=== PATIENT | female | born 1950 | race Caucasian/White ===

== ENCOUNTER 2016-09-23 18:32 | Emergency (ER) | payer MEDICARE ==
[2014-04-19 13:28] VITALS: BMI 23.8
[~2016-09-23 18:32] MED LIST: ADVAIR 250/501 DISK INH; BAYER CHEWABLE81 MG PO; BRILINTA90 MG PO; EFFEXOR XR75 MG PO; KLONOPIN1 MG PO; KOMBIGLYZE XR1 EAC1 PO; NEURONTIN600 MG PO; PRINIVIL20 MG PO; PROTONIX40 MG PO
== END 2016-09-23 20:30 | disposition home or self-care (01) ==
LOC: D.ER 18:32
DX: S00.03XA Contusion of scalp, initial encounter (principal); X58.XXXA Exposure to other specified factors, initial encounter; Y93.89 Activity, other specified; Y92.89 Other specified places as the place of occurrence of the external cause; S30.0XXA Contusion of lower back and pelvis, initial encounter; S16.1XXA Strain of muscle, fascia and tendon at neck level, initial encounter; I71.4 Abdominal aortic aneurysm, without rupture; J44.9 Chronic obstructive pulmonary disease, unspecified; I10 Essential (primary) hypertension

== ENCOUNTER 2016-10-02 19:45 | Observation (INO) | payer MEDICARE ==
[~2016-10-02] VITALS: Ht 170.2 cm; Wt 63.5 kg
[2016-10-03 00:51] VITALS: BMI 21.9
[2016-10-03] MEDS ORDERED: HYDROCHLOROTHIA25 MG PO (01:06)
[2016-10-03] MEDS ORDERED: ABILIFY20 MG PO (01:09)
[2016-10-03 08:02] VITALS: BP 124/76
[2016-10-03 11:38] LABS: BASOPHILS 0.1 % (0-2); EOSINOPHILS 3.3 % (0-7); HEMATOCRIT 39.8 % (36.0-48.0); HEMOGLOBIN 12.5 g/dL (12-16); IMMATURE GRANULOCYTES 0.4 % (0-5); LYMPHOCYTES 13.8 % (15-50); MCH 28.7 pg (26.0-34.0); MCHC 31.4 g/dL (31.0-37.0); MCV 91.5 fL (80.0-100.0); MEAN PLATELET VOLUME 9.7 fL (7.4-10.4); MONOCYTES 6.5 % (2-11); NEUTROPHILS 75.9 % (40-80); PLATELET COUNT 235 10x3/uL (130-400); RBC 4.35 10x6/uL (4.00-5.40); RDW 14.7 % (11.5-14.5)
[2016-10-03 12:01] LABS: ALBUMIN 3.3 g/dL (3.4-5.0); ANION GAP 16.4 mmol/L (8-16); BILIRUBIN - TOTAL 0.5 mg/dL (0.2-1.3); CALCIUM 9.4 mg/dL (8.5-10.1); CARBON DIOXIDE 23.8 mmol/L (21.0-32.0); CREATININE - SERUM 2.2 mg/dL (0.6-1.3); POTASSIUM - SERUM 4.2 mmol/L (3.5-5.1); PROTEIN - SERUM 7.5 g/dL (6.4-8.2)
[2016-10-03 12:28] VITALS: BP 133/80
[2016-10-03 14:01] VITALS: Ht 170.2 cm; Wt 63.5 kg
[2016-10-03 15:59] VITALS: BP 150/90
[2016-10-03 20:00] VITALS: BP 185/90
[2016-10-04] VITALS: BP 157/82
[2016-10-04 04:00] VITALS: BP 141/85
[2016-10-04 05:47] LABS: BASOPHILS 0.2 % (0-2); EOSINOPHILS 3.5 % (0-7); HEMATOCRIT 35.5 % (36.0-48.0); HEMOGLOBIN 10.8 g/dL (12-16); IMMATURE GRANULOCYTES 0.4 % (0-5); MCH 28.1 pg (26.0-34.0); MCHC 30.4 g/dL (31.0-37.0); MCV 92.2 fL (80.0-100.0); MEAN PLATELET VOLUME 9.7 fL (7.4-10.4); MONOCYTES 10.4 % (2-11); NEUTROPHILS 67.5 % (40-80); PLATELET COUNT 219 10x3/uL (130-400); RBC 3.85 10x6/uL (4.00-5.40); RDW 14.8 % (11.5-14.5)
[2016-10-04 05:51] LABS: WBC 5.1 10x3/uL (4.8-10.8)
[2016-10-04 06:04] LABS: ALBUMIN 2.9 g/dL (3.4-5.0); ANION GAP 16.6 mmol/L (8-16); BILIRUBIN - TOTAL 0.32 mg/dL (0.2-1.3); CARBON DIOXIDE 21.8 mmol/L (21.0-32.0); POTASSIUM - SERUM 4.4 mmol/L (3.5-5.1); PROTEIN - SERUM 6.6 g/dL (6.4-8.2)
[2016-10-04 08:17] VITALS: BP 153/97
[2016-10-04 12:03] VITALS: BP 179/100
[2016-10-04 16:06] VITALS: BP 146/95
[2016-10-04 20:00] VITALS: BP 171/92
[2016-10-05] VITALS: BP 124/76
[2016-10-05 04:00] VITALS: BP 139/56; BP 155/83
[2016-10-05 05:28] LABS: BASOPHILS 0.2 % (0-2); EOSINOPHILS 6.2 % (0-7); HEMOGLOBIN 10.4 g/dL (12-16); IMMATURE GRANULOCYTES 0.2 % (0-5); LYMPHOCYTES 19.1 % (15-50); MCH 28.3 pg (26.0-34.0); MCHC 31.5 g/dL (31.0-37.0); MEAN PLATELET VOLUME 9.7 fL (7.4-10.4); MONOCYTES 9.4 % (2-11); NEUTROPHILS 64.9 % (40-80); PLATELET COUNT 206 10x3/uL (130-400); RBC 3.68 10x6/uL (4.00-5.40); RDW 14.5 % (11.5-14.5); WBC 5.2 10x3/uL (4.8-10.8)
[2016-10-05 05:30] LABS: MCV 89.7 fL (80.0-100.0)
[2016-10-05 06:09] LABS: ALBUMIN 2.6 g/dL (3.4-5.0); ANION GAP 13.6 mmol/L (8-16); BILIRUBIN - TOTAL 0.36 mg/dL (0.2-1.3); CALCIUM 8.7 mg/dL (8.5-10.1); CARBON DIOXIDE 21.7 mmol/L (21.0-32.0); CREATININE - SERUM 1.6 mg/dL (0.6-1.3)
[2016-10-05 06:11] LABS: POTASSIUM - SERUM 3.3 mmol/L (3.5-5.1)
[2016-10-05 09:04] VITALS: BP 158/87
--- NOTE | 2016-10-07 14:23 | PRO ---
PATIENT:TIM GARCIA MEDICAL RECORD: [id number] : 54 LOCATION:D.[id number] ADMISSION DATE: 10/02/16 PROCEDURE PERFORMED BY: MARLENI PAULINO MD DATE OF PROCEDURE: 10/05/2016 DATE OF PROCEDURE: 10/05/2016. ASSISTANT PROFESSOR OF NURSING: Marleni Paulino MD. PROCEDURE: EGD with food bolus removal and Savary dilation to a 54-[place] Citizen size. INDICATION: The patient is a 66-year-old white female who was admitted with a questionable food bolus and chronic dysphagia. She has had multiple dilations over the years, the last being about little less than a year ago. She is eating roast beef and apparently became stuck in her esophagus. She was able to handle her secretions without difficulty. She is now for EGD. PREMEDICATION: Taper anesthesia. INSTRUMENT: Olympus video gastroscope. FINDINGS: The endoscope was passed through the oropharynx to the second portion of the duodenum without difficulty. The esophagus did reveal some roast beef at the GE junction. It seems like it was only a partial bolus, so I could easily pass scope into the stomach. I easily passed the rest this roast beef into the rest of the stomach without difficulty. What remained was a [id number] size hiatal hernia and a mild stricture at the GE junction, which I dilated with a 54-[place] Citizen Savary dilator without difficulty over a wire. The rest of the stomach and duodenum were normal. The patient tolerated procedure well without any complication. IMPRESSION: 1. Mild esophageal food bolus now status post removal as noted above. 2. Small to moderate sized hiatal hernia. 3. Mild chronic peptic stricture, now status post repeat Savary dilatation to a 54-[place] Citizen size. 4. Otherwise, normal esophagogastroduodenoscopy. RECOMMENDATIONS: 1. Okay to discharge home on a soft mechanical diet. 2. Protonix 40 mg daily to take indefinitely. 3. Repeat EGD with dilatation in about 6 months. 4. Okay for discharge planning by me. TRANSINT:[id number] Voice Confirmation ID: [id number] DOCUMENT ID: [id number] PROCEDURE NOTE [id number] TIM GARCIA JOHN MD at 1423 CC: CASANDRA GOODMAN MD [id number] DICTATION DATE: 10/05/16 1730 CLINICAL UNIT COORDINATOR: 10/06/16 0452 DIS IN 10/05/16 [facility] [address] [address] [place], [facility]
== END 2016-10-05 14:52 | disposition home or self-care (01) ==
LOC: D.ER 19:45 → D.MS 23:47 → OBSVTIME 23:48 → D.MS 10-05 14:52
PROVIDERS: ADMIT Emergency Medicine
DX: T18.128A Food in esophagus causing other injury, initial encounter (principal); X58.XXXA Exposure to other specified factors, initial encounter; R13.10 Dysphagia, unspecified; K44.9 Diaphragmatic hernia without obstruction or gangrene; K22.2 Esophageal obstruction

== ENCOUNTER → 2016-10-23 07:55 | Outpatient (CLI) | payer MEDICARE ==
[2016-10-03 14:01] VITALS: BMI 21.9
[~2016-10-23 07:55] MED LIST changes: +ABILIFY20 MG PO; +HYDROCHLOROTHIA25 MG PO
[2016-10-23 09:04] LABS: CREATININE - SERUM 1.8 mg/dL (0.6-1.3)
== END | disposition home or self-care (01) ==
LOC: D.CT 07:55
PROVIDERS: Family Medicine
DX: R91.1 Solitary pulmonary nodule (principal); R06.02 Shortness of breath

== ENCOUNTER → 2016-10-31 06:04 | Outpatient (CLI) | payer MEDICARE ==
[~2016-10-31] VITALS: Ht 170.2 cm; Wt 62.3 kg
[~2016-10-31 06:04] MED LIST changes: +LIBRIUM25 MG PO; +PROAIR HFA8.5 GM INH
[2016-10-31 06:45] VITALS: Ht 170.2 cm; Wt 62.3 kg
[2016-10-31 06:47] LABS: BASOPHILS 0.4 % (0-2); EOSINOPHILS 7.5 % (0-7); HEMATOCRIT 38.5 % (36.0-48.0); HEMOGLOBIN 11.9 g/dL (12-16); IMMATURE GRANULOCYTES 0.9 % (0-5); LYMPHOCYTES 25.6 % (15-50); MCH 28.2 pg (26.0-34.0); MCHC 30.9 g/dL (31.0-37.0); MCV 91.2 fL (80.0-100.0); MEAN PLATELET VOLUME 10.7 fL (7.4-10.4); MONOCYTES 8.9 % (2-11); NEUTROPHILS 56.7 % (40-80); PLATELET COUNT 246 10x3/uL (130-400); RBC 4.22 10x6/uL (4.00-5.40); RDW 14.5 % (11.5-14.5); WBC 5.6 10x3/uL (4.8-10.8)
[2016-10-31 06:59] LABS: CALCIUM 9.1 mg/dL (8.5-10.1); CREATININE - SERUM 2.4 mg/dL (0.6-1.3)
[2016-10-31 07:04] LABS: APTT 29.4 SECONDS (22.8-39.4); INR 0.88 (0.85-1.17); PROTIME 11.7 SECONDS (11.6-15.0)
--- NOTE | 2016-10-31 11:13 | NUR ---
0905 SEE POST PROCEDURE CHECKLIST FOR VITAL SIGNS
== END | disposition home or self-care (01) ==
LOC: D.OPS 06:04 → D.CT 08:00
PROVIDERS: Specialist
DX: R91.8 Other nonspecific abnormal finding of lung field (principal)

== ENCOUNTER 2019-07-28 14:39 | Inpatient (IN) | payer MEDICARE ==
[~2019-07-28] VITALS: Ht 170.2 cm; Wt 66.6 kg
[2019-07-28] MEDS ORDERED: ONGLYZA5 MG PO (14:47)
[2019-07-28] MEDS ORDERED: PRISTIQ100 MG PO (14:48)
[2019-07-28] MEDS ORDERED: LYRICA100 MG PO (14:49)
[2019-07-28] MEDS ORDERED: GLUCOTROL XL 1010 MG PO (14:49)
[2019-07-28] MEDS ORDERED: INDERAL LA160 MG PO (14:50)
[2019-07-28] MEDS ORDERED: ELIQUIS2.5 MG PO (14:50)
[2019-07-28 15:20] LABS: BASOPHILS 0.1 % (0-2); EOSINOPHILS 0.3 % (0-7); HEMOGLOBIN 9.8 g/dL (12-16); IMMATURE GRANULOCYTES 0.7 % (0-5); LYMPHOCYTES 8.5 % (15-50); MCHC 30.6 g/dL (31.0-37.0); MCV 88.2 fL (80.0-100.0); MEAN PLATELET VOLUME 10.7 fL (7.4-10.4); MONOCYTES 6.1 % (2-11); NEUTROPHILS 84.3 % (40-80); RBC 3.63 10x6/uL (4.00-5.40); RDW 15.9 % (11.5-14.5); WBC 8.7 10x3/uL (4.8-10.8)
[2019-07-28 15:32] LABS: PLATELET COUNT 193 10x3/uL (130-400)
[2019-07-28 15:38] LABS: CALC OSMOLALITY 275 mosm/kg (275-300); CALCIUM 8.9 mg/dL (8.5-10.1); CARBON DIOXIDE 33.8 mmol/L (21.0-32.0); CHLORIDE - SERUM 98 mmol/L (98-107); CREATININE - SERUM 1.3 mg/dL (0.6-1.3); GLUCOSE 176 mg/dL (74-106); SODIUM 134 mmol/L (136-145); UREA NITROGEN 25 mg/dL (7-18); eGFR NON AFRICAN AMERICAN 43 mL/min (90-120)
[2019-07-28 15:45] VITALS: BP 132/77
[2019-07-28 15:53] LABS: ALBUMIN 2.3 g/dL (3.4-5.0); ALKALINE PHOSPHATASE 119 U/L (30-120); ALT (SGPT) 20 U/L (10-68); BILIRUBIN - TOTAL 0.38 mg/dL (0.2-1.3); CKMB 1.3 U/L (0.0-3.6); CREATINE KINASE 12 UL (21-215); MAGNESIUM - SERUM 1.7 mg/dL (1.8-2.4); PRO BNP 7698 pg/mL (0-125); PROTEIN - SERUM 6.1 g/dL (6.4-8.2)
[2019-07-28 15:59] LABS: INR 1.23 (0.85-1.17); PROTIME 15.4 SECONDS (11.6-15.0)
[2019-07-28 16:01] LABS: D-DIMER-QUANTITATIVE 2.84 ug/mLFEU (0.20-0.54)
[2019-07-28 16:10] LABS: TROPONIN-I < 0.017 ng/mL (0.000-0.060)
[2019-07-28 16:50] VITALS: BP 127/73
[2019-07-28 17:46] VITALS: BP 139/84
--- NOTE | 2019-07-28 18:08 | NUR ---
PT REQUESTING FOOD. "I HAVEN'T EATEN SINCE YEST" SPOKE WITH DR MADRIGAL AND MEAL SERVED
[2019-07-28 19:00] LABS: % SATURATION 15 % (15-55); IRON 39 ug/dl (35-150); TOTAL IRON BIND CAPACITY 251 ug/dl (260-445); UNSAT IRON BIND CAPACITY 212 ug/dl (150-375)
--- NOTE | 2019-07-28 19:14 | NUR ---
BS REPORT TO NANCI BROUSSARD
--- NOTE | 2019-07-28 19:34 | NUR ---
FSBS 203.
[2019-07-28] MEDS ORDERED: XANAX0.5 MG PO (22:31)
[2019-07-28] MEDS ORDERED: CATAPRES0.1 MG PO (22:33)
[2019-07-28 22:54] VITALS: BP 168/97; BMI 17.2
[2019-07-29 04:00] VITALS: BP 135/72
[2019-07-29 06:34] LABS: BASOPHILS 0 % (0-2); EOSINOPHILS 0 % (0-7); HEMATOCRIT 32.3 % (36.0-48.0); HEMOGLOBIN 9.9 g/dL (12-16); IMMATURE GRANULOCYTES 1.3 % (0-5); LYMPHOCYTES 6.9 % (15-50); MCH 26.9 pg (26.0-34.0); MCHC 30.7 g/dL (31.0-37.0); MCV 87.8 fL (80.0-100.0); MEAN PLATELET VOLUME 10.5 fL (7.4-10.4); MONOCYTES 1.5 % (2-11); NEUTROPHILS 90.3 % (40-80); PLATELET COUNT 200 10x3/uL (130-400); RBC 3.68 10x6/uL (4.00-5.40)
[2019-07-29 06:44] LABS: WBC 5.4 10x3/uL (4.8-10.8)
[2019-07-29 07:02] LABS: ALBUMIN 2.5 g/dL (3.4-5.0); ALKALINE PHOSPHATASE 122 U/L (30-120); ALT (SGPT) 20 U/L (10-68); BILIRUBIN - TOTAL 0.41 mg/dL (0.2-1.3); CALCIUM 8.5 mg/dL (8.5-10.1); CHLORIDE - SERUM 97 mmol/L (98-107); CKMB 1.2 U/L (0.0-3.6); CREATINE KINASE 10 UL (21-215); MAGNESIUM - SERUM 1.8 mg/dL (1.8-2.4); POTASSIUM - SERUM 4.6 mmol/L (3.5-5.1); PRO BNP 6981 pg/mL (0-125); PROTEIN - SERUM 5.7 g/dL (6.4-8.2); SODIUM 135 mmol/L (136-145); TROPONIN-I < 0.017 ng/mL (0.000-0.060)
[2019-07-29 07:06] LABS: CALC OSMOLALITY 287 mosm/kg (275-300); CREATININE - SERUM 1.7 mg/dL (0.6-1.3); GLUCOSE 275 mg/dL (74-106); UREA NITROGEN 35 mg/dL (7-18); eGFR NON AFRICAN AMERICAN 32 mL/min (90-120)
--- NOTE | 2019-07-29 07:49 | NUR ---
PATIENT RESTING IN BED THIS AM WAS GIVEN 6AM MEDS. C/O CHEST PAIN WHEN ASK WHAT KIND OF PAIN SHE STATED IT WAS A BRUNNING PAIN. V/S TAKEN TEMP 97.6, B/P 128/82, HR 135, RESP18,97% ON 4 LEATERS O2. FSBS WAS 348 S/S GIVEN MORPHINE GIVEN FOR PAIN CALL TO HEREDITARY CANCER PROGRAM COORDINATOR ORDER FOR EKG AND A ONE TIME ORDER FOR XANAX 0.5MG PO. PATIENT STATED FELLING BETTER AFTE A FEW MIN EKG DONE AND PLACED IN CHART.PATINT RESTING IN BED WITH NO NEEDS .
[2019-07-29 09:18] VITALS: BP 132/86
--- NOTE | 2019-07-29 10:01 | NUR ---
Rehab Prescreening Consult recieved and the chart has been reviewed. She is managed Medicare and will require a preauth for rehab. She is a new admit and has evals PT/ST/OT pending. Daria Pelletier RN Clinical Liaison, Rehab
--- NOTE | 2019-07-29 10:29 | NUR ---
PT RESTING IN BED. NO SIGNS OF DISTRESS. IV TO LEFT CHEST PORT PATENT NO REDNESS OR TENDERNESS. ON 4L NC. ON TELEMETRY 76 SR. DENIES ANY FURTHER NEED AT THIS TIME. CALL LIGHT IN REACH. BED LOW POSITION. NO FAMILY AT BEDSIDE AT THIS TIME.
[2019-07-29 12:00] VITALS: BP 139/76
--- NOTE | 2019-07-29 13:13 | NUR ---
TRANSFERED FROM [facility] BY BED FOR [facility]. TELEMETRY SR IN 60S AT THIS TIME. WILL CONT. PLAN OF CARE.
[2019-07-29 13:18] VITALS: BMI 17.2
[2019-07-29 13:57] LABS: CKMB 1.7 U/L (0.0-3.6); CREATINE KINASE 17 UL (21-215); TROPONIN-I < 0.017 ng/mL (0.000-0.060)
--- NOTE | 2019-07-29 14:54 | MORECARE ---
CASE MANAGEMENT DISCHARGE SUMMARY PATIENT: TIM GARCIA UNIT: [id number] ADM DATE: 07/28/19 AGE: 69 : 52 SEX: F ROOM/BED: D.[facility] [place] AUTHOR: JG MONACO PHYSICIAN: REFERRING PHYSICIAN: MARLENI GOODMAN MD DATE OF SERVICE: 07/29/19 Discharge Plan Patient Name: TIM GARCIA [facility] [facility] 1950 Planned Disposition: Inpatient Rehab Anticipated Discharge Date: Discharge Date: Expected LOS: Initial Reviewer: [email or web address] Initial Review Date: 07/29/2019 Generated: 07/29/19 3:54 pm DCPIA - Discharge Planning Initial Assessment Updated by [email or web address]: Mis Desouza on 07/29/19 2:50 pm * Is the patient Alert and Oriented? Yes * How many steps to enter\exit or inside your home? 5/0 * PCP Dr. Deal * Preadmission Environment Home Alone * ADLs Partial Dependent * Partial ADLs (Assistance needed) Ambulation * Equipment Bedside Commode Nebulizer Other Oxygen Shower Chair Walker * Other Equipment Portable oxygen * List name and contact numbers for known caregivers / representatives who currently or will assist patient after discharge: Hosea Arshad [facility] - [phone] (message phone) * Verbal permission to speak to the caregivers and representatives has been obtained from the patient. Yes * Community resources currently utilized Home Health * Please name any agencies selected above. [facility] * Additional services required to return to the preadmission environment? No * Can the patient safely return to the preadmission environment? Yes * Has this patient been hospitalized within the prior 30 days at any hospital? No Patient Name: TIM GARCIA Page [id number] at 1454 All edits/amendments must be made on the electronic document DICTATION DATE: 07/29/191453 ENGINEERING AND DEVELOPMENT DIRECTOR: YOVANA 07/29/191453 RPT#: [id number] DC DATE: STATUS: ADM IN [facility] [address] [place] [address] END OF REPORT
--- NOTE | 2019-07-29 15:03 | MORECARE ---
CASE MANAGEMENT DISCHARGE SUMMARY PATIENT: TIM GARCIA UNIT: [id number] ADM DATE: 07/28/19 AGE: 69 : 52 SEX: F ROOM/BED: D.9754 AUTHOR: CARLOS ENRIQUE,DOC PHYSICIAN: REFERRING PHYSICIAN: MARLENI GOODMAN MD DATE OF SERVICE: 07/29/19 Discharge Plan Patient Name: TIM GARCIA Facility: [facility]:[place] : 1950 Planned Disposition: Inpatient Rehab Anticipated Discharge Date: Discharge Date: Expected LOS: Initial Reviewer: [email or web address] Initial Review Date: 07/29/2019 Generated: 07/29/19 4:02 pm Comments DCP- Discharge Planning Updated by [email or web address]: Mis Desouza on 07/29/19 1:[address] Patient Name: TIM GARCIA Admission Status: ER Accout number: [id number] Admission Date: 07-28-2019 : 1950 Admission Diagnosis: Attending: CASANDRA GOODMAN Current LOS: 1 Anticipated DC Date: Planned Disposition: Inpatient Rehab Primary Insurance: [facility] MEDIC[facility] SOLUTIONS Discharge Planning Comments: CM met with patient to complete initial dc planning assessment. CM educated patient on the CM role and verbal consent given by patient to complete assessment. Patient lives at home alone, States her son lives on the same property. CM discussed availability of home health, rehab services, and medical equipment. Patient states she needs to get stronger and would like a referral to inpatient rehab at [facility]. I informed her that her insurance would need to authorize her to go first. She states her second choice is [facility]. I asked her if she would consider SNF if they did not authorize inpatient rehab and she states "Let's cross that bridge later." CM will continue to follow and will assist as needed with dc plans/needs. Wood Fence Erector: Mis Desouza DCPIA - Discharge Planning Initial Assessment Updated by [id number]: Mis Desouza on 07/29/19 2:50 pm * Is the patient Alert and Oriented? Yes * How many steps to enter\\exit or inside your home? 5/0 * PCP Dr. Deal * Preadmission Environment Home Alone * ADLs Partial Dependent * Partial ADLs (Assistance needed) Ambulation * Equipment Bedside Commode Nebulizer Other Oxygen Shower Chair Walker * Other Equipment Portable oxygen * List name and contact numbers for known caregivers / representatives who currently or will assist patient after discharge: Hosea sheirff - [phone] (message phone) * Verbal permission to speak to the caregivers and representatives has been obtained from the patient. Yes * Community resources currently utilized Home Health * Please name any agencies selected above. [facility] * Additional services required to return to the preadmission environment? No * Can the patient safely return to the preadmission environment? Yes * Has this patient been hospitalized within the prior 30 days at any hospital? No Coverage Notice Reviewer: [id number] Naty Desouza Notice Issued Date-Time: 07/29/2019 14:56 Notice Type: Patient Choice Letter Notice Delivered To: Patient Relationship to Patient: Self Hand Cutter Name: Delivery Method: HAND - Hand Delivered Kinza Days: Prior Verbal Notification: Recipient Understood Notice: Yes Recipient Signature: Yes Med Rec Note Co-signed by Attending: Coverage Notice Comment: EMILIA for 1)[facility] inpatient rehab 2) [facility] DP export: 07/29/19 1:54 pm Patient Name: TIM GARCIA Page [id number] at 1503 All edits/amendments must be made on the electronic document DICTATION DATE: 07/29/191501 NEWSPAPER PHOTO EDITOR: YOVANA 07/29/19 150 RPT#: [id number] DC DATE: STATUS: [facility] [address] [place] [address] END OF REPORT
[2019-07-29 16:51] VITALS: Ht 170.2 cm; Wt 66.6 kg
--- NOTE | 2019-07-29 19:11 | NUR ---
RECEIVED BEDSIDE REPORT. PATIENT IS ALERT AND ORIENTED, RESTING COMFORTABLY IN BED. RESPIRATIONS ARE EVEN AND UNLABORED. NO S/S OF DISTRESS. NO C/O PAIN. CALL LIGHT WITHIN REACH. WILL CPOC.
[2019-07-29 19:28] LABS: CKMB 1.3 U/L (0.0-3.6); CREATINE KINASE 12 UL (21-215); TROPONIN-I 0.022 ng/mL (0.000-0.060)
[2019-07-29 21:17] VITALS: BP 151/71
[2019-07-29 21:56] LABS: BACTERIA FEW /hpf (NEGATIVE); BILIRUBIN NEGATIVE (NEGATIVE); EPITHELIAL CELLS >50 /hpf (0-5); GLUCOSE 50 mg/dL (NEGATIVE); KETONE NEGATIVE (NEGATIVE); NITRITE NEGATIVE (NEGATIVE); RED CELLS - URINE OCC /hpf (0-5); SPECIFIC GRAVITY 1.015 (1.005-1.020); UROBILINOGEN NORMAL (NORMAL); WHITE CELLS - URINE 0-5 /hpf (NEGATIVE); YEAST >1+ /hpf (NONE SEEN)
[2019-07-30 00:31] VITALS: BP 173/82
[2019-07-30 01:45] LABS: CKMB 1.3 U/L (0.0-3.6); CREATINE KINASE 11 UL (21-215)
[2019-07-30 04:20] LABS: BASOPHILS 0 % (0-2); EOSINOPHILS 0 % (0-7); HEMOGLOBIN 9.9 g/dL (12-16); IMMATURE GRANULOCYTES 0.5 % (0-5); LYMPHOCYTES 4.2 % (15-50); MCH 26.9 pg (26.0-34.0); MCHC 30.9 g/dL (31.0-37.0); MONOCYTES 5.7 % (2-11); NEUTROPHILS 89.6 % (40-80); RBC 3.68 10x6/uL (4.00-5.40); RDW 16.2 % (11.5-14.5)
[2019-07-30 04:23] LABS: PLATELET COUNT 242 10x3/uL (130-400); WBC 14.3 10x3/uL (4.8-10.8)
[2019-07-30 04:30] LABS: ANION GAP 9.6 mmol/L (8-16); CALCIUM 8.9 mg/dL (8.5-10.1); CREATININE - SERUM 2.1 mg/dL (0.6-1.3)
[2019-07-30 04:34] VITALS: BP 123/89
[2019-07-30 04:53] LABS: POTASSIUM - SERUM 3.6 mmol/L (3.5-5.1)
--- NOTE | 2019-07-30 07:10 | NUR ---
REPORT RECEIVED FROM FLORAL SPECIALIST AND PATIENT CARE ASSUMED. PATIENT LAYING IN BED AWAKE ALERT. PATIENT IS STABLE AND VSS. PATIENT DENIES ANY NEEDS OR PAIN. WILL CONTINUE TO MONITOR. SR UP X 2 BED IN LOW POSITION AND CALL LIGHT IN REACH.
[2019-07-30 08:04] VITALS: BP 155/80
--- NOTE | 2019-07-30 10:36 | NUR ---
PATIENT IS UNCHANGED. WILL CONTINUE TO MONITOR. SR UP X 2 BED IN LOW POSITION AND CALL LIGHT IN REACH.
[2019-07-30 12:34] VITALS: BP 164/84
--- NOTE | 2019-07-30 13:46 | NUR ---
PATIENT STILL IN BS CHAIR. TOLERATING WELL. PATIENT DENIES ANY NEEDS OR PAIN. FRIEND AT BS. WILL CONTINUE TO MONITOR. CALL LIGHT IN REACH.
--- NOTE | 2019-07-30 14:30 | NUR ---
PATIENT UP TO SHOWER, COMPLETE LINEN CHANGE AND BACK TO BED. PATIENT IS STABLE AND VSS. PATIENT DENIES ANY NEEDS OR PAIN. WILL CONTINUE TO MONITOR. SR UP X 2 BED IN LOW POSITION AND CALL LIGHT IN REACH.
--- NOTE | 2019-07-30 14:30 | NUR ---
NEW PATIENT ADMIT FROM ER VIA WC ACCOMPANIED HOPSITAL STAFF AND SON. PATIENT TRANSFERED TO BED EASILY. PATIENT IS AWAKE, ALERT AND ORIENTED X 4. PATIENT IS STABLE AND VSS. PATIENT DENIES ANY NEEDS OR PAIN. IV TO LT HAND PATENT AND SL. WILL CONTINUE WITH PLAN OF CARE. SR UP X 2 BED IN LOW POSITION AND CALL LIGHT IN REACH.
--- NOTE | 2019-07-30 14:30 | NUR ---
PATIENT BS 526. PER PROTOCOL SLIDING SCALE GAVE PATIENT 28 UNITS OF HUMALOG AND CONTACTED MEDICAL PROFESSIONAL. PAGED ERIC, RN, ADJUNCT ART HISTORY INSTRUCTOR TWICE. RETURN PHONE CALL RECEIVED IN 20 MONUTES. INFORMED ERIC OF BS RESULTS. SHE STATED" THATS WHY YOU ARE CALLING ME? JUST FOLLOW THE PROTOCOL AND HUNG UP THE PHONE."
[2019-07-30 16:11] VITALS: BP 165/87
--- NOTE | 2019-07-30 17:45 | NUR ---
DR MCCLELLAND IN ROOM. NEW ORDERS RECEIVED. PATIENT RESTING QUIETLY . PATIENT DENIES ANY NEEDS OR PAIN. SON AT BS. WILL CONTINUE TO MONITOR. SR UPX 2 BED IN LOW POSITION AND CALL LIGHT IN REACH.
--- NOTE | 2019-07-30 18:00 | NUR ---
RECHECKED BS 496. MEDICATED PER SLINGING SCALE WITH 28 UNITS. WILL CONTINUE TO MONITOR. SR UP X 2 BED IN LOW POSITION AND CALL LIGHT IN REACH.
--- NOTE | 2019-07-30 18:14 | NUR ---
OT NOTE: PT COMPLETED SUPINE TO SIT WITH SBA.PT COMPLETED EOB STATIC SITTING WITH SBA. PT COMPLETED SIT TO STAND WITH CGA. PT COMPLETED UE AROM EXS AT EOB WITH REST BREAKS. PT COMPLETED FACE HYGIENE TASK WITH SETUP. [phone] THANK YOU,CHUCKY LAFLEUR
--- NOTE | 2019-07-30 19:15 | NUR ---
RECEIVED BEDSIDE REPORT. PATIENT IS ALERT AND ORIENTED, RESTING COMFORTABLY IN BED. RESPIRATIONS ARE EVEN AND UNLABORED. NO S/S OF DISTRESS. NO C/O PAIN. CALLL IGHT WITHIN REACH. WILL CPOC.
[2019-07-30 20:00] VITALS: BP 148/77
[2019-07-31] VITALS: BP 144/92
[2019-07-31 04:00] VITALS: BP 138/84
[2019-07-31 04:28] LABS: BASOPHILS 0.1 % (0-2); EOSINOPHILS 0 % (0-7); HEMATOCRIT 30.4 % (36.0-48.0); HEMOGLOBIN 9.4 g/dL (12-16); IMMATURE GRANULOCYTES 0.9 % (0-5); LYMPHOCYTES 3.3 % (15-50); MCH 27.2 pg (26.0-34.0); MCHC 30.9 g/dL (31.0-37.0); MCV 87.9 fL (80.0-100.0); MEAN PLATELET VOLUME 10.5 fL (7.4-10.4); MONOCYTES 3.5 % (2-11); NEUTROPHILS 92.2 % (40-80); PLATELET COUNT 229 10x3/uL (130-400); RBC 3.46 10x6/uL (4.00-5.40); RDW 16.6 % (11.5-14.5); WBC 14.3 10x3/uL (4.8-10.8)
[2019-07-31 04:41] LABS: ANION GAP 7.9 mmol/L (8-16); CALCIUM 8.1 mg/dL (8.5-10.1); CARBON DIOXIDE 35.4 mmol/L (21.0-32.0); CREATININE - SERUM 2.5 mg/dL (0.6-1.3); MAGNESIUM - SERUM 1.8 mg/dL (1.8-2.4); VANCOMYCIN - RANDOM 10.4 ug/mL (10.0-20.0)
[2019-07-31 04:46] LABS: POTASSIUM - SERUM 4.3 mmol/L (3.5-5.1)
--- NOTE | 2019-07-31 07:10 | NUR ---
REPORT RECEVIED FROM BIN PACKER AND PATIENT CARE ASSUMED. PATIENT LAYING IN BED ON BACK AWAKE, ALERT AND ORIENTED X 4. PATIENT IS STABLE AND VSS. PATIENT DENIES ANY NEEDS OR PAIN. WILL CONTINUE WITH PLAN OF CARE. SR UPX 2 BED IN LOW POSITION AND CALL LIGHT IN REACH.
[2019-07-31 09:55] VITALS: BP 127/64
--- NOTE | 2019-07-31 11:31 | NUR ---
PATIENT IS STABLE AND VSS. NEW ORDERS RECEIVED. PATIENT HAS NOT HAD BM TO COLLECT A SPECIMEN. WILL CONTINUE TO MONITOR. SR UP X 2 BED IN LOW POSITION AND CALL LIGHT IN REACH.
--- NOTE | 2019-07-31 11:57 | NUR ---
Rehab Note- Received voicemail from Kay Marshall with [facility] with an approval auth #[id number] for an inpatient acute rehab stay for 7 days. F/U review nurse is Robby Carranza phone #[phone], fax #[phone]. Kay's call back number is [phone] if an questions. Will notify of auth approval. Thanks for this referral! Ericka Inman RN Clinical Liaison, [facility] Rehab
--- NOTE | 2019-07-31 12:02 | NUR ---
OT NOTE: PT DOING BETTER TODAY. REPORTS THAT SHE FEELS BETTER. BED MOB WITH SPV; ABLE TO WASH HANDS, FACE, AND CHEST WITH WARM CLOTH. ABLE TO BREANN SOCKS WITH SET UP. AMB WITH WALKER AND 02 AT 6L WITH MIN ASSIST (GAIT MORE STEADY TODAY) X 120 FT.. ONE REST BREAK REQUIRED AND 02 DROPPED TO LOW 80S...AFTER RETURNING TO ROOM WITH REST BREAK, 02 BACK UP TO 90%. PT SITTING UP IN CHAIR WITH CALL LIGHT IN REACH. GURWINDER FALL, OTR/L [phone]
--- NOTE | 2019-07-31 13:10 | NUR ---
Nutrition Follow-up: Eating well. Reports eating ~75% of breakfast this AM. Drank 3 Glucerna yesterday. Reports last BM ~4 days ago; takes Benefiber at home. Diet: Diabetic, Glucerna TID No new wt; last wt: 110# (07/28) Labs noted: Glu 221, Ca 8.1 Meds noted: Humalog, Protonix, Prednisone -Encourage PO intake and honor food preferences within diet restrictions. -Need new wt; noted daily wts ordered. -MD may consider GI motility agent. -RD following.
--- NOTE | 2019-07-31 14:42 | MORECARE ---
CASE MANAGEMENT DISCHARGE SUMMARY PATIENT: TIM GARCIA UNIT: [id number] ADM DATE: 07/28/19 AGE: 69 : 52 SEX: F ROOM/BED: D.9829 AUTHOR: CARLOS ENRIQUE,JG PHYSICIAN: REFERRING PHYSICIAN: MARLENI GOODMAN MD DATE OF SERVICE: 07/31/19 Discharge Plan Patient Name: TIM GARCIA Facility: [facility]:[place] : 1950 Planned Disposition: Inpatient Rehab Anticipated Discharge Date: 07/31/19 Discharge Date: Expected LOS: 3 Initial Reviewer: [email or web address] Initial Review Date: 07/29/2019 Generated: 07/31/19 3:42 pm Comments DCP- Discharge Planning Updated by [id number]: Mis Desouza on 07/29/19 1:[address] Patient Name: TIM GARCIA Admission Status: ER Accout number: [id number] Admission Date: 07-28-2019 : 1950 Admission Diagnosis: Attending: CASANDRA GOODMAN Current LOS: 1 Anticipated DC Date: Planned Disposition: Inpatient Rehab Primary Insurance: [facility] MEDICARE SOLUTIONS Discharge Planning Comments: CM met with patient to complete initial dc planning assessment. CM educated patient on the CM role and verbal consent given by patient to complete assessment. Patient lives at home alone, States her son lives on the same property. CM discussed availability of home health, rehab services, and medical equipment. Patient states she needs to get stronger and would like a referral to inpatient rehab at [facility]. I informed her that her insurance would need to authorize her to go first. She states her second choice is [facility]. I asked her if she would consider SNF if they did not authorize inpatient rehab and she states "Let's cross that bridge later." CM will continue to follow and will assist as needed with dc plans/needs. Maintenance Associate: Mis Desouza DCPIA - Discharge Planning Initial Assessment Updated by [id number]: Mis Desouza on 07/29/19 2:50 pm * Is the patient Alert and Oriented? Yes * How many steps to enter\\exit or inside your home? 5/0 * PCP Dr. Deal * Preadmission Environment Home Alone * ADLs Partial Dependent * Partial ADLs (Assistance needed) Ambulation * Equipment Bedside Commode Nebulizer Other Oxygen Shower Chair Walker * Other Equipment Portable oxygen * List name and contact numbers for known caregivers / representatives who currently or will assist patient after discharge: Hosea sheriff - [phone] (message phone) * Verbal permission to speak to the caregivers and representatives has been obtained from the patient. Yes * Community resources currently utilized Home Health * Please name any agencies selected above. [facility] * Additional services required to return to the preadmission environment? No * Can the patient safely return to the preadmission environment? Yes * Has this patient been hospitalized within the prior 30 days at any hospital? No Coverage Notice Reviewer: [id number] Naty Desouza Notice Issued Date-Time: 07/29/2019 14:56 Notice Type: Patient Choice Letter Notice Delivered To: Patient Relationship to Patient: Self Cloth Measurer Machine Name: Delivery Method: HAND - Hand Delivered Kinza Days: Prior Verbal Notification: Recipient Understood Notice: Yes Recipient Signature: Yes Med Rec Note Co-signed by Attending: Coverage Notice Comment: EMILIA for 1)[facility] inpatient rehab 2) [facility] Reviewer: [id number] - Prashant Walker Notice Issued Date-Time: 07/31/2019 14:15 Notice Type: IM Discharge Notice Notice Delivered To: Patient Relationship to Patient: Cloth Measurer Machine Name: Delivery Method: HAND - Hand Delivered Kinza Days: Prior Verbal Notification: Recipient Understood Notice: Yes Recipient Signature: Yes Med Rec Note Co-signed by Attending: Coverage Notice Comment: Last DP export: 07/29/19 2:03 pm Patient Name: TIM GARCIA Page 17981 at 1442 All edits/amendments must be made on the electronic document DICTATION DATE: 07/31/19 1442 EVALUATOR TRANSFER STUDENTS: YOVANA 07/31/19 1442 RPT#: [id number] DC DATE: STATUS: ADM IN [facility] [address] [place] [address] END OF REPORT
--- NOTE | 2019-07-31 14:59 | MORECARE ---
CASE MANAGEMENT DISCHARGE SUMMARY PATIENT: TIM GARCIA UNIT: [id number] ADM DATE: 07/28/19 AGE: 69 : [birth year] SEX: F ROOM/BED: D.9599 AUTHOR: CARLOS ENRIQUE,DOC PHYSICIAN: REFERRING PHYSICIAN: MARLENI GOODMAN MD DATE OF SERVICE: 07/31/19 Discharge Plan Patient Name: TIM GARCIA [facility] [facility] 1950 Planned Disposition: Inpatient Rehab Anticipated Discharge Date: 07/31/19 Discharge Date: Expected LOS: 3 Initial Reviewer: [id number] Initial Review Date: 07/29/2019 Generated: 07/31/19 3:59 pm Comments DCP- Discharge Planning Updated by [id number]: Prashant Walker on 07/31/19 1:[address] Patient Name: TIM GARCIA Encounter No: [id number] : 1950 Primary Insurance: [facility] MEDICARE SOLUTIONS Anticipated DC Date: 07-31-2019 Planned Disposition: Inpatient Rehab External Planned Provider: [facility] INPATIENT REHAB DCP follow-up note: CM SPOKE TO [facility]ARK OF INPATIENT REHAB, THEY PLAN TO ACCEPT PT TODAY FOR REHAB AFTER PT'S RENAL ULTRASOUND; THEY HAVE RECEIVED INSURANCE AUTHORIZATION. PT NOTIFIED, IN AGREEMENT WITH DISCHARGE TO INPATIENT REHAB. PT STATES SHE IS NOT READY TO DISCHARGE HOME DUE TO HAVING BREATHING TROUBLE BUT IS NOT HAPPY WITH HER CARE. CM EXPLAINED INPATIENT REHAB AND SERVICES IN REHAB. PT STATES SHE WILL GO AND TRY IT OUT. PT'S SON CALLED PT IN ROOM, PT ASKED CM TO SPEAK TO HER SON. SON INFORMED CM THAT HE WAS THINKING OF COMING TO TAKE PT HOME, CM EXPLAINED REHAB APPROVAL BY INSURANCE AND THAT REHAB WILL TAKE PT TODAY. PT'S SON SEEMED TO ALSO BE IN AGREEMENT AND STATES IT HIS MOTHERS CHOICE. CM SPOKE TO PT WHO IS IN AGREEMENT WITH REHAB. PT ASKED THAT THE TRAVEL ADMINISTRATOR NOT GIVE HER ANOTHER MED NEB TREATMENT NOW BECAUSE IT IS WEARING HER OUT. CM PROVIDED PT WITH DIRECT SUPPORT STAFF MEMBER NUMBER TO CALL IF HER CARE WAS BAD, PT STATES THAT HER NURSE MANDI IS CARRYING THE WHOLE UNIT. CM ALSO ADVISED THAT CM WILL HAVE UNIT WATERPROOF MATERIAL FOLDER SEE HER REGARDING HER CARE COMPLAINTS. CM NOTIFIED UNIT NURSE CRYSTAL CUTTER REAL. SEBASTIEN ROSS NOTIFIED. PT CAN DISCHARGE TO INPATIENT REHAB ONCE RENAL ULTRASOUND IS COMPLETED. [facility] INPATIENT REHAB TO CONTACT [facility] 2 NURSE WITH ROOM NUMBER WHEN READY TO ACCEPT PT AND NURSE REPORT. Prashant Walker, CASE MANAGEMENT DCP- Discharge Planning Updated by [id number]: Mis Desouza on 07/29/19 1:[address] Patient Name: TIM GARCIA Admission Status: ER Accout number: [id number] Admission Date: 07-28-2019 : 1950 Admission Diagnosis: Attending: CASANDRA GOODMAN Current LOS: 1 Anticipated DC Date: Planned Disposition: Inpatient Rehab Primary Insurance: [facility] MEDICARE SOLUTIONS Discharge Planning Comments: CM met with patient to complete initial dc planning assessment. CM educated patient on the CM role and verbal consent given by patient to complete assessment. Patient lives at home alone, States her son lives on the same property. CM discussed availability of home health, rehab services, and medical equipment. Patient states she needs to get stronger and would like a referral to inpatient rehab at [facility]. I informed her that her insurance would need to authorize her to go first. She states her second choice is [facility]. I asked her if she would consider SNF if they did not authorize inpatient rehab and she states "Let's cross that bridge later." CM will continue to follow and will assist as needed with dc plans/needs. Packaging Technician: Mis Desouza DCPIA - Discharge Planning Initial Assessment Updated by [email or web address]: Mis Desouza on 07/29/19 2:50 pm * Is the patient Alert and Oriented? Yes * How many steps to enter\\exit or inside your home? 5/0 * PCP Dr. Deal * Preadmission Environment Home Alone * ADLs Partial Dependent * Partial ADLs (Assistance needed) Ambulation * Equipment Bedside Commode Nebulizer Other Oxygen Shower Chair Walker * Other Equipment Portable oxygen * List name and contact numbers for known caregivers / representatives who currently or will assist patient after discharge: Hosea Arshad - son - [phone] (message phone) * Verbal permission to speak to the caregivers and representatives has been obtained from the patient. Yes * Community resources currently utilized Home Health * Please name any agencies selected above. [facility] * Additional services required to return to the preadmission environment? No * Can the patient safely return to the preadmission environment? Yes * Has this patient been hospitalized within the prior 30 days at any hospital? No Coverage Notice Reviewer: [id number] - Mis Desouza Notice Issued Date-Time: 07/29/2019 14:56 Notice Type: Patient Choice Letter Notice Delivered To: Patient Relationship to Patient: Self Systems Trainer Name: Delivery Method: HAND - Hand Delivered Kinza Days: Prior Verbal Notification: Recipient Understood Notice: Yes Recipient Signature: Yes Med Rec Note Co-signed by Attending: Coverage Notice Comment: EMILIA for 1)[facility] inpatient rehab 2) [facility] Reviewer: [id number] - Prashant Walker Notice Issued Date-Time: 07/31/2019 14:15 Notice Type: IM Discharge Notice Notice Delivered To: Patient Relationship to Patient: Systems Trainer Name: Delivery Method: HAND - Hand Delivered Kinza Days: Prior Verbal Notification: Recipient Understood Notice: Yes Recipient Signature: Yes Med Rec Note Co-signed by Attending: Coverage Notice Comment: Last DP export: 07/31/19 1:42 pm Patient Name: TIM GARCIA Page [id number] at 1459 All edits/amendments must be made on the electronic document DICTATION DATE: 07/31/19 1458 OPTICAL LABORATORY MANAGER: YOVANA 07/31/19 1453 RPT#: [id number] DC DATE: STATUS: ADM IN [facility] [address] [place] [address] END OF REPORT
--- NOTE | 2019-07-31 15:08 | MORECARE ---
CASE MANAGEMENT DISCHARGE SUMMARY PATIENT: TIM GARCIA UNIT: [id number] ADM DATE: 07/28/19 AGE: 69 : 52 SEX: F ROOM/BED: D.8733 AUTHOR: CARLOS ENRIQUE,DOC PHYSICIAN: REFERRING PHYSICIAN: MARLENI GOODMAN MD DATE OF SERVICE: 07/31/19 Discharge Plan Patient Name: TIM GARCIA [facility] [facility] 1950 Planned Disposition: Inpatient Rehab Anticipated Discharge Date: 07/31/19 Discharge Date: Expected LOS: 3 Initial Reviewer: [id number] Initial Review Date: 07/29/2019 Generated: 07/31/19 4:08 pm Comments DCP- Discharge Planning Updated by [id number]: Prashant Walker on 07/31/19 1:[address] Patient Name: TIM GARCIA Encounter No: [id number] : 1950 Primary Insurance: [facility] MEDICARE SOLUTIONS Anticipated DC Date: 07-31-2019 Planned Disposition: Inpatient Rehab External Planned Provider: [facility] INPATIENT REHAB DCP follow-up note: CM SPOKE TO [facility] OF INPATIENT REHAB, THEY PLAN TO ACCEPT PT TODAY FOR REHAB AFTER PT'S RENAL ULTRASOUND; THEY HAVE RECEIVED INSURANCE AUTHORIZATION. PT NOTIFIED, IN AGREEMENT WITH DISCHARGE TO INPATIENT REHAB. PT STATES SHE IS NOT READY TO DISCHARGE HOME DUE TO HAVING BREATHING TROUBLE BUT IS NOT HAPPY WITH HER CARE. CM EXPLAINED INPATIENT REHAB AND SERVICES IN REHAB. PT STATES SHE WILL GO AND TRY IT OUT. PT'S SON CALLED PT IN ROOM, PT ASKED CM TO SPEAK TO HER SON. SON INFORMED CM THAT HE WAS THINKING OF COMING TO TAKE PT HOME, CM EXPLAINED REHAB APPROVAL BY INSURANCE AND THAT REHAB WILL TAKE PT TODAY. PT'S SON SEEMED TO ALSO BE IN AGREEMENT AND STATES IT HIS MOTHERS CHOICE. CM SPOKE TO PT WHO IS IN AGREEMENT WITH REHAB. PT ASKED THAT THE BATTER DEPOSITOR NOT GIVE HER ANOTHER MED NEB TREATMENT NOW BECAUSE IT IS WEARING HER OUT. CM PROVIDED PT WITH GENERAL SUPERINTENDENT NUMBER TO CALL IF HER CARE WAS BAD, PT STATES THAT HER NURSE MANDI IS CARRYING THE WHOLE UNIT. CM ALSO ADVISED THAT CM WILL HAVE UNIT MARBLEIZER SEE HER REGARDING HER CARE COMPLAINTS. CM NOTIFIED UNIT NURSE CLINICAL INFORMATICS PHYSICIAN REAL. SEBASTIEN ROSS NOTIFIED. PT CAN DISCHARGE TO INPATIENT REHAB ONCE RENAL ULTRASOUND IS COMPLETED. [facility] INPATIENT REHAB TO CONTACT [facility] 2 NURSE WITH ROOM NUMBER WHEN READY TO ACCEPT PT AND NURSE REPORT. Prashant Walker, CASE MANAGEMENT DCP- Discharge Planning Updated by [id number]: Mis Desouza on 07/29/19 1:[address] Patient Name: TIM GARCIA Admission Status: ER Accout number: [id number] Admission Date: 07-28-2019 : 1950 Admission Diagnosis: Attending: CASANDRA GOODMAN Current LOS: 1 Anticipated DC Date: Planned Disposition: Inpatient Rehab Primary Insurance: [facility] MEDICARE SOLUTIONS Discharge Planning Comments: CM met with patient to complete initial dc planning assessment. CM educated patient on the CM role and verbal consent given by patient to complete assessment. Patient lives at home alone, States her son lives on the same property. CM discussed availability of home health, rehab services, and medical equipment. Patient states she needs to get stronger and would like a referral to inpatient rehab at [facility]. I informed her that her insurance would need to authorize her to go first. She states her second choice is [facility]. I asked her if she would consider SNF if they did not authorize inpatient rehab and she states "Let's cross that bridge later." CM will continue to follow and will assist as needed with dc plans/needs. Senior Ecologist: Mis Desouza DCPIA - Discharge Planning Initial Assessment Updated by [id number]: iMs Desouza on 07/29/19 2:50 pm * Is the patient Alert and Oriented? Yes * How many steps to enter\\exit or inside your home? 5/0 * PCP Dr. Deal * Preadmission Environment Home Alone * ADLs Partial Dependent * Partial ADLs (Assistance needed) Ambulation * Equipment Bedside Commode Nebulizer Other Oxygen Shower Chair Walker * Other Equipment Portable oxygen * List name and contact numbers for known caregivers / representatives who currently or will assist patient after discharge: Hosea Arshad - son - [phone] (message phone) * Verbal permission to speak to the caregivers and representatives has been obtained from the patient. Yes * Community resources currently utilized Home Health * Please name any agencies selected above. [facility] * Additional services required to return to the preadmission environment? No * Can the patient safely return to the preadmission environment? Yes * Has this patient been hospitalized within the prior 30 days at any hospital? No Coverage Notice Reviewer: [id number] - Mis Desouza Notice Issued Date-Time: 07/29/2019 14:56 Notice Type: Patient Choice Letter Notice Delivered To: Patient Relationship to Patient: Self Service Delivery Management Consultant Name: Delivery Method: HAND - Hand Delivered Kinza Days: Prior Verbal Notification: Recipient Understood Notice: Yes Recipient Signature: Yes Med Rec Note Co-signed by Attending: Coverage Notice Comment: EMILIA for 1)[facility] inpatient rehab 2) [facility] Reviewer: [id number] - Prashant Walker Notice Issued Date-Time: 07/31/2019 14:15 Notice Type: IM Discharge Notice Notice Delivered To: Patient Relationship to Patient: Service Delivery Management Consultant Name: Delivery Method: HAND - Hand Delivered Kinza Days: Prior Verbal Notification: Recipient Understood Notice: Yes Recipient Signature: Yes Med Rec Note Co-signed by Attending: Coverage Notice Comment: Last DP export: 07/31/19 1:59 pm Patient Name: TIM GARCIA Page [phone] at 1508 All edits/amendments must be made on the electronic document DICTATION DATE: 07/31/19 1508 GUIDE FOREIGN TOUR: YOVANA 07/31/19 1508 RPT#: [id number] DC DATE: STATUS: ADM IN [facility] [address] [place] [address] END OF REPORT
--- NOTE | 2019-07-31 15:31 | MORECARE ---
CASE MANAGEMENT DISCHARGE SUMMARY PATIENT: TIM GARCIA UNIT: [id number] ADM DATE: 07/28/19 AGE: 69 : 52 SEX: F ROOM/BED: D.6821 AUTHOR: CARLOS ENRIQUE,DOC PHYSICIAN: REFERRING PHYSICIAN: MARLENI GOODMAN MD DATE OF SERVICE: 07/31/19 Discharge Plan Patient Name: TIM GARCIA [facility] [facility] 1950 Planned Disposition: Inpatient Rehab Anticipated Discharge Date: 07/31/19 Discharge Date: Expected LOS: 3 Initial Reviewer: [id number] Initial Review Date: 07/29/2019 Generated: 07/31/19 4:30 pm Comments DCP- Discharge Planning Updated by [id number]: Prashant Sampson on 07/31/19 2:[address] Patient Name: TIM GARCIA Encounter No: [id number] : 1950 Primary Insurance: [facility] MEDICARE SOLUTIONS Anticipated DC Date: 07-31-2019 Planned Disposition: Inpatient Rehab External Planned Provider: [facility] INPATIENT REHAB DCP follow-up note: CM SPOKE TO [facility] OF INPATIENT REHAB, THEY PLAN TO ACCEPT PT TODAY FOR REHAB AFTER PT'S RENAL ULTRASOUND; THEY HAVE RECEIVED INSURANCE AUTHORIZATION. PT NOTIFIED, IN AGREEMENT WITH DISCHARGE TO INPATIENT REHAB. PT STATES SHE IS NOT READY TO DISCHARGE HOME DUE TO HAVING BREATHING TROUBLE BUT IS NOT HAPPY WITH HER CARE. CM EXPLAINED INPATIENT REHAB AND SERVICES IN REHAB. PT STATES SHE WILL GO AND TRY IT OUT. PT'S SON CALLED PT IN ROOM, PT ASKED CM TO SPEAK TO HER SON. SON INFORMED CM THAT HE WAS THINKING OF COMING TO TAKE PT HOME, CM EXPLAINED REHAB APPROVAL BY INSURANCE AND THAT REHAB WILL TAKE PT TODAY. PT'S SON SEEMED TO ALSO BE IN AGREEMENT AND STATES IT HIS MOTHERS CHOICE. CM SPOKE TO PT WHO IS IN AGREEMENT WITH REHAB. PT ASKED THAT THE SPEECH AND LANGUAGE CLINICIAN NOT GIVE HER ANOTHER MED NEB TREATMENT NOW BECAUSE IT IS WEARING HER OUT. CM PROVIDED PT WITH FIRE SAFETY INSPECTOR NUMBER TO CALL IF HER CARE WAS BAD, PT STATES THAT HER NURSE MANDI IS CARRYING THE WHOLE UNIT. CM ALSO ADVISED THAT CM WILL HAVE UNIT CERTIFIED REGISTERED LOCKSMITH SEE HER REGARDING HER CARE COMPLAINTS. CM NOTIFIED UNIT NURSE CASE MANAGER SPECIALIST REAL. SEBASTIEN ROSS NOTIFIED. PT CAN DISCHARGE TO INPATIENT REHAB ONCE RENAL ULTRASOUND IS COMPLETED. [facility] INPATIENT REHAB TO CONTACT MED 2 NURSE WITH ROOM NUMBER WHEN READY TO ACCEPT PT AND NURSE REPORT. Prashant Sampson, CASE MANAGEMENT Appended by Prashant Sampson on 07/31/2019 15:20 CLEARING HOUSE CLERK: CM RECEIVED MESSAGE FROM SEBASTIEN ROSS, PT IS NOT STABLE FOR DISCHARGE TO INPATIENT REHAB AT THIS TIME. CM NOTIFIED CLARK OF [facility] INPATIENT REHAB. PRASHANT SAMPSON, CASE MANAGEMENT DCP- Discharge Planning Updated by [id number]: Mis Desouza on 07/29/19 1:[address] Patient Name: TIM GARCIA Admission Status: ER Accout number: [id number] Admission Date: 07-28-2019 : 1950 Admission Diagnosis: Attending: CASANDRA GOODMAN Current LOS: 1 Anticipated DC Date: Planned Disposition: Inpatient Rehab Primary Insurance: [facility] MEDICARE SOLUTIONS Discharge Planning Comments: CM met with patient to complete initial dc planning assessment. CM educated patient on the CM role and verbal consent given by patient to complete assessment. Patient lives at home alone, States her son lives on the same property. CM discussed availability of home health, rehab services, and medical equipment. Patient states she needs to get stronger and would like a referral to inpatient rehab at [facility]. I informed her that her insurance would need to authorize her to go first. She states her second choice is [facility]. I asked her if she would consider SNF if they did not authorize inpatient rehab and she states "Let's cross that bridge later." CM will continue to follow and will assist as needed with dc plans/needs. Park Ranger: Mis Desouza DCPIA - Discharge Planning Initial Assessment Updated by [id number]: Mis Desouza on 07/29/19 2:50 pm * Is the patient Alert and Oriented? Yes * How many steps to enter\\exit or inside your home? 5/0 * PCP Dr. Deal * Preadmission Environment Home Alone * ADLs Partial Dependent * Partial ADLs (Assistance needed) Ambulation * Equipment Bedside Commode Nebulizer Other Oxygen Shower Chair Walker * Other Equipment Portable oxygen * List name and contact numbers for known caregivers / representatives who currently or will assist patient after discharge: Cherossy Arshad - son - [phone] (message phone) * Verbal permission to speak to the caregivers and representatives has been obtained from the patient. Yes * Community resources currently utilized Home Health * Please name any agencies selected above. [facility] * Additional services required to return to the preadmission environment? No * Can the patient safely return to the preadmission environment? Yes * Has this patient been hospitalized within the prior 30 days at any hospital? No Coverage Notice Reviewer: [id number] Naty Desouza Notice Issued Date-Time: 07/29/2019 14:56 Notice Type: Patient Choice Letter Notice Delivered To: Patient Relationship to Patient: Self Cash Specialist Name: Delivery Method: HAND - Hand Delivered Kinza Days: Prior Verbal Notification: Recipient Understood Notice: Yes Recipient Signature: Yes Med Rec Note Co-signed by Attending: Coverage Notice Comment: EMILIA for 1)[facility] inpatient rehab 2) [facility] Reviewer: [id number] - Prashant Sampson Notice Issued Date-Time: 07/31/2019 14:15 Notice Type: IM Discharge Notice Notice Delivered To: Patient Relationship to Patient: Cash Specialist Name: Delivery Method: HAND - Hand Delivered Kinza Days: Prior Verbal Notification: Recipient Understood Notice: Yes Recipient Signature: Yes Med Rec Note Co-signed by Attending: Coverage Notice Comment: Last DP export: 07/31/19 2:08 pm Patient Name: TIM GARCIA Page [phone] at 1531 All edits/amendments must be made on the electronic document DICTATION DATE: 07/31/19 1530 WET END HELPER: YOVANA 07/31/19 1530 RPT#: [id number] DC DATE: STATUS: ADM IN [facility] [address] [place] [address] END OF REPORT
--- NOTE | 2019-07-31 16:30 | NUR ---
DR LOWE IN ROOM. NEW ORDERS RECEIVED. PATIENT SITTING UP IN BS CHAIR. PATIENT IS STABLE AND VSS. PATIENT DENIES ANY NEEDS OR PAIN. WILL CONTINUE TO MONITOR. SR UP X 2 BED IN LOW POSITION AND CALL LIGHT IN REACH.
--- NOTE | 2019-07-31 16:53 | NUR ---
OT NOTE: PT COMPLETED SITTING BALANCE WITH SBA. PT STATED IT IS HARD TO BREATHE . NURSING NOTIFIED. O2 STATS WERE CHECKED. PT SAID IT IS DIFFICULT TO BREATHE IN BED. PT COMPLETED FACE AND HAND HYGIENE WITH SET UP. NURSING AWARE. [phone] THANK YOU,CHUCKY LAFLEUR
[2019-07-31 20:00] VITALS: BP 149/72
--- NOTE | 2019-07-31 21:44 | NUR ---
INITIAL ROUNDS COMPLETED AT 1915 HRS. PT DENIED ANY DISCOMFORT. ASSESSMENT COMPLETED AT 2010 HRS, VS. SR PER CM HR 90. ALERT AND ORIENTED TO PERSON, PLACE AND TIME. TUBBS. L CHEST INFUSAPORT SL. O2 4LNC. LUNGS DIMINISHED IN BASES BILAT. 1999 FSBS 157. 8 UNITS HUMALOG GIVEN SUB-Q TO UPPER R ARM. ORNAGE SHERBERT GIVEN PER REQUEST. PM MEDS GIVEN. TYLENOL 650MG PO GIVEN FOR C/O PARKER. 24HR URINE IN PROGRESS. SR UP X2, CALL LIGHT WITHIN REACH.
[2019-08-01] VITALS: BP 148/78
--- NOTE | 2019-08-01 00:16 | NUR ---
FSBS 247. 12 UNITS HUMALOG GIVEN SUB-Q TO UPPER R ARM PER S/S. PT DENIES ANY DISCOMFORT OR NEEDS AT THIS TIME. SR UP X2, CALL LIGHT WITHN REACH.
--- NOTE | 2019-08-01 02:10 | NUR ---
PT AWAKE; DEIES ANY DISCOMFORT. SR UP X2, CALL LIGHT WITHIN REACH.
[2019-08-01 04:00] VITALS: BP 148/79
--- NOTE | 2019-08-01 04:02 | NUR ---
PT RESTING WITH EYES CLOSED. RESP EVEN AND REGULAR. SR UP X2, CALL LIGHT WITHIN REACH.
--- NOTE | 2019-08-01 04:29 | NUR ---
GFSBS 71. NO COVERAGE NEEDED. PT DECLINED OFFER FOR JUICE OR A SNACK.
[2019-08-01 05:53] LABS: BASOPHILS 0 % (0-2); EOSINOPHILS 0.1 % (0-7); HEMATOCRIT 31.6 % (36.0-48.0); HEMOGLOBIN 9.7 g/dL (12-16); IMMATURE GRANULOCYTES 0.8 % (0-5); MCHC 30.7 g/dL (31.0-37.0); MONOCYTES 9.5 % (2-11); NEUTROPHILS 81.6 % (40-80); PLATELET COUNT 234 10x3/uL (130-400); RBC 3.59 10x6/uL (4.00-5.40); RDW 16.9 % (11.5-14.5); WBC 13.8 10x3/uL (4.8-10.8)
--- NOTE | 2019-08-01 05:57 | NUR ---
VSS THROUGHOUT NIGHT. SR WITH PVC'S PER CM. PT STATED TYLENOL ALLEVIATED HER PARKER. NEEDS MET; WILL CONTINUE TO MONITOR.
[2019-08-01 06:12] LABS: ANION GAP 6.5 mmol/L (8-16); CALCIUM 8.2 mg/dL (8.5-10.1); CREATININE - SERUM 1.9 mg/dL (0.6-1.3); VANCOMYCIN - RANDOM 15.6 ug/mL (10.0-20.0)
[2019-08-01 06:13] LABS: POTASSIUM - SERUM 3.5 mmol/L (3.5-5.1)
--- NOTE | 2019-08-01 06:23 | NUR ---
AM FSBS 55. 1 TUBE INSTA GLUCOSE GIVEN TO PT. PT SWALLOWED WITHOUT DIFFICULTY. AM POTASSIUM 3.5. KCL 40MEQ PO GIVEN PER PROTOCOL.
[2019-08-01 06:44] LABS: COMPLEMENT C4 17.8 mg/dL (17.4-52.2)
[2019-08-01 06:56] LABS: ERYTHROCYTE SEDIMENTATION RATE 18 mm/hr (0-30)
[2019-08-01 09:10] VITALS: BP 149/69
--- NOTE | 2019-08-01 11:00 | NUR ---
INSERTED 16 FR CALDERON CATHETER USING STERILE TECHNIQUE INSTILLED 10 CC STERILE FLUID IN BULB PT TOLERATED WELL 450 CC CLEAR BHAVNA URINE UPON RETURN PT TOLERATED WELL
[2019-08-01 11:53] LABS: CREATININE - URINE 47.9 mg/dL (30-125); PRO/CRE RATIO URINE 4.3 mg/g; PROTEIN - URINE 203.9 mg/dL (0.0-11.9)
[2019-08-01 16:00] VITALS: BP 188/102
--- NOTE | 2019-08-01 17:00 | NUR ---
16 FR CALDERON CATHETER DCD PER ORDER PT TOLERATED WELL
[2019-08-01 20:00] VITALS: BP 184/99
--- NOTE | 2019-08-01 21:46 | NUR ---
INITIAL ROUNDS COMPLETED AT 1915 HRS. PT DENIED ANY DISCOMFORT. ASSESSMENT COMPLETED AT 2015 HRS. VSS. SR WITH PVC'S PER CM HR 77. ALERT AND ORIENTED TO PERSON, PLACE AND TIME. TUBBS. SCATTERED RHONCHI AND RALES NOTED IN UPPER LOBES, DIMINISHED IN LOWER LOBES. L CHEST INFUSAPORT SL. SCHEDULED FSBS 166. 8 UNITS HUMALOG GIVEN SUB-Q TO UPPER R ARM. PM MEDS GIVEN. PT CURRENTLY WATCHING TV. SR UP X2, CALL LIGHT WITHIN REACH.
--- NOTE | 2019-08-01 23:13 | NUR ---
ASSISTED PT TO BR. VOIDED 500CC OF YELLOW URINE. ASSISTED BACK TO BED. SR UP X2,CALL LIGHT WITHIN REACH.
[2019-08-02] VITALS (15 sets, daily range): BP systolic 106–199; BP diastolic 67–125
--- NOTE | 2019-08-02 00:11 | NUR ---
FSBS 61. APPLE JUICE WITH 2 PKTS SUGAR, CHOCOLATE PUDDING AND PEANUTBUTTER AND CRACKERS GIVEN. WILL CONTINUE TO MONITOR.
--- NOTE | 2019-08-02 00:29 | NUR ---
BP 189/115. RECHECKED WITH MANUAL CUFF WITH 200/104 THE RESULTS. PT STATES SHE TAKES CLONIDINE AT HOME FOR THIS . [facility] P[facility]ED.
--- NOTE | 2019-08-02 00:48 | NUR ---
[facility] REPAGED.
--- NOTE | 2019-08-02 01:16 | NUR ---
BLOOD SUGAR RECHECKED AT 0050 HRS WITH 113 RESULT.
--- NOTE | 2019-08-02 01:27 | NUR ---
[facility] REPAGED.
--- NOTE | 2019-08-02 03:00 | NUR ---
RENAL SEVICES PAGED AT 0300 DAYLIGHT SAVINGS TIME.
--- NOTE | 2019-08-02 04:55 | NUR ---
BP RECHECKED AT 0330. BP 164/94. PO XANAX GIVEN PER REQUEST. PT CURRENTLY RESTING WITH EYES CLOSED. RESP EVEN AND REGULAR. SR UP X2, CALL LIGHT WITHIN REACH.
--- NOTE | 2019-08-02 05:12 | NUR ---
[facility] CALLED BACK. INFORMED ABOUT PT'S ELEVATED BP DURING SHIFT. INFORMED OF PT'S HOME MEDS. NEW ORDER RECEIVED AND NOTED.
[2019-08-02 05:46] LABS: BASOPHILS 0.1 % (0-2); EOSINOPHILS 0.2 % (0-7); HEMATOCRIT 31.5 % (36.0-48.0); HEMOGLOBIN 9.9 g/dL (12-16); IMMATURE GRANULOCYTES 1.4 % (0-5); LYMPHOCYTES 5.6 % (15-50); MCHC 31.4 g/dL (31.0-37.0); MCV 89.2 fL (80.0-100.0); MEAN PLATELET VOLUME 10.3 fL (7.4-10.4); MONOCYTES 10.3 % (2-11); NEUTROPHILS 82.4 % (40-80); PLATELET COUNT 228 10x3/uL (130-400); RBC 3.53 10x6/uL (4.00-5.40); RDW 17.2 % (11.5-14.5); WBC 11.3 10x3/uL (4.8-10.8)
--- NOTE | 2019-08-02 05:53 | NUR ---
TYLENOL 650MG PO GIVEN FOR C/O PARKER. PT STATES SHE FEELS BETTER THIS AM. NEEDS MET; WILL CONTINUE TO MONITOR.
[2019-08-02 05:54] LABS: ANION GAP 9.9 mmol/L (8-16); CALCIUM 8.1 mg/dL (8.5-10.1); CARBON DIOXIDE 31.6 mmol/L (21.0-32.0); CREATININE - SERUM 1.7 mg/dL (0.6-1.3); POTASSIUM - SERUM 4.5 mmol/L (3.5-5.1)
--- NOTE | 2019-08-02 13:32 | NUR ---
1300 PT RECIEVED IN THE ICU POST RR FROM FLOOR.. ARRIVED ON BIPAP O2 FIO2 40%..PT IS LETHARGIC IN HER RESPONSESNODDING YES AND NO .. RESPIRATIONS ARE 33AND O2 SAT IS 95%.. EART RATE IS 73 SR WITH AN ELEVATED ST SEGMENT ON HEART MONITOR.. THERE IS AN INFUSAPORT ON THE LEFT CHEST WALL SALINE LOCKED.. NO SKIN ABNORMALITIES OR BREAKDOWN NOTED AND NO OBVIOUS INJURY FROM RR FALL.. THERE IS AN OLD LUMBAR SCAR FROM A PREVIOUS SURGERY OLD... 1325 LAB IN AND BLOOD DRAWN FROMINFUSAPORT BY NURSE..
--- NOTE | 2019-08-02 14:30 | NUR ---
CALDERON CATH INSERTED IN ORDER CALLER 16 FR. PATIENT TOLERATED WELL. IMMEDIATEL RETURN OF CLEAR PALE YELLOW URINE. PATIENT TRYING TO GET BIPAP OFF. REMINDED WHY SHE NEEDS IT.
--- NOTE | 2019-08-02 16:00 | NUR ---
BI PAP REMOVED PER RESP. THERAPY. ON 6 LITERS NC. TAKING PO FLUIDS WELL. PO MEDS TAKEN. PHONE AT BEDSIDE. HEAD OF BED ELEVATED 30 DEGREES. MONITOR SR.
--- NOTE | 2019-08-02 16:34 | NUR ---
apresoline given for bp of 162/102 given left infusaport flushed with 20 ml saline. dinner tray served and set up for patient.
--- NOTE | 2019-08-02 17:00 | NUR ---
DINNER TRAY SERVED ATE FEW BITES AND BECAME SHORT OF BREATH. HAD TO BE PLACED BACK ON BI PAP. DR. LOWE HERE. DOES NOT WANT HER OFF BI PAP FOR MORE THAN AN HOUR. STATES HE MAY HAVE TO BRONCH IN AM.
--- NOTE | 2019-08-02 18:47 | NUR ---
PATIENT RESTING ON BIPAP. CALDERON CATH PATENT. INFUSA PORT INTACT. LEFT SUBCLAVIAN. MONITOR SR. HEAD OF BED ELEVATED AT 30 DEGREES.
--- NOTE | 2019-08-02 19:15 | NUR ---
BEDSIDE SHIFT REPORT COMPLETED. INTRODUCED MYSELF TO PT PRIMARY RN FOR [facility] SHIFT. PT IS A&O SITTING UP IN BED RESTING QUIETLY WITH BIPAP @40% IN PLACE. PT DENIES ANY IMMEDIATE NEEDS AT THIS TIME. CL IN REACH, BED IN LOWEST, SIDE RAILS X2. WILL REVIEW CHART AND ORDERS AND CPOC.
--- NOTE | 2019-08-02 20:08 | NUR ---
PT C/O NOT BEING ABLE TO SLEEP AND ANXIETY REQUESTED AND PROVIDED WITH PRN XANAX. REMOVED BIPAP SO PT CAN TAKE NIGHTLY MEDICATIONS AND DRINK SOME WATER AND EAT BEDTIME SNACK. FSBS 263 PROVIDED PT WITH 16UNITS OF INSULIN PER SS. REPOSITIONED PT UP IN BED SO SHE CAN EAT SAFELY. PT SOUNDS GARGLY AND CONGESTED AND HAS WEAK EFFORT TO COUGH UP SPUTUM BUT SHE IS TRYING. NS @5L IN PLACE AND RR NONLABORED. WILL ALLOW HER TO FINISH HER NIGHTLY SNACK AND THEN PUT BACK ON BIPAP TO SLEEP. EXPLAINED TO PT AND SHE VERBALIZED UNDERSTANDING. NO IMMEDIATE NEEDS AT THIS TIME. WILL CTM.
--- NOTE | 2019-08-02 20:42 | NUR ---
PT BACK ON BIPAP @40% ORDERED. LOWERED HOB AND GOT PT COMFORTABLE READY TO TRY AND SLEEP. PT VOICED THANKS AND DENIES ANY CURRENT PAIN OR NEEDS. CL IN REACH, BED IN LOWEST, SIDE RAILS X2 AND CALDERON DRAINING TO GRAVITY OFF L.SIDE OF BED. WILL CTM.
--- NOTE | 2019-08-02 21:54 | NUR ---
PT TOOK OFF HER BIPAP. I ASKED HER WHY AND SHE SAID IT WAS TIGHT. THEN HER TELEPHONE RANG AND SHE IS TALKING TO FAMILY. WILL GIVE HER WATER AND PUT HER BACK ON BIPAP WHEN SHE FINISHES. NO IMMEDIATE NEEDS. WILL CTM.
[2019-08-03] VITALS (24 sets, daily range): BP systolic 122–190; BP diastolic 79–99
--- NOTE | 2019-08-03 00:35 | NUR ---
PT TAKING HER BIPAP OFF AND HAS 3 TIMES IN THE PAST [address] IT BACK AND REORIENT HER. SHE STATES IT IS BOTHERING HER BUT THEN ALLOWS ME TO APPLY IT BACK. WILL LEAVE IT ON AND CTM CLOSELY.
--- NOTE | 2019-08-03 01:11 | NUR ---
PT BECOMING ANXIOUS AND PULLING AT HER BIPAP REFUSING TO WEAR IT. PT REQUESTED A SLEEPING PILL AND STATES "JUST KNOCK ME OUT PLEASE" PROVIDED PT WITH PRN XANAX FOR ANXIETY AND SHE AGREED TO WEAR HER BIPAP AGAIN. WILL CTM.
[2019-08-03 03:06] LABS: IMMUNOGLOBULIN E 8 IU/mL (6-495)
--- NOTE | 2019-08-03 03:13 | NUR ---
PT CONSTANTLY PULLING HER BIPAP OFF AND IS VERY RESTLESS. TEACHING PROVIDED AND PT REORIENTS AND ALLOWS ME TO PUT IT BACK ON WITHOUT ANY REFUSAL HOWEVER SHE STILL TRIES TO TAKE IT OFF EVERY 10-15MINS. PT APPEARS VERY WEAK AND TIRED WILL CONTINUE WORKING WITH HER AND TRY TO GET HER TO JUST SLEEP AND LEAVE IT ALONE.
--- NOTE | 2019-08-03 04:11 | NUR ---
LAB DRAW COMPLETED VIA L.CHEST INFUSAPORT. WASTED AND FLUSHED PER PROTOCOL. INFUSAPORT BACK SL. EMPTIED CALDERON CATHETER OF 500CC CLEAR YELLOW URINE. BIPAP REINFORCED PT IS STILL PULLING AT IT. NO CURRENT NEEDS AT THIS TIME. WILL CTM.
[2019-08-03 04:23] LABS: BASOPHILS 0 % (0-2); EOSINOPHILS 0 % (0-7); HEMATOCRIT 32.6 % (36.0-48.0); HEMOGLOBIN 10.1 g/dL (12-16); IMMATURE GRANULOCYTES 1.5 % (0-5); LYMPHOCYTES 4.9 % (15-50); MCH 27.2 pg (26.0-34.0); MCV 87.9 fL (80.0-100.0); MEAN PLATELET VOLUME 10.2 fL (7.4-10.4); MONOCYTES 3.8 % (2-11); NEUTROPHILS 89.8 % (40-80); PLATELET COUNT 211 10x3/uL (130-400); RBC 3.71 10x6/uL (4.00-5.40); RDW 17.3 % (11.5-14.5); WBC 8.6 10x3/uL (4.8-10.8)
--- NOTE | 2019-08-03 04:42 | NUR ---
ABGS ARE COMPLETED. PT REFUSING TO WEAR HER BIPAP ANY LONGER. REMOVED IT AND NC @6L IN PLACE. REPOSITIONED PT UP IN BED FOR COMFORT. PTS COUGH SOUNDS VERY WET AND CONGESTED HOWEVER SHE IS STILL UNABLE TO COUGH UP ANY SPUTUM. PT RESTING IN BED AND DENIES ANY CURRENT PAIN OR NEEDS. PT REMAINS NPO UNTIL CLEARED BY PULMONOLOGY SHE MAY HAVE A BRONCHOSCOPY TODAY. PT VERBALIZED UNDERSTANDING. CL IN REACH, BED IN LOWEST, SIDE RAILS X2. WILL CPOC.
[2019-08-03 07:12] LABS: ANION GAP 12.7 mmol/L (8-16); CALCIUM 8.2 mg/dL (8.5-10.1); CARBON DIOXIDE 27.7 mmol/L (21.0-32.0); CREATININE - SERUM 1.7 mg/dL (0.6-1.3); POTASSIUM - SERUM 4.4 mmol/L (3.5-5.1)
--- NOTE | 2019-08-03 07:20 | NUR ---
REPORT RECEIVED. PT ALERT. PT HAS A PORT THAT IS ACCESSED. SHE HAS A CALDERON. LUNGS ARE COARSE. ON O2 AT 6L VIA HIGH FLOW NC. PT IS NPO FOR POSSIBLE BRONCH TODAY. WILL CONTINUE TO MONITOR.
--- NOTE | 2019-08-03 09:19 | NUR ---
Nutrition follow-up: Pt now in ICU s/p rapid response pt refusing to wear BIPAP Diet: Consistent CHO PO intake ~75% average of meals Pt is drinking Glucerna daily Wt: 120# RDN following.
--- NOTE | 2019-08-03 10:38 | NUR ---
PAGED DR MARCANO ABOUT BRONCH. WILL DO MODERATE SEDATION. CALLED IR NURSES. WILL SEDATE PT FOR BRONCH AT 1300.
[2019-08-03 12:08] LABS: ANA REFLEX - DIRECT Negative (Negative)
--- NOTE | 2019-08-03 12:51 | NUR ---
CALLED PHARMACY 2ND TIME FOR DIFLUCAN.
--- NOTE | 2019-08-03 15:00 | NUR ---
BRONCH DONE BY DR MARCANO.
--- NOTE | 2019-08-03 16:46 | NUR ---
BIPAP PUT ON PT.
--- NOTE | 2019-08-03 19:00 | NUR ---
SHIFT ASSESSMENT COMPLETED. PT CARE ASSUMED. MONITORS ON AND WORKING, VITALS STABLE, PT LYING IN BED, BIPAP ON, PT NEEDS REDIRECTING AND REMINDED TO NOT TAKE BIPAP OFF. CALL LIGHT WITHIN REACH, WILL CONTINUE TO OBSERVE.
[2019-08-03 20:07] LABS: SPE - A/G RATIO 1.1 (0.7-1.7); SPE - ALBUMIN 2.6 g/dL (2.9-4.4); SPE - ALPHA-1 GLOBULIN 0.3 g/dL (0.0-0.4); SPE - ALPHA-2 GLOBULIN 0.7 g/dL (0.4-1.0); SPE - BETA GLOBULIN 0.8 g/dL (0.7-1.3); SPE - GAMMA GLOBULIN 0.5 g/dL (0.4-1.8); SPE - M-SPIKE Not Observed g/dL (Not Observed); SPE - TOTAL PROTEIN 4.9 g/dL (6.0-8.5)
--- NOTE | 2019-08-03 23:00 | NUR ---
PT TURNED AND REPOSITIONED FOR COMFORT, ELEVATED BP, PRN MEDS GIVEN PER ORDERS, PT CONTINUES TO TAKE BIPAP OFF, SEE FLOW SHEET FOR FURTHER DETAILS. WILL CONTINUE TO OBSERVE.
[2019-08-04] VITALS (24 sets, daily range): BP systolic 121–175; BP diastolic 71–146
--- NOTE | 2019-08-04 01:00 | NUR ---
NO CHANGES, CALL LIGHT WITHIN REACH, WILL CONTINUE TO OBSERVE.
--- NOTE | 2019-08-04 03:00 | NUR ---
PT BP REMAINS ELEVATED MOST OF THIS SHIFT DESPITE PRN MEDS GIVEN, PT CURRENTLY RESTING CALMLY, NOT ATTEMPTING TO PULL BIPAP OFF, MONITORS ON AND WORKING, VITALS STABLE, CALL LIGHT WITHIN REACH, SEE FLOW SHEET FOR FURTHER DETAILS. WILL CONTINUE TO OBSERVE.
--- NOTE | 2019-08-04 05:00 | NUR ---
PT RESTING, MONITORS ON AND WORKING, VITALS STABLE, CALL LIGHT WITHIN REACH, WILL CONTINUE TO OBSERVE.
--- NOTE | 2019-08-04 07:00 | NUR ---
RECEIVED BEDSIDE REPORT ON PATIENT AND ASSUMED CARE. PATIENT RESTING QUIETLY IN BED, EYES CLOSED, EASILY AROUSED BY VOICE, ALERT BUT WITH SOME CONFUSION, ANNOT RECALL WHERE SHE IS AT OR THE SITUATION, REORIENTED TO BEING IN ICU AT [facility] AND REASON FOR HOSPITALIZAION. CAN STATE IT IS 2019, JERROD IS PRESIDENT AND THAT SHE IS IN [place]. ON BIPAP AT 60%, 14/, WITH SPO2 - 96%. CM - NSR RATE OF 78, BBS - COARSE CRACKLES AND DIMINISHED IN THE BASES. CALDERON CATH IN PLACE WITH CLEAR YELLOW UOP NOTED. LEFT IMPLANTED PORT ACCESSED, DRESSING C/D/I, NSL, FLUSHES EASILY. HEAD TO TOE ASSESSMENT COMPLETED.
[2019-08-04 07:36] LABS: ALBUMIN 2.6 g/dL (3.4-5.0); ANION GAP 16.2 mmol/L (8-16); BILIRUBIN - TOTAL 0.46 mg/dL (0.2-1.3); CALCIUM 8.5 mg/dL (8.5-10.1); CREATININE - SERUM 1.5 mg/dL (0.6-1.3); POTASSIUM - SERUM 4.2 mmol/L (3.5-5.1); PROTEIN - SERUM 5.5 g/dL (6.4-8.2)
--- NOTE | 2019-08-04 08:00 | NUR ---
FSBS 220 MG/DL, INSULIN GIVEN PER MAR AND MORNING MEDS GIVEN. PATIENT ON 5 LPM VIA NC. VSS.
[2019-08-04 08:14] LABS: BASOPHILS 0.1 % (0-2); EOSINOPHILS 0 % (0-7); HEMATOCRIT 33.9 % (36.0-48.0); HEMOGLOBIN 10.4 g/dL (12-16); IMMATURE GRANULOCYTES 1.6 % (0-5); LYMPHOCYTES 4.5 % (15-50); MCH 26.9 pg (26.0-34.0); MCHC 30.7 g/dL (31.0-37.0); MCV 87.8 fL (80.0-100.0); MEAN PLATELET VOLUME 10.1 fL (7.4-10.4); MONOCYTES 4.5 % (2-11); NEUTROPHILS 89.3 % (40-80); PLATELET COUNT 224 10x3/uL (130-400); RBC 3.86 10x6/uL (4.00-5.40); RDW 17.7 % (11.5-14.5)
[2019-08-04 08:19] LABS: WBC 12.1 10x3/uL (4.8-10.8)
--- NOTE | 2019-08-04 09:27 | NUR ---
DR. MARCANO AT ROOM UPDATED AND EXAMINES PATIENT. OK TO GET PATIENT UP TO BEDSIDE CHAIR.
--- NOTE | 2019-08-04 10:37 | NUR ---
PATEINT BECAME SOB WHILE SITTING UP IN CHAIR, RR - 46, SPO2 - 85%, PLACED BACK ON BIPAP, TRIPOD POSITION IN CHAIR, SPO2 - 97% RR - 25. PATIENT TAKING MASK OFF REPEATEDLY.
--- NOTE | 2019-08-04 11:00 | NUR ---
REASSESSMENT COMPLETED. PATIENT ON BIPAP, EASE OF BREATHING IMPROVED, RR - 28, SPO2 97%. COARSE BBS NOTED.
--- NOTE | 2019-08-04 11:38 | NUR ---
PATIENT TAKEN OFF BIPAP FOR LUNCH, ON 5 LPM VIA NC WITH SPO2 98%, RR - 28.
--- NOTE | 2019-08-04 12:12 | NUR ---
PATIENT BACK TO BED PER REQUEST. VSS.
--- NOTE | 2019-08-04 12:33 | NUR ---
PATIENT PLACED BACK ON BIPAP BY RT, DESAT TO 79% ON NC AT [address] IVEY TALKED AT LENGTH TO PATIENTS SON REGARDING PATIENTS CONDITION. SON REQUESTS TRANSFER TO [facility]. DR. BAEZ TALKS TO CASE MANAGEMENT TO REQUEST TRANSFER PER FAMILY REQUEST.
--- NOTE | 2019-08-04 13:12 | NUR ---
PATIENT TAKING BIPAP OFF, REORIENTED, SPO2 - 84% QUICKLY ONCE SHE REMOVED BIPAP, PLACED BACK ON RECOVERED TO 94%.
--- NOTE | 2019-08-04 13:13 | MORECARE ---
CASE MANAGEMENT DISCHARGE SUMMARY PATIENT: TIM GARCIA UNIT: [id number] ADM DATE: 07/28/19 AGE: 69 : 54 SEX: F ROOM/BED: D.2307 AUTHOR: CARLOS ENRIQUE,DOC PHYSICIAN: REFERRING PHYSICIAN: MARLENI GOODMAN MD DATE OF SERVICE: 08/04/19 Discharge Plan Patient Name: TIM GARCIA [facility] [facility] 1950 Planned Disposition: Inpatient Rehab Anticipated Discharge Date: 07/31/19 Discharge Date: Expected LOS: 3 Initial Reviewer: [id number] Initial Review Date: 07/29/2019 Generated: 08/04/19 2:13 pm DCP- Discharge Planning Updated by [id number]: Prashant Sampson on 07/31/19 1:[address] Patient Name: TIM GARCIA Encounter No: [id number] : 1950 Primary Insurance: [facility] MEDIC[facility] SOLUTIONS Anticipated DC Date: 07-31-2019 Planned Disposition: Inpatient Rehab External Planned Provider: [facility] DCP follow-up note: CM SPOKE TO CLARK OF INPATIENT REHAB, THEY PLAN TO ACCEPT PT TODAY FOR REHAB AFTER PT'S RENAL ULTRASOUND; THEY HAVE RECEIVED INSURANCE AUTHORIZATION. PT NOTIFIED, IN AGREEMENT WITH DISCHARGE TO INPATIENT REHAB. PT STATES SHE IS NOT READY TO DISCHARGE HOME DUE TO HAVING BREATHING TROUBLE BUT IS NOT HAPPY WITH HER CARE. CM EXPLAINED INPATIENT REHAB AND SERVICES IN REHAB. PT STATES SHE WILL GO AND TRY IT OUT. PT'S SON CALLED PT IN ROOM, PT ASKED CM TO SPEAK TO HER SON. SON INFORMED CM THAT HE WAS THINKING OF COMING TO TAKE PT HOME, CM EXPLAINED REHAB APPROVAL BY INSURANCE AND THAT REHAB WILL TAKE PT TODAY. PT'S SON SEEMED TO ALSO BE IN AGREEMENT AND STATES IT HIS MOTHERS CHOICE. CM SPOKE TO PT WHO IS IN AGREEMENT WITH REHAB. PT ASKED THAT THE MAKE UP OPERATOR NOT GIVE HER ANOTHER MED NEB TREATMENT NOW BECAUSE IT IS WEARING HER OUT. CM PROVIDED PT WITH BLENDER CONVEYOR OPERATOR NUMBER TO CALL IF HER CARE WAS BAD, PT STATES THAT HER NURSE MANDI IS CARRYING THE WHOLE UNIT. CM ALSO ADVISED THAT CM WILL HAVE UNIT IC DESIGNER CUSTOM SEE HER REGARDING HER CARE COMPLAINTS. CM NOTIFIED UNIT NURSE HAIR WEAVER REAL. SEBASTIEN ROSS NOTIFIED. PT CAN DISCHARGE TO INPATIENT REHAB ONCE RENAL ULTRASOUND IS COMPLETED. [facility] TO CONTACT MED 2 NURSE WITH ROOM NUMBER WHEN READY TO ACCEPT PT AND NURSE REPORT. Prashant Sampson, CASE MANAGEMENT Appended by Prashant Sampson on 07/31/2019 15:20 SPEECH WRITER: CM RECEIVED MESSAGE FROM SEBASTIEN ROSS, PT IS NOT STABLE FOR DISCHARGE TO INPATIENT REHAB AT THIS TIME. CM NOTIFIED CLARK OF [facility]. PRASHANT SAMPSON, CASE MANAGEMENT DCP- Discharge Planning Updated by [id number]: Mis Desouza on 07/29/19 12:[address] Patient Name: TIM GARCIA Admission Status: ER Accout number: [id number] Admission Date: 07-28-2019 : 1950 Admission Diagnosis: Attending: CASANDRA GOODMAN Current LOS: 1 Anticipated DC Date: Planned Disposition: Inpatient Rehab Primary Insurance: [facility] MEDICARE SOLUTIONS Discharge Planning Comments: CM met with patient to complete initial dc planning assessment. CM educated patient on the CM role and verbal consent given by patient to complete assessment. Patient lives at home alone, States her son lives on the same property. CM discussed availability of home health, rehab services, and medical equipment. Patient states she needs to get stronger and would like a referral to inpatient rehab at [facility]. I informed her that her insurance would need to authorize her to go first. She states her second choice is [facility]. I asked her if she would consider SNF if they did not authorize inpatient rehab and she states "Let's cross that bridge later." CM will continue to follow and will assist as needed with dc plans/needs. Travel Consultant: Mis Desouza DCPIA - Discharge Planning Initial Assessment Updated by [id number]: Mis Desouza on 07/29/19 2:50 pm * Is the patient Alert and Oriented? Yes * How many steps to enter\\exit or inside your home? 5/0 * PCP Dr. Deal * Preadmission Environment Home Alone * ADLs Partial Dependent * Partial ADLs (Assistance needed) Ambulation * Equipment Bedside Commode Nebulizer Other Oxygen Shower Chair Walker * Other Equipment Portable oxygen * List name and contact numbers for known caregivers / representatives who currently or will assist patient after discharge: Hosea Arshad - son - [phone] (message phone) * Verbal permission to speak to the caregivers and representatives has been obtained from the patient. Yes * Community resources currently utilized Home Health * Please name any agencies selected above. [facility] * Additional services required to return to the preadmission environment? No * Can the patient safely return to the preadmission environment? Yes * Has this patient been hospitalized within the prior 30 days at any hospital? No External Providers External Provider: [facility] Next Contact Date: Service Request Date: Service Type: Resolution: Reviewer: Comments: Coverage Notice Reviewer: [id number] Naty Desouza Notice Issued Date-Time: 07/29/2019 14:56 Notice Type: Patient Choice Letter Notice Delivered To: Patient Relationship to Patient: Self Perforator Operator Oil Well Name: Delivery Method: HAND - Hand Delivered Kinza Days: Prior Verbal Notification: Recipient Understood Notice: Yes Recipient Signature: Yes Med Rec Note Co-signed by Attending: Coverage Notice Comment: EMILIA for 1)[facility] inpatient rehab 2) [facility] Reviewer: [id number] Naty Sampson Notice Issued Date-Time: 07/31/2019 14:15 Notice Type: IM Discharge Notice Notice Delivered To: Patient Relationship to Patient: Perforator Operator Oil Well Name: Delivery Method: HAND - Hand Delivered Kinza Days: Prior Verbal Notification: Recipient Understood Notice: Yes Recipient Signature: Yes Med Rec Note Co-signed by Attending: Coverage Notice Comment: Last DP export: 07/31/19 1:31 pm Patient Name: TIM GARCIA Page [id number] at 1313 All edits/amendments must be made on the electronic document DICTATION DATE: 08/04/19 1313 STORE PROMOTER: YOVANA 08/04/19 1313 RPT#: [id number] DC DATE: STATUS: ADM IN [facility] [address] [facility] [place] [address] END OF REPORT
--- NOTE | 2019-08-04 13:30 | MORECARE ---
CASE MANAGEMENT DISCHARGE SUMMARY PATIENT: TIM GARCIA UNIT: [id number] ADM DATE: 07/28/19 AGE: 69 : 54 SEX: F ROOM/BED: D.2307 AUTHOR: CARLOS ENRIQUE,DOC PHYSICIAN: REFERRING PHYSICIAN: MARLENI GOODMAN MD DATE OF SERVICE: 08/04/19 Discharge Plan Patient Name: TIM GARCIA [facility] [facility] 1950 Planned Disposition: Inpatient Rehab Anticipated Discharge Date: 07/31/19 Discharge Date: Expected LOS: 3 Initial Reviewer: [id number] Initial Review Date: 07/29/2019 Generated: 08/04/19 2:30 pm Comments DCP- Discharge Planning Updated by [id number]: Trista Francois on 08/04/19 12:[address] CM received a request from Dr. Salmon to contact transfer center because patient's son is demanding patient to be transferred. Patient is confused and unable tell CM if she would like to transfer. CM contacted transfer center and faxed records. Transfer center stated they would call back to Dr. Salmon once they have an accepting physician. CM will continue to follow and assist as needed with discharge planning/ needs. DCP- Discharge Planning Updated by [id number]: Prashant Sampson on 07/31/19 1:[address] Patient Name: ITM GARCIA Encounter No: [id number] : 1950 Primary Insurance: [facility] MEDICARE SOLUTIONS Anticipated DC Date: 07-31-2019 Planned Disposition: Inpatient Rehab External Planned Provider: [facility] DCP follow-up note: CM SPOKE TO [facility] OF INPATIENT REHAB, THEY PLAN TO ACCEPT PT TODAY FOR REHAB AFTER PT'S RENAL ULTRASOUND; THEY HAVE RECEIVED INSURANCE AUTHORIZATION. PT NOTIFIED, IN AGREEMENT WITH DISCHARGE TO INPATIENT REHAB. PT STATES SHE IS NOT READY TO DISCHARGE HOME DUE TO HAVING BREATHING TROUBLE BUT IS NOT HAPPY WITH HER CARE. CM EXPLAINED INPATIENT REHAB AND SERVICES IN REHAB. PT STATES SHE WILL GO AND TRY IT OUT. PT'S SON CALLED PT IN ROOM, PT ASKED CM TO SPEAK TO HER SON. SON INFORMED CM THAT HE WAS THINKING OF COMING TO TAKE PT HOME, CM EXPLAINED REHAB APPROVAL BY INSURANCE AND THAT REHAB WILL TAKE PT TODAY. PT'S SON SEEMED TO ALSO BE IN AGREEMENT AND STATES IT HIS MOTHERS CHOICE. CM SPOKE TO PT WHO IS IN AGREEMENT WITH REHAB. PT ASKED THAT THE PROCUREMENT CLERK NOT GIVE HER ANOTHER MED NEB TREATMENT NOW BECAUSE IT IS WEARING HER OUT. CM PROVIDED PT WITH DOCK ATTENDANT NUMBER TO CALL IF HER CARE WAS BAD, PT STATES THAT HER NURSE MANDI IS CARRYING THE WHOLE UNIT. CM ALSO ADVISED THAT CM WILL HAVE UNIT HAM SMOKER SEE HER REGARDING HER CARE COMPLAINTS. CM NOTIFIED UNIT NURSE MACHINE HEEL SEAT FITTER REAL. SEBASTIEN ROSS NOTIFIED. PT CAN DISCHARGE TO INPATIENT REHAB ONCE RENAL ULTRASOUND IS COMPLETED. [facility] IN[facility] TO CONTACT MED 2 NURSE WITH ROOM NUMBER WHEN READY TO ACCEPT PT AND NURSE REPORT. Prashant Sampson, CASE MANAGEMENT Appended by Prashant Sampson on 07/31/2019 15:20 BLUNGER: CM RECEIVED MESSAGE FROM SEBASTIEN ROSS, PT IS NOT STABLE FOR DISCHARGE TO INPATIENT REHAB AT THIS TIME. CM NOTIFIED CLARK OF [facility]. PRASHANT SAMPSON, CASE MANAGEMENT DCP- Discharge Planning Updated by [id number]: Mis Desouza on 07/29/19 12:[address] Patient Name: TIM GARCIA Admission Status: ER Accout number: [id number] Admission Date: 07-28-2019 : 1950 Admission Diagnosis: Attending: CASANDRA GOODMAN Current LOS: 1 Anticipated DC Date: Planned Disposition: Inpatient Rehab Primary Insurance: [facility] MEDICARE SOLUTIONS Discharge Planning Comments: CM met with patient to complete initial dc planning assessment. CM educated patient on the CM role and verbal consent given by patient to complete assessment. Patient lives at home alone, States her son lives on the same property. CM discussed availability of home health, rehab services, and medical equipment. Patient states she needs to get stronger and would like a referral to inpatient rehab at [facility]. I informed her that her insurance would need to authorize her to go first. She states her second choice is [facility]. I asked her if she would consider SNF if they did not authorize inpatient rehab and she states "Let's cross that bridge later." CM will continue to follow and will assist as needed with dc plans/needs. Vacuum Applicator Operator: Mis Desouza DCPIA - Discharge Planning Initial Assessment Updated by [id number]: Mis Desouza on 07/29/19 2:50 pm * Is the patient Alert and Oriented? Yes * How many steps to enter\\exit or inside your home? 5/0 * PCP Dr. Deal * Preadmission Environment Home Alone * ADLs Partial Dependent * Partial ADLs (Assistance needed) Ambulation * Equipment Bedside Commode Nebulizer Other Oxygen Shower Chair Walker * Other Equipment Portable oxygen * List name and contact numbers for known caregivers / representatives who currently or will assist patient after discharge: Hosea Arshad [facility] - [phone] (message phone) * Verbal permission to speak to the caregivers and representatives has been obtained from the patient. Yes * Community resources currently utilized Home Health * Please name any agencies selected above. [facility] * Additional services required to return to the preadmission environment? No * Can the patient safely return to the preadmission environment? Yes * Has this patient been hospitalized within the prior 30 days at any hospital? No Coverage Notice Reviewer: [id number] - Mis Desouza Notice Issued Date-Time: 07/29/2019 14:56 Notice Type: Patient Choice Letter Notice Delivered To: Patient Relationship to Patient: Self Supervisor Shipping Name: Delivery Method: HAND - Hand Delivered Kinza Days: Prior Verbal Notification: Recipient Understood Notice: Yes Recipient Signature: Yes Med Rec Note Co-signed by Attending: Coverage Notice Comment: EMILIA for 1)[facility] inpatient rehab 2) [facility] Reviewer: [id number] - Prashant Sampson Notice Issued Date-Time: 07/31/2019 14:15 Notice Type: IM Discharge Notice Notice Delivered To: Patient Relationship to Patient: Supervisor Shipping Name: Delivery Method: HAND - Hand Delivered Kinza Days: Prior Verbal Notification: Recipient Understood Notice: Yes Recipient Signature: Yes Med Rec Note Co-signed by Attending: Coverage Notice Comment: Last DP export: 08/04/19 12:13 p Patient Name: TIM GARCIA Page [id number] at 1330 All edits/amendments must be made on the electronic document DICTATION DATE: 08/04/19 1330 COMPLIANCE SPECIALIST: YOVANA 08/04/19 1330 RPT#: [id number] DC DATE: STATUS: ADM IN [facility] [address] [place] [address] END OF REPORT
--- NOTE | 2019-08-04 14:06 | NUR ---
PATIENT SLEEPING AND SPO2 - 81% ON 40% BIPAP 07/12, INCREASED TO 70% AND SPO2 INCREASED TO 86%, INCREASED TO 100% AND INCREASED SLOWLY TO 96%. PATIENT LETHARGIC BUT AROUSES, RT AT ROOM FOR ABG.
--- NOTE | 2019-08-04 14:19 | NUR ---
PATIENT SPO2 AT 100% ON 70% FIO2 DECREASED TO FIO2 OF 60%.
--- NOTE | 2019-08-04 14:23 | NUR ---
SPOKE TO THE NIECE (REAL) AND UPDATED ON PATIENT CONDITION AND SONS REQUEST TO TRANSFER TO [facility].
--- NOTE | 2019-08-04 14:46 | NUR ---
FIO2 DECREASED TO 50%, SPO2 - 100%.
--- NOTE | 2019-08-04 15:07 | NUR ---
REASSESSMENT COMPLETED. VSS. FIO2 DECREASED TO 40% SPO2 MAINTAINING AT 95%. PATIENT EASILY AROUSES, REMAINS CONFUSED BUT DRIFT BACKS TO SLEEP. PATIENTS NIECE (REAL) CALLED, STATES SHE HAS POWER OF NET DEVELOPER ARCHITECT FOR MEDICAL DECISIONS IF PATIENT IS NOT ABLE TO MAKE DECISIONS AND DOES NOT WANT PATIENT TRANSFERRED TO [facility]. STATES WILL BRING POA TO HOSPITAL AT 1600 VISITING TIME.
--- NOTE | 2019-08-04 15:25 | MORECARE ---
CASE MANAGEMENT DISCHARGE SUMMARY PATIENT: TIM GARCIA UNIT: [id number] ADM DATE: 07/28/19 AGE: 69 : 54 SEX: F ROOM/BED: D.2307 AUTHOR: CARLOS ENRIQUE,DOC PHYSICIAN: REFERRING PHYSICIAN: MARLENI GOODMAN MD DATE OF SERVICE: 08/04/19 Discharge Plan Patient Name: TIM [facility] [facility] 1950 Planned Disposition: Inpatient Rehab Anticipated Discharge Date: 07/31/19 Discharge Date: Expected LOS: 3 Initial Reviewer: [id number] Initial Review Date: 07/29/2019 Generated: 08/04/19 4:24 pm Comments DCP- Discharge Planning Updated by [email or web address]: Trista Francois on 08/04/19 2:[address] CM received a call back from transfer center she stated that [facility] - ICU and MED/SURG is at MAX capacity at this time. CM let charge nurse know status. CM will continue to follow and assist as needed with discharge planning / needs. DCP- Discharge Planning Updated by [id number]: Trista Francois on 08/04/19 12:[address] CM received a request from Dr. Salmon to contact transfer center because patient's son is demanding patient to be transferred. Patient is confused and unable tell CM if she would like to transfer. CM contacted transfer center and faxed records. Transfer center stated they would call back to Dr. Salmon once they have an accepting physician. CM will continue to follow and assist as needed with discharge planning/ needs. DCP- Discharge Planning Updated by [id number]: Haleigh Sampson on 07/31/19 1:[address] Patient Name: TIM GARCIA Encounter No: [id number] : 1950 Primary Insurance: [facility] MEDICARE SOLUTIONS Anticipated DC Date: 07-31-2019 Planned Disposition: Inpatient Rehab External Planned Provider: [facility] DCP follow-up note: CM SPOKE TO CLARK OF INPATIENT REHAB, THEY PLAN TO ACCEPT PT TODAY FOR REHAB AFTER PT'S RENAL ULTRASOUND; THEY HAVE RECEIVED INSURANCE AUTHORIZATION. PT NOTIFIED, IN AGREEMENT WITH DISCHARGE TO INPATIENT REHAB. PT STATES SHE IS NOT READY TO DISCHARGE HOME DUE TO HAVING BREATHING TROUBLE BUT IS NOT HAPPY WITH HER CARE. CM EXPLAINED INPATIENT REHAB AND SERVICES IN REHAB. PT STATES SHE WILL GO AND TRY IT OUT. PT'S SON CALLED PT IN ROOM, PT ASKED CM TO SPEAK TO HER SON. SON INFORMED CM THAT HE WAS THINKING OF COMING TO TAKE PT HOME, CM EXPLAINED REHAB APPROVAL BY INSURANCE AND THAT REHAB WILL TAKE PT TODAY. PT'S SON SEEMED TO ALSO BE IN AGREEMENT AND STATES IT HIS MOTHERS CHOICE. CM SPOKE TO PT WHO IS IN AGREEMENT WITH REHAB. PT ASKED THAT THE JUKEBOX ROUTEMAN NOT GIVE HER ANOTHER MED NEB TREATMENT NOW BECAUSE IT IS WEARING HER OUT. CM PROVIDED PT WITH NEWS DEPARTMENT INTERN NUMBER TO CALL IF HER CARE WAS BAD, PT STATES THAT HER NURSE MANDI IS CARRYING THE WHOLE UNIT. CM ALSO ADVISED THAT CM WILL HAVE UNIT PULL OVER MACHINE OPERATOR SEE HER REGARDING HER CARE COMPLAINTS. CM NOTIFIED UNIT NURSE ROTARY KILN OPERATOR REAL. SEBASTIEN ROSS NOTIFIED. PT CAN DISCHARGE TO INPATIENT REHAB ONCE RENAL ULTRASOUND IS COMPLETED. [facility] IN[facility] TO CONTACT MED 2 NURSE WITH ROOM NUMBER WHEN READY TO ACCEPT PT AND NURSE REPORT. Haleigh Sampson, CASE MANAGEMENT Appended by Haleigh Sampson on 07/31/2019 15:20 RENTAL SALES ASSOCIATE: CM RECEIVED MESSAGE FROM SEBASTIEN ROSS, PT IS NOT STABLE FOR DISCHARGE TO INPATIENT REHAB AT THIS TIME. CM NOTIFIED CLARK OF [facility] IN[facility]. HALEIGH SAMPSON, CASE MANAGEMENT DCP- Discharge Planning Updated by [id number]: Mis Rodriguezrayna on 07/29/19 12:[address] Patient Name: TIM GARCIA Admission Status: ER Accout number: [id number] Admission Date: 07-28-2019 : 1950 Admission Diagnosis: Attending: CASANDRA GOODMAN Current LOS: 1 Anticipated DC Date: Planned Disposition: Inpatient Rehab Primary Insurance: [facility] MEDICARE SOLUTIONS Discharge Planning Comments: CM met with patient to complete initial dc planning assessment. CM educated patient on the CM role and verbal consent given by patient to complete assessment. Patient lives at home alone, States her son lives on the same property. CM discussed availability of home health, rehab services, and medical equipment. Patient states she needs to get stronger and would like a referral to inpatient rehab at [facility]. I informed her that her insurance would need to authorize her to go first. She states her second choice is [facility]. I asked her if she would consider SNF if they did not authorize inpatient rehab and she states "Let's cross that bridge later." CM will continue to follow and will assist as needed with dc plans/needs. Executive Chairman: Mis Deo DCPIA - Discharge Planning Initial Assessment Updated by [id number]: Mis Desouza on 07/29/19 2:50 pm * Is the patient Alert and Oriented? Yes * How many steps to enter\\exit or inside your home? 5/0 * PCP Dr. Deal * Preadmission Environment Home Alone * ADLs Partial Dependent * Partial ADLs (Assistance needed) Ambulation * Equipment Bedside Commode Nebulizer Other Oxygen Shower Chair Walker * Other Equipment Portable oxygen * List name and contact numbers for known caregivers / representatives who currently or will assist patient after discharge: Hosea sheriff - [phone] (message phone) * Verbal permission to speak to the caregivers and representatives has been obtained from the patient. Yes * Community resources currently utilized Home Health * Please name any agencies selected above. [facility] * Additional services required to return to the preadmission environment? No * Can the patient safely return to the preadmission environment? Yes * Has this patient been hospitalized within the prior 30 days at any hospital? No Coverage Notice Reviewer: [id number] - Mis Deo Notice Issued Date-Time: 07/29/2019 14:56 Notice Type: Patient Choice Letter Notice Delivered To: Patient Relationship to Patient: Self Rehabilitation Teacher Name: Delivery Method: HAND - Hand Delivered Kinza Days: Prior Verbal Notification: Recipient Understood Notice: Yes Recipient Signature: Yes Med Rec Note Co-signed by Attending: Coverage Notice Comment: EMILIA for 1)[facility] inpatient rehab 2) [facility] Reviewer: [id number] - Haleigh Sampson Notice Issued Date-Time: 07/31/2019 14:15 Notice Type: IM Discharge Notice Notice Delivered To: Patient Relationship to Patient: Rehabilitation Teacher Name: Delivery Method: HAND - Hand Delivered Kinza Days: Prior Verbal Notification: Recipient Understood Notice: Yes Recipient Signature: Yes Med Rec Note Co-signed by Attending: Coverage Notice Comment: Last DP export: 08/04/19 12:30 p Patient Name: TIM GARCIA Page 21022 at 1525 All edits/amendments must be made on the electronic document DICTATION DATE: 08/04/191523 MAMMOGRAPHY TECH: YOVANA 08/04/191523 RPT#: [id number] DC DATE: STATUS: ADM IN [facility] [address] [place] [address] END OF REPORT
--- NOTE | 2019-08-04 16:21 | MORECARE ---
CASE MANAGEMENT DISCHARGE SUMMARY PATIENT: TIM GARCIA UNIT: [id number] ADM DATE: 07/28/19 AGE: 69 : 52 SEX: F ROOM/BED: D.2307 AUTHOR: CARLOS ENRIQUE,DOC PHYSICIAN: REFERRING PHYSICIAN: MARLENI GOOMDAN MD DATE OF SERVICE: 08/04/19 Discharge Plan Patient Name: TIM GARCIA Facility: [facility]:[place] : 1950 Planned Disposition: Inpatient Rehab Anticipated Discharge Date: 07/31/19 Discharge Date: Expected LOS: 3 Initial Reviewer: [email or web address] Initial Review Date: 07/29/2019 Generated: 08/04/19 5:20 pm Comments DCP- Discharge Planning Updated by [id number]: Trista Francois on 08/04/19 3:[address] Nursing notified CM that patient's niece listed on contact list Gin Rodriguez informed nursing that she was patient's POA and she did not want patient transferred. Gin is suppose to be bringing up POA paperwork to be placed on chart. CM will continue to follow and assist as needed with discharge planning / needs. DCP- Discharge Planning Updated by [id number]: Trista Francois on 08/04/19 2:[address] CM received a call back from transfer center she stated that [facility] - ICU and MED/SURG is at MAX capacity at this time. CM let charge nurse know status. CM will continue to follow and assist as needed with discharge planning / needs. DCP- Discharge Planning Updated by [email or web address]: Trista Francois on 08/04/19 12:[address] CM received a request from Dr. Salmon to contact transfer center because patient's son is demanding patient to be transferred. Patient is confused and unable tell CM if she would like to transfer. CM contacted transfer center and faxed records. Transfer center stated they would call back to Dr. Salmon once they have an accepting physician. CM will continue to follow and assist as needed with discharge planning/ needs. DCP- Discharge Planning Updated by [id number]: Haleigh Sampson on 07/31/19 1:[address] Patient Name: TIM GARCIA Encounter No: [id number] : 1950 Primary Insurance: [facility] MEDICARE SOLUTIONS Anticipated DC Date: 07-31-2019 Planned Disposition: Inpatient Rehab External Planned Provider: [facility] DCP follow-up note: CM SPOKE TO [facility] OF INPATIENT REHAB, THEY PLAN TO ACCEPT PT TODAY FOR REHAB AFTER PT'S RENAL ULTRASOUND; THEY HAVE RECEIVED INSURANCE AUTHORIZATION. PT NOTIFIED, IN AGREEMENT WITH DISCHARGE TO INPATIENT REHAB. PT STATES SHE IS NOT READY TO DISCHARGE HOME DUE TO HAVING BREATHING TROUBLE BUT IS NOT HAPPY WITH HER CARE. CM EXPLAINED INPATIENT REHAB AND SERVICES IN REHAB. PT STATES SHE WILL GO AND TRY IT OUT. PT'S SON CALLED PT IN ROOM, PT ASKED CM TO SPEAK TO HER SON. SON INFORMED CM THAT HE WAS THINKING OF COMING TO TAKE PT HOME, CM EXPLAINED REHAB APPROVAL BY INSURANCE AND THAT REHAB WILL TAKE PT TODAY. PT'S SON SEEMED TO ALSO BE IN AGREEMENT AND STATES IT HIS MOTHERS CHOICE. CM SPOKE TO PT WHO IS IN AGREEMENT WITH REHAB. PT ASKED THAT THE INCLINOMETER TESTER NOT GIVE HER ANOTHER MED NEB TREATMENT NOW BECAUSE IT IS WEARING HER OUT. CM PROVIDED PT WITH [employer]HALT DISTRIBUTOR OPERATOR NUMBER TO CALL IF HER CARE WAS BAD, PT STATES THAT HER NURSE MANDI IS CARRYING THE WHOLE UNIT. CM ALSO ADVISED THAT CM WILL HAVE UNIT NUCLEAR CRITICALITY SAFETY ENGINEER SEE HER REGARDING HER CARE COMPLAINTS. CM NOTIFIED UNIT NURSE SHEET LAYER GIN. SEBASTIEN ROSS NOTIFIED. PT CAN DISCHARGE TO INPATIENT REHAB ONCE RENAL ULTRASOUND IS COMPLETED. [facility] TO CONTACT MED 2 NURSE WITH ROOM NUMBER WHEN READY TO ACCEPT PT AND NURSE REPORT. Haleigh Sampson, CASE MANAGEMENT Appended by Haleigh Sampson on 07/31/2019 15:20 HEEL COVERER MACHINE OPERATOR: CM RECEIVED MESSAGE FROM SEBASTIEN ROSS, PT IS NOT STABLE FOR DISCHARGE TO INPATIENT REHAB AT THIS TIME. CM NOTIFIED [facility] OF [facility]. HALEIHG SAMPSON CASE MANAGEMENT DCP- Discharge Planning Updated by [id number]: Mis Desouza on 07/29/19 12:[address] Patient Name: TIM GARCIA Admission Status: ER Accout number: [id number] Admission Date: 07-28-2019 : 1950 Admission Diagnosis: Attending: CASANDRA GOODMAN Current LOS: 1 Anticipated DC Date: Planned Disposition: Inpatient Rehab Primary Insurance: [facility] MEDICARE SOLUTIONS Discharge Planning Comments: CM met with patient to complete initial dc planning assessment. CM educated patient on the CM role and verbal consent given by patient to complete assessment. Patient lives at home alone, States her son lives on the same property. CM discussed availability of home health, rehab services, and medical equipment. Patient states she needs to get stronger and would like a referral to inpatient rehab at [facility]. I informed her that her insurance would need to authorize her to go first. She states her second choice is [facility]. I asked her if she would consider SNF if they did not authorize inpatient rehab and she states "Let's cross that bridge later." CM will continue to follow and will assist as needed with dc plans/needs. License Distributor: Mis Desouza DCPIA - Discharge Planning Initial Assessment Updated by [id number]: Mis Desouza on 07/29/19 2:50 pm * Is the patient Alert and Oriented? Yes * How many steps to enter\\exit or inside your home? 5/0 * PCP Dr. Deal * Preadmission Environment Home Alone * ADLs Partial Dependent * Partial ADLs (Assistance needed) Ambulation * Equipment Bedside Commode Nebulizer Other Oxygen Shower Chair Walker * Other Equipment Portable oxygen * List name and contact numbers for known caregivers / representatives who currently or will assist patient after discharge: Hosea sheriff - [phone] (message phone) * Verbal permission to speak to the caregivers and representatives has been obtained from the patient. Yes * Community resources currently utilized Home Health * Please name any agencies selected above. [facility] * Additional services required to return to the preadmission environment? No * Can the patient safely return to the preadmission environment? Yes * Has this patient been hospitalized within the prior 30 days at any hospital? No Coverage Notice Reviewer: [id number] - Mis Desouza Notice Issued Date-Time: 07/29/2019 14:56 Notice Type: Patient Choice Letter Notice Delivered To: Patient Relationship to Patient: Self Certified Orthoptist Name: Delivery Method: HAND - Hand Delivered Kinza Days: Prior Verbal Notification: Recipient Understood Notice: Yes Recipient Signature: Yes Med Rec Note Co-signed by Attending: Coverage Notice Comment: EMILIA for 1)[facility] inpatient rehab 2) [facility] Reviewer: [id number] - Haleigh Sampson Notice Issued Date-Time: 07/31/2019 14:15 Notice Type: IM Discharge Notice Notice Delivered To: Patient Relationship to Patient: Certified Orthoptist Name: Delivery Method: HAND - Hand Delivered Kinza Days: Prior Verbal Notification: Recipient Understood Notice: Yes Recipient Signature: Yes Med Rec Note Co-signed by Attending: Coverage Notice Comment: Last DP export: 08/04/19 2:24 p Patient Name: TIM GARCIA Page 12969 at 1621 All edits/amendments must be made on the electronic document DICTATION DATE: 08/04/191619 LUBRICATION EQUIPMENT SERVICER: YOVANA 08/04/191619 RPT#: [id number] DC DATE: STATUS: ADM IN [facility] [address] [place] [address] END OF REPORT
--- NOTE | 2019-08-04 16:57 | NUR ---
PATIENT TAKEN OFF BIPAP FOR MEDS AND DINNER TRAY. PLACED ON 5 LPM VIA NC WITH SPO2 - 96%. VSS.
[2019-08-04 17:08] LABS: UPE RAND - ALBUMIN 71.2 % (()); UPE RAND - ALPHA 1 GLOBULIN 4.7 % (()); UPE RAND - ALPHA 2 GLOBULIN 8.5 % (()); UPE RAND - BETA GLOBULIN 10.2 % (()); UPE RAND - GAMMA GLOBULIN 5.4 % (())
--- NOTE | 2019-08-04 17:24 | NUR ---
VANC TROUGH DRAWN AND SENT TO LAB.
--- NOTE | 2019-08-04 18:01 | NUR ---
REAL (NIECE) AND POA FOR PATIENT AT ROOM, STATES POA IS AT BANK IN [employer]AF[employer]Y [employer]URITY BOX AND WASNT ABLE TO GET THERE PRIOR TO BANK CLOSING TODAY. STATES WILL BRING IN TOMORROW MORNING TO GET PLACED ON CHART.
--- NOTE | 2019-08-04 18:42 | NUR ---
SPOKE TO PHARMACIST REGARDING PATIENTS VANC TROUGH, OK TO GIVE [facility]ANCOMYCIN PHARMACY TO RETIME TO 1830 HRS EVERY 24 HRS.
--- NOTE | 2019-08-04 19:00 | NUR ---
SHIFT ASSESSMENT COMPLETED, PT CARE ASSUMED. MONITORS ON AND WORKING, VITALS STABLE, PT AWAKE AND ALERT, NO SIGNS/SYMPTOMS OF PAIN OR DISCOMFORT NOTED. CALL LIGHT WITHIN REACH. SEE FLOW SHEET FOR FURTHER DETAILS. WILL CONTINUE TO OBSERVE.
--- NOTE | 2019-08-04 21:00 | NUR ---
PT SITTING UP IN BED, PT AWAKE AND ALERT, GRANDDAUGHTER CALLED, PROVIDED PASSCODE AND UPDATE PROVIDED. NO SIGNS/SYMPTOMS OF PAIN OR DISCOMFORT NOTED. WILL CONTINUE TO OBSERVE.
--- NOTE | 2019-08-04 23:00 | NUR ---
PT TURNED AND REPOSITIONED FOR COMFORT. MONITORS ON AND WORKING, VITALS STABLE, PT AWAKE AND ALERT. NO SIGNS/SYMPTOMS OF PAIN OR DISCOMFORT NOTED AT THIS TIME, CALL LIGHT WITHIN REACH, SEE FLOW SHEET FOR FURTHER DETAILS. WILL CONTINUE TO OBSERVE.
[2019-08-05] VITALS (23 sets, daily range): BP systolic 128–175; BP diastolic 74–110
--- NOTE | 2019-08-05 01:00 | NUR ---
PT RESTING, MONITORS ON AND WORKING, VITALS STABLE. CALL LIGHT WITHIN REACH, WILL CONTINUE TO OBSERVE.
--- NOTE | 2019-08-05 03:00 | NUR ---
PT TURNED AND REPOSITIONED FOR COMFORT. MONITORS ON AND WORKING, VITALS STABLE, CALL LIGHT WITHIN REACH. SEE FLOW SHEET FOR FURTHER DETAILS. WILL CONTINUE TO OBSERVE.
[2019-08-05 06:14] LABS: BASOPHILS 0 % (0-2); EOSINOPHILS 0 % (0-7); HEMATOCRIT 33.2 % (36.0-48.0); HEMOGLOBIN 10.1 g/dL (12-16); IMMATURE GRANULOCYTES 1.1 % (0-5); LYMPHOCYTES 5.9 % (15-50); MCH 26.9 pg (26.0-34.0); MCHC 30.4 g/dL (31.0-37.0); MCV 88.3 fL (80.0-100.0); MEAN PLATELET VOLUME 9.9 fL (7.4-10.4); MONOCYTES 5.9 % (2-11); NEUTROPHILS 87.1 % (40-80); PLATELET COUNT 231 10x3/uL (130-400); RBC 3.76 10x6/uL (4.00-5.40); RDW 17.5 % (11.5-14.5)
[2019-08-05 06:22] LABS: ALBUMIN 2.6 g/dL (3.4-5.0); ANION GAP 11.8 mmol/L (8-16); BILIRUBIN - TOTAL 0.34 mg/dL (0.2-1.3); CALCIUM 8.2 mg/dL (8.5-10.1); CARBON DIOXIDE 29.1 mmol/L (21.0-32.0); CREATININE - SERUM 1.6 mg/dL (0.6-1.3); POTASSIUM - SERUM 3.9 mmol/L (3.5-5.1); PROTEIN - SERUM 5.4 g/dL (6.4-8.2)
[2019-08-05 06:44] LABS: WBC 18.8 10x3/uL (4.8-10.8)
--- NOTE | 2019-08-05 07:15 | NUR ---
AWAKES EASILY TO VERBAL STIMULI SKIN WARM AND DRY. STILL HAS SOME HEADACHE,STATES THEY GAVE HER SOME TYLENOL FOR IT AND IT IS BETTER. NO DISTRESS. WATCHING TV. CALDERON CATH PATENT DRAINING CLEAR BHAVNA URINE. INFUSAPORT DRESSING INTACT. NO REDNESS OR DRAINAGE AT SITE. HAND GROUND SYSTEMS ENGINEER EQUAL BUT WEAK. HEAD OF BED ELEVATED. MONITOR SR.
--- NOTE | 2019-08-05 07:52 | NUR ---
PULLED UP IN BED FOR BREAKFAST
--- NOTE | 2019-08-05 10:30 | NUR ---
UP IN CHAIR AT BEDSIDE PER PHYSICAL THERAPY
--- NOTE | 2019-08-05 11:00 | NUR ---
PLACED BACK ON BIPAP DUE TO PULSE OX DROPPING INTO 70'S. UP IN CHAIR AT THIS TIME.
--- NOTE | 2019-08-05 11:30 | NUR ---
PATIENT REQUEST TO GO BACK TO BED. AMBULATED FAIR WITH BIPAP. PATIENT KEEPS TAKING BIPAP OFF AND DESAT'S INTO THE 60'S-70'S. CONSTANTLY HAVING TO REMIND PATIENT THAT SHE NEEDS BIPAP. ADMITS SHE IS SHORT OF BREATH. WHEN BI PAP REPLACED.
--- NOTE | 2019-08-05 13:00 | NUR ---
RESTING COMFORTABLY ON BIPAP SLEEPING NO DISTRESS AT THIS TIME
--- NOTE | 2019-08-05 13:43 | NUR ---
Nutrition follow-up: Diet: ADA consistent CHO PO Intake remains good; 100% of most meals Labs reviewed Pt in bed with BIPAP on this moring Wt: 130# RDN following.
--- NOTE | 2019-08-05 14:06 | NUR ---
FAMILY HERE UPDATE GIVEN. BIPAP OFF AT FAMILY REQUEST. LUNCH SERVED. FAMILY ASSISTANCING . PATIENT TOLERATING WELL.
--- NOTE | 2019-08-05 15:15 | NUR ---
returned to bipap per patient request. head of bed elevated 30 degrees.
--- NOTE | 2019-08-05 17:15 | NUR ---
up in chair at bedside. dinner tray served. coughed up large amount of thick yellow sputum. encourage to continue to deep breath and cough
--- NOTE | 2019-08-05 17:34 | NUR ---
OT NOTE: PT WAS DOING BETTER THIS AM. ASSISTED PT WITH BED MOB WITH MIN ASSIST. SIMPLE GROOMING TASKS WITH SET UP; SIT TO STAND WITH MIN ASSIST; TRANSFER TO CHAIR WITH MIN ASSIST. PROVIDED ALARM AND EDUCATED PT ON IMPORTANCE OF USING CALL LIGHT TO PREVENT FALLS. CONT WITH CONFUSION. 02 REMAINED AROUND 94% GURWINDER FALL,OTR/L [id number]
--- NOTE | 2019-08-05 18:05 | NUR ---
returned to bed per patient request. tolerated fair. minimal shortness of breath. good cough effort, not coughing up much.
[2019-08-05 18:08] LABS: ACID FAST SMEAR Negative (()); AFB SPECIMEN PROCESSING Concentration (())
--- NOTE | 2019-08-05 19:55 | MORECARE ---
CASE MANAGEMENT DISCHARGE SUMMARY PATIENT: TIM GARCIA UNIT: [id number] ADM DATE: 07/28/19 AGE: 69 : 52 SEX: F ROOM/BED: D.2307 AUTHOR: CARLOS ENRIQUE,DOC PHYSICIAN: REFERRING PHYSICIAN: MARLENI GOODMAN MD DATE OF SERVICE: 08/05/19 Discharge Plan Patient Name: TIM GARCIA Facility: [facility]:[place] : 1950 Planned Disposition: Inpatient Rehab Anticipated Discharge Date: 07/31/19 Discharge Date: Expected LOS: 3 Initial Reviewer: [email or web address] Initial Review Date: 07/29/2019 Generated: 08/05/19 8:55 pm Comments DCP- Discharge Planning Updated by [email or web address]: Trista Francois on 08/05/19 6:[address] Received a copy of POA paperwork and placed it in patient chart. CM will continue to follow and assist as needed with discharge planning / needs. DCP- Discharge Planning Updated by [id number]: Trista Francois on 08/04/19 3:[address] Nursing notified CM that patient's niece listed on contact list Gin Rodriguez informed nursing that she was patient's POA and she did not want patient transferred. Gin is suppose to be bringing up POA paperwork to be placed on chart. CM will continue to follow and assist as needed with discharge planning / needs. DCP- Discharge Planning Updated by [id number]: Trista Francois on 08/04/19 2:[address] CM received a call back from transfer center she stated that [facility] - ICU and MED/SURG is at MAX capacity at this time. CM let charge nurse know status. CM will continue to follow and assist as needed with discharge planning / needs. DCP- Discharge Planning Updated by [id number]: Trista Francois on 08/04/19 12:[address] CM received a request from Dr. Salmon to contact transfer center because patient's son is demanding patient to be transferred. Patient is confused and unable tell CM if she would like to transfer. CM contacted transfer center and faxed records. Transfer center stated they would call back to Dr. Dworkin once they have an accepting physician. CM will continue to follow and assist as needed with discharge planning/ needs. DCP- Discharge Planning Updated by [id number]: Haleigh Sampson on 07/31/19 1:[address] Patient Name: TIM GARCIA Encounter No: [id number] : 1950 Primary Insurance: [facility] MEDICARE SOLUTIONS Anticipated DC Date: 07-31-2019 Planned Disposition: Inpatient Rehab External Planned Provider: [facility] DCP follow-up note: CM SPOKE TO [facility] OF INPATIENT REHAB, THEY PLAN TO ACCEPT PT TODAY FOR REHAB AFTER PT'S RENAL ULTRASOUND; THEY HAVE RECEIVED INSURANCE AUTHORIZATION. PT NOTIFIED, IN AGREEMENT WITH DISCHARGE TO INPATIENT REHAB. PT STATES SHE IS NOT READY TO DISCHARGE HOME DUE TO HAVING BREATHING TROUBLE BUT IS NOT HAPPY WITH HER CARE. CM EXPLAINED INPATIENT REHAB AND SERVICES IN REHAB. PT STATES SHE WILL GO AND TRY IT OUT. PT'S SON CALLED PT IN ROOM, PT ASKED CM TO SPEAK TO HER SON. SON INFORMED CM THAT HE WAS THINKING OF COMING TO TAKE PT HOME, CM EXPLAINED REHAB APPROVAL BY INSURANCE AND THAT REHAB WILL TAKE PT TODAY. PT'S SON SEEMED TO ALSO BE IN AGREEMENT AND STATES IT HIS MOTHERS CHOICE. CM SPOKE TO PT WHO IS IN AGREEMENT WITH REHAB. PT ASKED THAT THE PRE[facility] PROOFER NOT GIVE HER ANOTHER MED NEB TREATMENT NOW BECAUSE IT IS WEARING HER OUT. CM PROVIDED PT WITH VP ANALYTICS NUMBER TO CALL IF HER CARE WAS BAD, PT STATES THAT HER NURSE MANDI IS CARRYING THE WHOLE UNIT. CM ALSO ADVISED THAT CM WILL HAVE UNIT COLON THERAPIST SEE HER REGARDING HER CARE COMPLAINTS. CM NOTIFIED UNIT NURSE WEEKEND CAREGIVER GIN. SEBASTIEN ROSS NOTIFIED. PT CAN DISCHARGE TO INPATIENT REHAB ONCE RENAL ULTRASOUND IS COMPLETED. [facility] TO CONTACT MED 2 NURSE WITH ROOM NUMBER WHEN READY TO ACCEPT PT AND NURSE REPORT. Haleigh Sampson, CASE MANAGEMENT Appended by Haleigh Sampson on 07/31/2019 15:20 GLOBAL CHIEF CREATIVE OFFICER: CM RECEIVED MESSAGE FROM SEBASTIEN ROSS, PT IS NOT STABLE FOR DISCHARGE TO INPATIENT REHAB AT THIS TIME. CM NOTIFIED [facility] OF [facility]. HALEIGH SAMPSON, CASE MANAGEMENT DCP- Discharge Planning Updated by [id number]: Mis Desouza on 07/29/19 12:[address] Patient Name: TIM GARCIA Admission Status: ER Accout number: [id number] Admission Date: 07-28-2019 : 1950 Admission Diagnosis: Attending: CASANDRA GOODMAN Current LOS: 1 Anticipated DC Date: Planned Disposition: Inpatient Rehab Primary Insurance: [facility] MEDICARE SOLUTIONS Discharge Planning Comments: CM met with patient to complete initial dc planning assessment. CM educated patient on the CM role and verbal consent given by patient to complete assessment. Patient lives at home alone, States her son lives on the same property. CM discussed availability of home health, rehab services, and medical equipment. Patient states she needs to get stronger and would like a referral to inpatient rehab at [facility]. I informed her that her insurance would need to authorize her to go first. She states her second choice is [facility]. I asked her if she would consider SNF if they did not authorize inpatient rehab and she states "Let's cross that bridge later." CM will continue to follow and will assist as needed with dc plans/needs. Media Technician: Mis Desouza DCPIA - Discharge Planning Initial Assessment Updated by [id number]: Mis Desouza on 07/29/19 2:50 pm * Is the patient Alert and Oriented? Yes * How many steps to enter\\exit or inside your home? 5/0 * PCP Dr. Deal * Preadmission Environment Home Alone * ADLs Partial Dependent * Partial ADLs (Assistance needed) Ambulation * Equipment Bedside Commode Nebulizer Other Oxygen Shower Chair Walker * Other Equipment Portable oxygen * List name and contact numbers for known caregivers / representatives who currently or will assist patient after discharge: [facility] - [phone] (message phone) * Verbal permission to speak to the caregivers and representatives has been obtained from the patient. Yes * Community resources currently utilized Home Health * Please name any agencies selected above. [facility] * Additional services required to return to the preadmission environment? No * Can the patient safely return to the preadmission environment? Yes * Has this patient been hospitalized within the prior 30 days at any hospital? No Coverage Notice Reviewer: [id number] - iMs Desouza Notice Issued Date-Time: 07/29/2019 14:56 Notice Type: Patient Choice Letter Notice Delivered To: Patient Relationship to Patient: Self Manager Stars Name: Delivery Method: HAND - Hand Delivered Kinza Days: Prior Verbal Notification: Recipient Understood Notice: Yes Recipient Signature: Yes Med Rec Note Co-signed by Attending: Coverage Notice Comment: EMILIA for 1)[facility] inpatient rehab 2) [facility] Reviewer: [id number] Naty Sampson Notice Issued Date-Time: 07/31/2019 14:15 Notice Type: IM Discharge Notice Notice Delivered To: Patient Relationship to Patient: Manager Stars Name: Delivery Method: HAND - Hand Delivered Kinza Days: Prior Verbal Notification: Recipient Understood Notice: Yes Recipient Signature: Yes Med Rec Note Co-signed by Attending: Coverage Notice Comment: Last DP export: 08/04/19 3:21 p Patient Name: TIM GARCIA Page [id number] at 1952 All edits/amendments must be made on the electronic document DICTATION DATE: 08/05/191954 LONG WALL MINING MACHINE HELPER: YOVANA 08/[birth year] RPT#: [id number] DC DATE: STATUS: ADM IN [place] [id number] [place] [address] END OF REPORT
--- NOTE | 2019-08-05 20:00 | NUR ---
PT IN BED, AAO X 3, RESP EVEN AND UNLABORED. O2@7L/NC, PT USES BIPAP AT HS, NO C/O PAIN OR DISCOMFORT NOTED AT THIS TIME. CL IN REACH, SR UP X 2.
--- NOTE | 2019-08-05 20:41 | NUR ---
OT NOTE: PT COMPLETED POSITIONING WITH MIN A. 112-120 THANK YOU,CHUCKY LAFLEUR
--- NOTE | 2019-08-05 22:49 | NUR ---
PT B/P 175/110, MEDICATED WITH CLONIDINE 0.1 MG PO AT THIS TIME.
[2019-08-06] VITALS (25 sets, daily range): BP systolic 113–158; BP diastolic 66–97
[2019-08-06 07:17] LABS: BASOPHILS 0 % (0-2); EOSINOPHILS 0 % (0-7); HEMATOCRIT 32.4 % (36.0-48.0); HEMOGLOBIN 9.9 g/dL (12-16); IMMATURE GRANULOCYTES 1.4 % (0-5); LYMPHOCYTES 4.9 % (15-50); MCH 26.8 pg (26.0-34.0); MCHC 30.6 g/dL (31.0-37.0); MCV 87.6 fL (80.0-100.0); MEAN PLATELET VOLUME 10.3 fL (7.4-10.4); MONOCYTES 3.6 % (2-11); NEUTROPHILS 90.1 % (40-80); PLATELET COUNT 212 10x3/uL (130-400); RDW 17.2 % (11.5-14.5); WBC 19.2 10x3/uL (4.8-10.8)
[2019-08-06 07:30] LABS: ANION GAP 10.3 mmol/L (8-16); CALCIUM 8.3 mg/dL (8.5-10.1); CARBON DIOXIDE 27.2 mmol/L (21.0-32.0); CREATININE - SERUM 1.9 mg/dL (0.6-1.3)
[2019-08-06 07:34] LABS: POTASSIUM - SERUM 4.5 mmol/L (3.5-5.1)
--- NOTE | 2019-08-06 08:00 | NUR ---
UP IN BED AWAKE AT THIS TIME. VSS. NO ACUTE DISTRESS NOTED. CALL LIGHT IN REACH. WILL CONTINUE PLAN OF CARE.
--- NOTE | 2019-08-06 10:40 | NUR ---
NO ACUTE DISTRESS NOTED. PT COMPLAINT OF SOME DISCOMFORT TO RT SIDE WHERE SHE STATES HAS BEEN SORE SINCE SHE HAD RADIATION. PT REQUESTED PRN TYLENOL, TYLENOL ADMIN PER REQUEST. PT SITTING UP IN BED. NO ACUTE DISTRESS NOTED. WILL CONTINUE PLAN OF CARE.
--- NOTE | 2019-08-06 11:23 | NUR ---
UP IN CHAIR AT THIS TIME, BIPAP IN PLACE. VSS. NO ACUTE DISTRESS NOTED. WILL CONTINUE PLAN OF CARE.
--- NOTE | 2019-08-06 13:02 | NUR ---
CHG BATH OFFERED TO PT, PT REFUSED STATING SHE ALREADY HAD A BATH THIS MORNING AND DID NOT WANT ANOTHER ONE TODAY.
--- NOTE | 2019-08-06 15:12 | NUR ---
LYING IN BED RESTING AT THIS TIME. VSS. NO ACUTE DISTRESS NOTED. RESPIRATIONS STEADY AND UNLABORED. AWAKENS EASILY WHEN SPOKEN TO. PT TURNED Q2H. WILL CONTINUE PLAN OF CARE.
--- NOTE | 2019-08-06 17:07 | NUR ---
SITTING UP ON SIDE OF BED EATING SUPPER AT THIS TIME. FAMILY AT BEDSIDE VISITING WITH PT. PT DENIES ANY CURRENT NEEDS. CALL LIGHT IN REACH. WILL CONTINUE PLAN OF CARE.
--- NOTE | 2019-08-06 17:34 | NUR ---
OT NOTE: PT SEEN IN PM.. STATED THAT SHE WAS TIRED BUT AGREEABLE TO PERFORM THERAPY. BED MOB WITH MIN ASSIST; EOB SITTING WITH SPV AND VC FOR UPRIGHT SITTING. SIT TO STAND IWTH MOD ASSIST; ABLE TO SIDE STEP LEFT AND RIGHT WITH MIN ASSIST. SIMPLE GROOMING TO INCLUDE WASHING FACE AND HANDS, AND BRUSHING HAIR; BACK TO BED WITH VERY MINIMAL ASSIST TO GET LES BACK IN BED; MOD ASSIST TO REPOSITION UP IN BED. GURWINDER FALL,OTR/L [phone]
[2019-08-07] VITALS (24 sets, daily range): BP systolic 118–160; BP diastolic 69–100
[2019-08-07 05:09] LABS: CAT - DOPAMINE 269 pg/mL (0-48); CAT - EPINEPHRINE 221 pg/mL (0-62); CAT - NOREPINEPHRINE 2292 pg/mL (0-874)
[2019-08-07 06:23] LABS: BASOPHILS 0 % (0-2); EOSINOPHILS 0 % (0-7); HEMOGLOBIN 9.9 g/dL (12-16); IMMATURE GRANULOCYTES 1.1 % (0-5); LYMPHOCYTES 1.8 % (15-50); MCH 26.8 pg (26.0-34.0); MCHC 30.9 g/dL (31.0-37.0); MCV 86.5 fL (80.0-100.0); MEAN PLATELET VOLUME 10.3 fL (7.4-10.4); MONOCYTES 6.2 % (2-11); NEUTROPHILS 90.9 % (40-80); PLATELET COUNT 211 10x3/uL (130-400); RDW 16.7 % (11.5-14.5); WBC 19.3 10x3/uL (4.8-10.8)
[2019-08-07 06:58] LABS: ANION GAP 8.9 mmol/L (8-16); CALCIUM 7.9 mg/dL (8.5-10.1); CARBON DIOXIDE 28.2 mmol/L (21.0-32.0); CREATININE - SERUM 1.6 mg/dL (0.6-1.3); PHOSPHOROUS 3.7 mg/dL (2.5-4.9); POTASSIUM - SERUM 4.1 mmol/L (3.5-5.1)
--- NOTE | 2019-08-07 07:09 | NUR ---
REASSESSMENT COMPLETE WITH NO CHANGES FROM PREVIOUS ASSESSMENT.
--- NOTE | 2019-08-07 07:30 | NUR ---
REPORT RECEIVED. PT RESTING QUIETLY. ON BIPAP AT 40%. HAS A LEFT CHEST PORT ACCESSED WITH NS INFUSING AT KVO. PT HAS A CALDERON IN PLACE. VSS. WILL CONTINUE TO MONITOR.
--- NOTE | 2019-08-07 09:37 | NUR ---
Nutrition follow-up: Diet: Consistent CHO; Glucerna Shake TID PO intake ~60% average of meals Labs reviewed Wt: 121# PO intake fair to good at meals RDN following.
--- NOTE | 2019-08-07 10:07 | NUR ---
OT NOTE: PT DOING BETTER TODAY; BED MOB TO INCLUDE SUPINE TO SIT WITH MIN ASSIST; ABLE TO SCOOT TO EOB WITHOUT ASSIST; CONTINUES TO BE UNSTEADY WITH GAIT WITH GRINDING WHEEL OPERATOR X 2. C/O PAIN IN L SIDE AND STATES THIS IS WHY SHE IS LEANING TOWARDS THAT SIDE. ABLE TO PERFORM SIMPLE GROOMING TASKS TO INCLUDE WASHING FACE AND HANDS, BRUSHING TEETH, AND BRUSHING HAIR WITH SET UP. ATTEMPTED UE AROM ACT HOWEVER, REPORTS THAT IT IS TOO PAINFUL TO HER SIDE. PT UP IN CHAIR WITH CHAIR ALARM ON AND IN PLACE. GURWINDER FALL, OTR/L [phone]
--- NOTE | 2019-08-07 11:06 | NUR ---
Rehab continues to follow this patient. She had managed Medicare with [facility] and will require a new preauth before coming to rehab. The previous auth has . She continues to be on BIPAP and high flow 02, her white count is trending up and her CXR has worsened. It is doubtful she can participate in the required 3 hrs of therapy 5 days a week that is required by Medicare at this time. Rehab will discuss with the CM Trista Francois and continue to follow. Daria Pelletier RN Clinical Liaison, Rehab
--- NOTE | 2019-08-07 13:29 | NUR ---
BIPAP BACK ON PT. PT RESTING QUIETLY. VSS. WILL CONTINUE TO MONITOR.
--- NOTE | 2019-08-07 18:20 | NUR ---
PT REQUESTED TO BE BACK ON BIPAP. ATE MOST OF HER DINNER. NO OTHER NEEDS AT THIS TIME. WILL CONTINUE TO MONITOR.
--- NOTE | 2019-08-07 19:00 | NUR ---
ASSESSMENT COMPLETED. BIPAP ON AT 40%. DENIES ANY NEEDS. CALL LIGHT IN REACH.
--- NOTE | 2019-08-07 21:00 | NUR ---
REPOSITIONED. DENIES ANY NEEDS
[2019-08-07 21:06] LABS: META PL - METANEPHRINE 55 pg/mL (0-62); META PL - NORMETANEPHRINE 137 pg/mL (0-145)
--- NOTE | 2019-08-07 23:00 | NUR ---
RE-ASSESSMENT COMPLETED. NO CHANGES SINCE LAST ASSESSMENT. CHG BATH WITH COMPLETE LINEN CHANGE
--- NOTE | 2019-08-07 23:00 | NUR ---
NC HF AT 5L ON, BIPAP OFF.
[2019-08-08] VITALS (24 sets, daily range): BP systolic 130–170; BP diastolic 72–124
--- NOTE | 2019-08-08 01:00 | NUR ---
EYES CLOSED, EASILY WAKES. BIPAP BACK ON AT APPROX MIDNIGHT
--- NOTE | 2019-08-08 03:00 | NUR ---
RE-ASSESSMENT COMPLETED. NO CHANGES SINCE LAST ASSESSMENT
--- NOTE | 2019-08-08 05:00 | NUR ---
REPOSITIONED. DENIES ANY NEEDS
[2019-08-08 06:37] LABS: ANION GAP 11.2 mmol/L (8-16); CALCIUM 8.2 mg/dL (8.5-10.1); CARBON DIOXIDE 26.9 mmol/L (21.0-32.0); CREATININE - SERUM 1.7 mg/dL (0.6-1.3); MAGNESIUM - SERUM 2.3 mg/dL (1.8-2.4); PHOSPHOROUS 3.6 mg/dL (2.5-4.9); POTASSIUM - SERUM 4.1 mmol/L (3.5-5.1)
[2019-08-08 06:38] LABS: HEMATOCRIT 32.6 % (36.0-48.0); MCH 26.7 pg (26.0-34.0); MCHC 30.7 g/dL (31.0-37.0); MCV 86.9 fL (80.0-100.0); MEAN PLATELET VOLUME 9.5 fL (7.4-10.4); PLATELET COUNT 207 10x3/uL (130-400); RBC 3.75 10x6/uL (4.00-5.40); RDW 16.8 % (11.5-14.5); WBC 20.5 10x3/uL (4.8-10.8)
[2019-08-08 07:43] LABS: MONOCYTES 2 % (2-11); NEUTROPHILS 95 % (40-80); PLATELET ESTIMATE NORMAL
--- NOTE | 2019-08-08 15:18 | NUR ---
0700 REPORT RECIEVED AND CARE ASSUMED OF PATIENT.. PT IS AWAKE AND APPROPRIATE IN RESPONSES.. O2 4 L NC.. 0830 BREAKFAST SERVED AND PT IS FEEDING SELF .. FSBS DONE 121 NO INSULIN COVER AT THIS TIME.. 0900 MEDS GIVEN 100% DIET EATEN .. LEANNN RENAL BILLING AND QUALITY TECHNICIAN IN TO SEE PT.. 0930 PHYSICAL THERAPY IN TO AMBULATE PATIENT.. PT TOLERATED WELL AND INTO CHAIR POST AMBU;LATION.. 1000 DR MARCANO IN TO SEE PT.. 1200 FSBS DONE 12 UNITS INSULIN COVER.. LUNCH SERVED.. CONTINUES IN CHAIR FFEEDING SELF.. 1230 ASSISTED BACK TO BED.. PT REQUEST BIPAP O2 .. ON AT 40% 1235 FAMILY IN TO SEE PT.. UDPATE GIVEN.. 1330 SLEEPING BIPAP REMAINS ON 1430 AWAKE BIPAP OFF 4LNC ON..
--- NOTE | 2019-08-08 17:11 | NUR ---
1530 REQUEST BEDPAN 1600 FAMILY IN TO SEE PT, WITHOUT RESULTS IN BEDPAN 1615 FSBS DONE ... INSULIN GIVEN.. DINNER TRAY SERVED
--- NOTE | 2019-08-08 18:51 | NUR ---
1730 1000% DIET EATEN.. 1800 BACK ON BIPAP PER RT
--- NOTE | 2019-08-08 19:10 | NUR ---
RECIVED BEDSIDE REPORT AT BEDSIDE. PT IS A&OX4 AWAKE WITH BIPAP ON WATCHING TV. VSS. WILL PERFORM FULL ASSESSMENT AND DOUCMENT. NO NEEDS OR PAIN VERBALIZED. BED IS LOW,SIDE RAILX2,CALL LIGHT WITHIN REACH. WILL CONINTUE TO MONITOR
--- NOTE | 2019-08-08 20:35 | NUR ---
PT IS SITTING UP IN BED WATHCIN TV. CAME INTO ROOM TO ADMINISTER SCHEDULED MEDICATIONS. I ASKED HER IF SHE IS IN ANY PAIN AND SHE SAID "YES MY RIGHT SHOULDER". I ASKED IF SHE USUALLY TAKES ANYTHING FOR THAT. SHE SAID "YES TYLENOL". PT DOES HAVE TYLENOL SHCEDULED PRN FOR PAIN. SO I WILL ADMINSITER THIS AND DOCUMENT IN JUL. PT MOVES HERSELF INDIVIDUALLY BUT I WILL ENCOURAGE FOR HER TO ROLL AND MOVE EVERY 2-4 HOURS. NO OTHER NEEDS VOICED. BED IS LOW,SIDE RAILSX2,CALL LIGHT WITHIN REACH. WILL CONTINUE TO MONITOR.
--- NOTE | 2019-08-08 22:50 | NUR ---
PT IS RESTING IN BED WITH EYES CLOSED WITH BIPAP ON. VSS. BED IS LOW,SIDE RAILSX2,CALL LIGHT WITHIN REACH. WILL CONTINUE TO MONITOR
--- NOTE | 2019-08-08 23:11 | NUR ---
PT USED CALL LIGHT AND VOICED "I THINK I NEED TO GET ON THE POT". HELPED ASSIT PT TO BEDSIDE CAMMODE PER MAX ASSIST. PT COULD HARDLY STAND WITHOUT MUSH HELP TO LIFT. SHE HAS MEDIUM FORMED BROWN BM. ASSISTED BACK TO BED AND GOT ASSIT TO LIFT HER UP IN THE BED. BIPAP IS ON. VSS. NO OTHER NEEDS VOICED. WILL PERFORM RE-ASSESSMENT AT THIS TIME AND DOCUMNET. BED IS LOW,SIDE RAISLX2,CALL JUNO PETERSEN. WILL CONITINUE TO MONITOR
[2019-08-09] VITALS (22 sets, daily range): BP systolic 115–172; BP diastolic 65–121
--- NOTE | 2019-08-09 00:15 | NUR ---
CHECKED PT BS. IT IS 155. WILL ADMINSITER 8UNITS OF INSULIN PER PROTOCOL AND ORDER. PT IS RESTING WITH EYES CLOSED. VOICES NO NEEDS WHEN AWAKEN. VSS. BED IS LOW,SIDE RAILSX2,CALL LIGHT WITHIN ERACH. WILL CONTINUE TO MONIOTR
--- NOTE | 2019-08-09 01:30 | NUR ---
PT IS RESTING IN BED WITH EYS CLOSED. BIPAP IS ON. VSS. BED IS LOW,SIDE RAISLX2,CALL LIGTH WITHIN REACH. WILL CONTINUE TO MONITOR
--- NOTE | 2019-08-09 02:46 | NUR ---
PT USED CALL LIGHT AND REQUESTED"CAN I GET TWO TYLENOL AND MY XANEX?". I TOLD HER I WOULD LOOK AND COME BACK WITH THEM IF IT IS TIME. PT VOICED "THANK YOU AND WILL YOU BRING SOME MORE WATER WELL" I VOICED YES GAETANO. WILL DOCUMENT ON JUL. VSS.
[2019-08-09 04:27] LABS: BASOPHILS 0 % (0-2); EOSINOPHILS 0 % (0-7); HEMATOCRIT 32.5 % (36.0-48.0); IMMATURE GRANULOCYTES 1.3 % (0-5); LYMPHOCYTES 2.9 % (15-50); MCH 26.7 pg (26.0-34.0); MCHC 30.8 g/dL (31.0-37.0); MCV 86.9 fL (80.0-100.0); MEAN PLATELET VOLUME 9.3 fL (7.4-10.4); MONOCYTES 2.7 % (2-11); NEUTROPHILS 93.1 % (40-80); PLATELET COUNT 226 10x3/uL (130-400); RBC 3.74 10x6/uL (4.00-5.40); RDW 16.6 % (11.5-14.5); WBC 27.9 10x3/uL (4.8-10.8)
[2019-08-09 04:49] LABS: ANION GAP 14.9 mmol/L (8-16); CALCIUM 7.9 mg/dL (8.5-10.1); CARBON DIOXIDE 25.2 mmol/L (21.0-32.0); CREATININE - SERUM 1.7 mg/dL (0.6-1.3); PHOSPHOROUS 3.5 mg/dL (2.5-4.9); POTASSIUM - SERUM 4.1 mmol/L (3.5-5.1)
--- NOTE | 2019-08-09 05:45 | NUR ---
ADMINISTERED MEDS THAT ARE SCHEDULED AT THIS TIME. ALSO CHANGED OUT IV TUBING TO CEAN TUBING. PERFOMRED FULL BED BATH WITH CHG. I ASLO WASHED HAIR WITH SHOWER CAP. THE PT HELPED A MODERATE AMOUNT. SHE DID HER ORAL CARE INDEPENDENTLY. ALSO PERFORMED CALDERON CATHETOR CARE. CHANGED ALL LINENS AND GOWN AT THIS TIME. PT TOLERATED WELL WITH NO C/O. VSS. WILL GET PT UP SHORTLY TO CHAIR FOR BREAKFAST. BED IS LOW,SIDE RIALSX2,CALL [facility] WITHIN REACH. WILL CONINTUE TO MONITOR
--- NOTE | 2019-08-09 14:07 | NUR ---
0700 REPORT RECIEVED AND CARE ASSUMED OF PT.. PT IS AAO WITHOUT C/O AT THIS TIME.. 0800 ASSISTED OOB TO THE CHAIR.. 0830 BREAKFAST SERVED AND FSBS DONE WIHJTOUT INSULIN COVER.. 0900 MEDS GIVEN CONTINUES IN CHAIR AT BEDSIDE.. 1030 ASSISTED BACK TO THE BED PER PATIENT REQUEST..REQUEST BIPAP.. PLACED ON PATIENT BACK ON BIPAP 1130 CONTINUES ON BIPAP SLEEPING.. 1200 FSBS DONE AND LUNCH SERVED.. O2 CHANGED TO NC 5 LITERS.. 1300 1000% LUNCH EATEN.. BIPAP BACK ON PER PATIENT REQUEST..
--- NOTE | 2019-08-09 16:19 | NUR ---
1330 VISITORS AT THE BEDSIDE.. BIPAP OFF AND NC ON PT IS CONVERSING.. 1500 BIPAP ON BY RT PT 1600 FSBS DONE AND MEDS GIVEN INSULIN COVER 8 UNITS.. CONITNUES ON BIPAP O2.. URINE SPECIMEN SENT TO LAB ORDERED..
[2019-08-09 16:22] LABS: GLUCOSE NEGATIVE (NEGATIVE); KETONE NEGATIVE (NEGATIVE); NITRITE NEGATIVE (NEGATIVE)
[2019-08-09 16:23] LABS: BILIRUBIN NEGATIVE (NEGATIVE); UROBILINOGEN NORMAL (NORMAL)
[2019-08-09 16:27] LABS: EPITHELIAL CELLS 0-5 /hpf (0-5)
[2019-08-09 16:28] LABS: BACTERIA MODERATE /hpf (NEGATIVE)
--- NOTE | 2019-08-09 18:55 | NUR ---
recived bedside report at bedside. pt is a&ox4 awake watching tv. she has nc on at 4L. VSS. when asked pt voices no complaints or pain at this time. will do full assessment and document. bed is low,side railsx2,call light wihtin reach. will continue to monitor
--- NOTE | 2019-08-09 21:09 | NUR ---
PT USED CALL LIGHT AND ASKED IF SHE COULD HAVE A XANEX AND TYLENOL FOR ANXIETY AND RIGHT SHOULDER PAIN. PT HAS PRN ORDERS FOR THESE MEDS. WILL ADMINISTER AND DOC IN JUL. NO OTHER NEEDS VOICED. VSS. BED IS LOW,SIDE RAILSX2,CALL LIGHT WITHIN REACH. WILL CONTINUE TO MONITOR
--- NOTE | 2019-08-09 23:30 | NUR ---
PT IS RESTING IN BED WITH EYES CLOSED. BIPAP IS ON. VSS. WILL PERFORM RE-ASSESSMENT AND DOCUUMENT. BED IS LOW,SIDE RIALSX2,CALL LIGHT WITHIN REACH. WILL CONINTUE TO MONITOR
[2019-08-10] VITALS (23 sets, daily range): BP systolic 133–173; BP diastolic 68–108
--- NOTE | 2019-08-10 00:57 | NUR ---
PT IS RESTING IN BED WITH EYES CLOSD.VSS. BED IS LOW,SIDE RAISLX2,CALL LIGHT WITHIN REACH. WILL CONTINUE TO MONITOR
--- NOTE | 2019-08-10 02:54 | NUR ---
WENT INTO ROOM TO DO RE-ASSESSMENT. PT IS RESTIGN WITH EYES CLOSED. VSS. WILL ASSESS AND DOCUMENT. BED IS LOW,SIDE RAILSX2,CALL LIGHT WTIHIN REACH. WILL CONTINUE TO MONITOR
[2019-08-10 04:22] LABS: HEMATOCRIT 33.8 % (36.0-48.0); HEMOGLOBIN 10.5 g/dL (12-16); MCH 26.7 pg (26.0-34.0); MCHC 31.1 g/dL (31.0-37.0); MEAN PLATELET VOLUME 9.6 fL (7.4-10.4); PLATELET COUNT 241 10x3/uL (130-400); RBC 3.93 10x6/uL (4.00-5.40); RDW 16.4 % (11.5-14.5); WBC 29.5 10x3/uL (4.8-10.8)
[2019-08-10 04:37] LABS: ANION GAP 11.6 mmol/L (8-16); CALCIUM 8.2 mg/dL (8.5-10.1); CARBON DIOXIDE 25.9 mmol/L (21.0-32.0); CREATININE - SERUM 1.5 mg/dL (0.6-1.3); PHOSPHOROUS 4.1 mg/dL (2.5-4.9); POTASSIUM - SERUM 4.5 mmol/L (3.5-5.1)
[2019-08-10 04:38] LABS: LYMPHOCYTES 1 % (15-50); NEUTROPHILS 99 % (40-80); PLATELET ESTIMATE NORMAL
[2019-08-10 04:39] LABS: SCHISTOCYTES OCC; TARGET CELLS OCC
--- NOTE | 2019-08-10 05:47 | NUR ---
PT IS RESTING IN BED WITH EYES CLOSED. BIPAP IS ON. VSS. WHEN AWOKEN AND ASKED PT VOICES"IM GOOD". NO NEEDS VOICED. BED IS LOW,SIDE RAILSX2,CALL LIGHT WITHIN REACH. WILL CONTINUE TO MONITOR
--- NOTE | 2019-08-10 07:15 | NUR ---
REOPRT RECIEVED. ASSESSMENT COMPLETE PER FLOW SHEET. VSS. PT RESTING COMFORTABLY WILL CNOTINUE TO MONITOR
[2019-08-10 10:08] LABS: ALDOSTERONE <1.0 ng/dL (0.0-30.0)
--- NOTE | 2019-08-10 11:15 | NUR ---
REASSESSMENT COMPLETE PER FLOW SHEET. PT ASSISTED UP OOB TO CHAIR ATE 75% LUNCH DENIES NEEDS WILL CONTINUE TO MONITOR
--- NOTE | 2019-08-10 12:49 | NUR ---
Nutrition follow-up: Diet: ADA consistent CHO PO intake 100% of 2 meals over the weekend. PT now on BIPAP almost continuously Labs reviewed Wt: 142# Will need nutrition support if po intake becomes inadequate. RDN following.
--- NOTE | 2019-08-10 13:37 | NUR ---
PT ASSISTED BACK TO BED. PLACED ON BIPAP PER REQUEST. DENIES FURTHER NEEDS IWLL CONTINUE TO MONITOR
--- NOTE | 2019-08-10 15:00 | NUR ---
REASSESSMENT COMPLETE PER FLOW SHEET. VSS. PT RESTING COMFORTABLYWILL CONTINUE TO MONITOR
[2019-08-10 16:08] LABS: ANCA - ANTIMYELOPEROXIDASE <9.0 U/mL (0.0-9.0); ANCA - ANTIPROTEINASE 3 <3.5 U/mL (0.0-3.5); ANCA - ATYPICAL <1:20 titer (Neg:<1:20); ANCA - CYTOPLASMIC <1:20 titer (Neg:<1:20); ANCA - PERINUCLEAR <1:20 titer (Neg:<1:20)
--- NOTE | 2019-08-10 17:00 | NUR ---
ASSISTED UP TO BEDSIDE COMMODE. LARGE BM NOTED.
--- NOTE | 2019-08-10 18:23 | NUR ---
OT NOTE: PT COMPLETED SUPINE TO SIT REQUIRED CGA. PT EXHIBITED POOR TRUNK CONTROL. PT COMPLETED BED TO CHAIR TRANSFER WITH MIN A. PT COMPLETED UE AROM AXS AT EOB. PT COMPLETED FACE WASH WITH SET UP. PT IS WEAK AND REQUIRED BREAKS. [id number] THANK YOU,CHUCKY LAFLEUR
--- NOTE | 2019-08-10 19:00 | NUR ---
Report received from off going nurse. Pt is sitting up in bed with bipap on at this time. No needs voiced at this time. No s/s of distress. Initial assessment completed, see flowsheet for details. Will continue to monitor.
--- NOTE | 2019-08-10 21:00 | NUR ---
Pt is sitting up in bed watching tv at this time. No needs voiced. No s/s of distress noted. Will continue to monitor.
--- NOTE | 2019-08-10 23:00 | NUR ---
Reassessment completed, see flowsheet for details. Pt is sitting up in bed watching tv at this time. No needs voiced. No s/s of distress noted. Will continue to monitor.
[2019-08-11] VITALS (21 sets, daily range): BP systolic 133–169; BP diastolic 76–102
--- NOTE | 2019-08-11 01:00 | NUR ---
Pt is laying in bed with eyes closed. No needs voiced at this time. No s/s of distress. Will continue to monitor.
--- NOTE | 2019-08-11 03:00 | NUR ---
Reassessment completed, see flowsheet for details. Pt is laying in bed with eyes closed. No needs voiced. No s/s of distress noted. Will continue to monitor.
--- NOTE | 2019-08-11 05:00 | NUR ---
Pt is laying in bed with eyes closed. No needs noted. No s/s of distress. Will continue to monitor.
[2019-08-11 05:37] LABS: HEMATOCRIT 34.5 % (36.0-48.0); HEMOGLOBIN 10.3 g/dL (12-16); MCH 26.2 pg (26.0-34.0); MCHC 29.9 g/dL (31.0-37.0); MCV 87.8 fL (80.0-100.0); MEAN PLATELET VOLUME 9.6 fL (7.4-10.4); PLATELET COUNT 231 10x3/uL (130-400); RBC 3.93 10x6/uL (4.00-5.40); RDW 16.5 % (11.5-14.5); WBC 25.7 10x3/uL (4.8-10.8)
[2019-08-11 05:39] LABS: ANION GAP 12.6 mmol/L (8-16); CARBON DIOXIDE 26.2 mmol/L (21.0-32.0); CREATININE - SERUM 1.6 mg/dL (0.6-1.3); PHOSPHOROUS 3.9 mg/dL (2.5-4.9); POTASSIUM - SERUM 4.8 mmol/L (3.5-5.1)
--- NOTE | 2019-08-11 07:10 | NUR ---
REPORT RECEIVED FROM CHARGE WEIGHER AND PATIENT CARE ASSUMED. PATIENT LAYING IN BED ON BACK AWAKE, ALERT AND ORIENTED X 4. PATIENT ON BIPAP PER PATIENT REQUEST CHANGED TO NC. PATIENT IS STABLE AND VSS. PATIENT DENIES ANY NEEDS OR PAIN. INITIAL ASSESSMENT COMPLETED SEE FLOWSHEET. WILL CONTINUE WITH PLAN OF CARE. SR UP X 2 BED IN LOW POSITION AND CALL LIGHT IN REACH.
[2019-08-11 09:07] LABS: LYMPHOCYTES 3 % (15-50); MONOCYTES 3 % (2-11); NEUTROPHILS 94 % (40-80); PLATELET ESTIMATE NORMAL
[2019-08-11 09:08] LABS: ANISOCYTOSIS OCC
--- NOTE | 2019-08-11 10:37 | NUR ---
PATIENT REQUESTS TO GO BACK ON BIPAP. BIPAP. PATIENT IS STABLE AND VSS. PATIENT DENEIS ANY NEEDS OR PAIN. WILL CONTINUE TO MONITOR. SR UPX 2 BED IN LOW POSITION AND CALL LIGHT IN REACH.
--- NOTE | 2019-08-11 11:30 | NUR ---
PATIENT IS STABLE AND VSS. PATIENT LAYING IN BED WITH EYES CLOSED AND BREATHING EVENLY. RE-ASSESSMENT COMPLETED. WILL CONTINUE TO MONITOR. SR UP X 2 BED IN LOW POSITION AND CALL LIGHT IN REACH.
--- NOTE | 2019-08-11 11:45 | NUR ---
PATIENT UP WITH PT AMB ON UNIT. PATIENT TOLERATED WELL. PATIENT TO BS CHAIR TO EAT LUNCH. AFTER LUNCH ORAL CARE ASSISTANCE GIVEN. PATIENT REFUSED BATH. COMPLETE LINEN CHANGE COMPLETED. WILL CONTINUE TO MONITOR. CALL LIGHT IN REACH.
--- NOTE | 2019-08-11 13:00 | NUR ---
PATIENT REQUEST BACK TO BED. PATIENT ASST TO AMBULATE TO BED. BIPAP CONTINUESW TO BE OFF. PATIENT DENIES ANY NEEDS OR PAIN. WILL CONTINUE WITH PLAN OF CARE. SR UP X 2 BED IN LOW POSITION AND CALL LIGHT IN REACH.
--- NOTE | 2019-08-11 17:13 | NUR ---
PATIENT EATING SUPPER. PATIENT IS STABLE AND VSS. PATIENT [id number] ANY NEEDS OR PAIN. WILL CONTINUE TO MONITOR. SR UP X 2 BED IN LOW POSITION AND CALL LIGHT IN REACH.
--- NOTE | 2019-08-11 18:37 | NUR ---
PATIENT RESTING QUIETLY IN BED . WILL CONTINUE TO MONITOR. SR UP X 2 BED IN LOW POSITION AND CALL LIGHT IN REACH.
--- NOTE | 2019-08-11 20:00 | NUR ---
RECIEVED REPORT FROM DAYSHIFT. PT RESTING IN BED. ALERT AND ORIENTED. NO SIGNS OF DISTRESS. BREATHING EVEN AND UNLABORED. IV SITE LT CHEST PORT DRESSING CLEAN DRY AND INTACT. NO SIGNS OF INFECTION. 5LO2 NASAL CANNULA. PT STATES NO NEEDS AT THIS TIME. CALDERON IN PLACE. IV FLUIDS AT KVO. WILL CONTINUE PLAN OF CARE. CALL LIGHT IN REACH. BED LOWERED AND LOCKED. BED RAILS UPX2.
--- NOTE | 2019-08-11 22:00 | NUR ---
PT RESTING IN BED. ALERT AND ORIENTED. NO SIGNS OF DISTRESS. BREATHING EVEN AND UNLABORED. SNACK GIVEN. WILL CONTINUE PLAN OF CARE. CALL LIGHT IN REACH. BED LOWERED AND LOCKED. BED RAILS UPX2.
[2019-08-12] VITALS (16 sets, daily range): BP systolic 125–160; BP diastolic 66–96
--- NOTE | 2019-08-12 | NUR ---
PT RESTING IN BED. EYES CLOSED. NO SIGNS OF DISTRESS. BREATHING EVEN AND UNLABORED. WILL COTNINUE PLAN OF CARE. CALL LIGHT IN REACH.
--- NOTE | 2019-08-12 02:00 | NUR ---
PT RESTING IN BED. EYES CLOSED. NO SIGNS OF DISTRESS. BREATHING EVEN AND ULABORED. VITALS STABLE. WILL CONTINUE PLAN OF CARE. CALL LIGHT IN REACH. BED LOWERED AND LOCKED.
--- NOTE | 2019-08-12 03:41 | NUR ---
PT RESTING IN BED. ALERT AND ORIENTED. NO SIGNS OF DISTRESS. BREATHING EVEN AND UNLABORED. 5LO2 NASAL CANNULA. WILL CONTINUE PLAN OF CARE. CALL LIGHT IN REACH. BED LOWERED AND LOCKED.
--- NOTE | 2019-08-12 06:00 | NUR ---
PT RESTING IN BED. EYES CLOSED. NO SIGNS OF DISTRESS. BREATHING EVEN AND UNLABORED. 5LO2 NC. VITALS STABLE. WILL CONTINUE PLAN OF CARE. CALL LIGHT IN REACH. BED LOWERED AND LOCKED.
--- NOTE | 2019-08-12 06:30 | NUR ---
I have reviewed this patient and I concur with the Shift Assessment completed by the Licensed Practical Nurse today this shift.
--- NOTE | 2019-08-12 07:00 | NUR ---
REC'D REPORT AND RESUMED CARE, SLEEPING ARROUSABLE TO VERBAL STIMULI, O2 VIS NC AT 5L, SAT 92%, OTHER VSS, DENIES PAIN AT THIS TIME, ORIENTED TIMES 4, LEFT CHEST INFUSA PORT WITH NS INFUSING AT 5 CC/HR, CALDERON TO GRAVITY WITH CLOUDY DRAINAGE TO BAG, REFUSES SCD'S, ASSESSMENT COMPLETED PER FLOWSHEET, REPOSITIONED UP AND TO BACKE WITH HEELS FLOATED, VOICES NO NEEDS AT THIS TIME
[2019-08-12 07:04] LABS: BASOPHILS 0 % (0-2); EOSINOPHILS 0 % (0-7); HEMATOCRIT 33.8 % (36.0-48.0); HEMOGLOBIN 10.2 g/dL (12-16); IMMATURE GRANULOCYTES 0.8 % (0-5); LYMPHOCYTES 2.8 % (15-50); MCH 26.1 pg (26.0-34.0); MCHC 30.2 g/dL (31.0-37.0); MCV 86.4 fL (80.0-100.0); MEAN PLATELET VOLUME 9.2 fL (7.4-10.4); MONOCYTES 1.6 % (2-11); NEUTROPHILS 94.8 % (40-80); PLATELET COUNT 197 10x3/uL (130-400); RBC 3.91 10x6/uL (4.00-5.40); RDW 16.6 % (11.5-14.5); WBC 20.5 10x3/uL (4.8-10.8)
[2019-08-12 07:08] LABS: ANION GAP 10.4 mmol/L (8-16); CALCIUM 8.1 mg/dL (8.5-10.1); CARBON DIOXIDE 27.5 mmol/L (21.0-32.0); CREATININE - SERUM 1.3 mg/dL (0.6-1.3); POTASSIUM - SERUM 4.9 mmol/L (3.5-5.1)
--- NOTE | 2019-08-12 09:33 | NUR ---
Nutrition follow-up: Diet: ADA consistent CHO with Glucerna Shake TID PO intake has improved to ~75-100% of last 5 meals BIPAP weaning at this time Labs reviewed wt: 146# RDN following.
--- NOTE | 2019-08-12 10:20 | NUR ---
pt/ot at bedside, patient ambulated 60 ft with rest periods, back to room up in chair, o2 sat 80"s placed bipap 40% fio2, 07/12
--- NOTE | 2019-08-12 10:53 | NUR ---
BIPAP ALARMING, PULLED OFF BY PATIENT, SAT 86%, REPLACED, EDUCATED ON NEED TO KEEP ON AT THIS TIME
--- NOTE | 2019-08-12 11:19 | NUR ---
CALLED TO ROOM C/O PAIN 5/10 IN LEFT SIDE AND ANXIOUSNESS, TYLENOL 650MG AND XANAX 1 MG GIVEN PER MAR ORDER FLOWSHEET
--- NOTE | 2019-08-12 12:45 | NUR ---
CHG BATH AND LINEN CHANGE COMPLETED, MEPLEX DRESSING NOTED TO BUTTOCKS, CDI DYSNEA ON EXERTION
--- NOTE | 2019-08-12 14:23 | NUR ---
OT NOTE: PT COMPLETED SIT TO STAND WITH CGA. PT COMPLETED ADL MOB WITH MIN A. PT OCMPLETED UE AROM AXS. PT COMPLETED FACE WASH WITH SETUP. [phone] THANK YOU,CHUCKY LAFLEUR
--- NOTE | 2019-08-12 15:05 | NUR ---
TRANSFERRED TO 2237 VIA WHEELCHAIR, AAO, PRIMARY NURSE CHANDRAKANT AT BEDSIDE
--- NOTE | 2019-08-12 15:18 | NUR ---
RECEIVED PATIENT FROM ICU. ALERT AND ORIENTED. NO C/O PAIN. NO S/S OF ACUTE DISTRESS NOTED. INFUSAPORT TO LEFT CHEST, SL. SITE PATENT WITHOUT REDNESS OR SWELLING. VITALS STABLE. REFUSED SCDS. UP WITH ASSIST. BIPAP PRN. ON 5L O2, NC. HAD SM BM THIS AM. DENIES ANY NEEDS AT THIS TIME. CALL LIGHT IN REACH. FALL PRECAUTIONS IN PLACE. WILL CONTINUE TO MONITOR.
--- NOTE | 2019-08-12 18:20 | NUR ---
ALERT AND ORIENTED, EATING SUPPER. NO C/O PAIN. NO S/S OF ACUTE DISTRESS NOTED. DENIES ANY NEEDS AT THIS TIME. CALL LIGHT IN REACH. WILL CONTINUE TO MONITOR.
--- NOTE | 2019-08-12 20:00 | NUR ---
LYING IN BED. ALERT AND ORIENTED X4. RESP IRREG. SOB NOTED. BIPAP ON NOW. OTHERWISE HAS O2 @ 5L/NC. TREMORS NOTED. CALDERON CATH PATENT AND DRAINING CLEAR YELLOW URINE. EDEMA NOTED TO BLE. LT CHESTWALL INFUSAPORT IS SALINE LOCKED. GEN WEAKNESS NOTED. SR ELEVATED X2. CL IN REACH.
--- NOTE | 2019-08-13 00:11 | NUR ---
FSBS 77. PT GIVEN SNACK AND JUICE AT THIS TIME. NO DISTRESS. O2 @ 5LNC. CL IN REACH.
[2019-08-13 04:00] VITALS: BP 164/88
--- NOTE | 2019-08-13 04:30 | NUR ---
FSBS 73. GIVEN SNACK AT THIS TIME. ASYMPTOMATIC. CL IN REACH.
[2019-08-13 04:54] LABS: BASOPHILS 0 % (0-2); EOSINOPHILS 0 % (0-7); HEMATOCRIT 34.5 % (36.0-48.0); HEMOGLOBIN 10.6 g/dL (12-16); IMMATURE GRANULOCYTES 0.7 % (0-5); LYMPHOCYTES 2.4 % (15-50); MCH 26.4 pg (26.0-34.0); MCHC 30.7 g/dL (31.0-37.0); MEAN PLATELET VOLUME 8.9 fL (7.4-10.4); MONOCYTES 0.7 % (2-11); NEUTROPHILS 96.2 % (40-80); PLATELET COUNT 205 10x3/uL (130-400); RBC 4.01 10x6/uL (4.00-5.40); RDW 16.6 % (11.5-14.5)
--- NOTE | 2019-08-13 05:14 | NUR ---
MEDICATED WITH XANAX FOR C/O ANXIETY. CL IN REACH. O2 @ 5L/NC
[2019-08-13 05:21] LABS: ANION GAP 14.4 mmol/L (8-16); CALCIUM 8.2 mg/dL (8.5-10.1); CARBON DIOXIDE 23.9 mmol/L (21.0-32.0); CREATININE - SERUM 1.6 mg/dL (0.6-1.3); POTASSIUM - SERUM 5.3 mmol/L (3.5-5.1)
--- NOTE | 2019-08-13 07:15 | NUR ---
PT RESTING IN BED WITH EYES CLOSED, EASILY AROUSED TO SPEECH. LEFT CHEST PORT CURRENTLY SL. CURRENTLY RCVING 5L VIA NC. NO S/S OF DISTRESS CURRENTLY, DENIES NEEDS, WILL CONT TO MONITOR.
--- NOTE | 2019-08-13 08:09 | NUR ---
FSBS 135, NO TREATMENT NEEDED.
[2019-08-13 09:06] VITALS: BP 170/94
--- NOTE | 2019-08-13 10:23 | NUR ---
CVL DRESSING CHANGE COMPLETED.
[2019-08-13 12:49] VITALS: BP 158/88
--- NOTE | 2019-08-13 13:23 | NUR ---
OT NOTE: PT MORE LETHARGIC TODAY. PRACTICED ADLS INCLUDING SIMPLE GROOMING WITH SET UP; ATTEMPTED TO BREANN SOCKS, HOWEVER, PT UNABLE TO PERFORM TODAY. INCREASED SOB WITH ACTIVITIES. BED MOB TO INCLUDE SUPINE TO SIT WITH MOD ASSIST TODAY. SITTING BALANCE ONLY FAIR; CONT TO LEAN TO L SIDE EVEN WITH VERBAL AND TACTILE CUES; MIN ASSIST WITH SIT TO STAND; GURWINDER FALL, OTR/L [phone]
--- NOTE | 2019-08-13 14:55 | NUR ---
OT NOTE: PT COMPLETED SUPINE TO SIT WITH MIN A. PT COMPLETED EOB SITTING WITH CGA. PT COMPLETED HAIR GROOMING WITH MIN A AT EOB . PT COMPLETED FACE WASH WITH CGA AT EOB. [phone] THANK YOU,CHUCKY LAFLEUR
[2019-08-13 16:16] VITALS: BP 151/82
[2019-08-13 20:00] VITALS: BP 159/87
--- NOTE | 2019-08-13 21:40 | NUR ---
PT LYING IN BED AWAKE ALERT AND ORIENTED x4. NO SIGNS OR SYMPOTMS OF DISTRESS NOTED. RESPIRATIONS EVEN AND UNLABORED. PRN XANAX GIVEN FOR ANXIETY. NO COMPLAINTS OF PAIN AT THIS TIME. PT WEARING BI-PAP. PT ENCOURAGED TO CALL FOR HELP WHEN NEEDED AND WHEN GETTING OUT OF BED. CALL LIGHT WITH IN REACH. WILL CONTINUE TO MONITOR
--- NOTE | 2019-08-13 21:45 | NUR ---
PRN XANAX GIVEN FOR ANIEXTY PER PT REQUEST. NO SIGNS OF DISTRESS NOTED. PT ENCOURAGED TO CALL FOR HELP WHEN GETIING IN AND OUT OF BED. BED ALARM ON AND ACTIVE. CALL LIGHT WITH IN REACH AND BED IS IN LOWEST POSITION. WILL CONTINUE TO MONITOR
--- NOTE | 2019-08-14 03:10 | NUR ---
PT LYING IN BED RESTING WITH EYES CLOSED. NO COMPLAINTS AT THIS TIME. CALL LIGHT WITH IN REACH. WILL CONTIUE TO MONITOR
[2019-08-14 04:00] VITALS: BP 156/90
--- NOTE | 2019-08-14 04:23 | NUR ---
I have reviewed this patient and I concur with the Shift Assessment completed by the Licensed Practical Nurse today this shift.
--- NOTE | 2019-08-14 05:17 | NUR ---
I have reviewed this patient and I concur with the Shift Assessment completed by the Licensed Practical Nurse today this shift.
--- NOTE | 2019-08-14 07:05 | NUR ---
ALERT AND ORIENTED. NO C/O PAIN. NO S/S OF ACUTE DISTRESS NOTED. UP WITH ASSIST. ON 5L O2, NC. LEFT CHEST INFUSAPORT, SL. SITE PATENT WITHOUT REDNESS OR SWELLING. FSBS Q4 HOURS. CALDERON CATHETER PRESENT. BED ALARM ON. REFUSED SCDS. DENIES ANY NEEDS AT THIS TIME. CALL LIGHT IN REACH. WILL CONTINUE TO MONITOR.
[2019-08-14 07:08] LABS: ANION GAP 13.4 mmol/L (8-16); CALCIUM 8.1 mg/dL (8.5-10.1); CARBON DIOXIDE 25.5 mmol/L (21.0-32.0); CREATININE - SERUM 1.5 mg/dL (0.6-1.3); POTASSIUM - SERUM 4.9 mmol/L (3.5-5.1)
[2019-08-14 07:55] LABS: HEMATOCRIT 33.5 % (36.0-48.0); HEMOGLOBIN 10.3 g/dL (12-16); MCH 26.5 pg (26.0-34.0); MCHC 30.7 g/dL (31.0-37.0); MCV 86.1 fL (80.0-100.0); MEAN PLATELET VOLUME 9.9 fL (7.4-10.4); PLATELET COUNT 220 10x3/uL (130-400); RBC 3.89 10x6/uL (4.00-5.40); RDW 16.6 % (11.5-14.5)
[2019-08-14 08:24] VITALS: BP 152/86
[2019-08-14 09:29] LABS: LYMPHOCYTES 6 % (15-50); MONOCYTES 5 % (2-11); NEUTROPHILS 89 % (40-80); PLATELET ESTIMATE NORMAL
--- NOTE | 2019-08-14 09:34 | NUR ---
I have reviewed this patient and I concur with the Shift Assessment completed by the Licensed Practical Nurse today this shift.
--- NOTE | 2019-08-14 10:39 | NUR ---
OT NOTE: PT ON BI PAP IN AM; DISCUSSED WITH NURSING AND DECIDED TO GET PT UP TO CHAIR AND LEAVE BI PAP ON. BED MOB WITH MOD ASSIST; SITTING ON EOB WITHOUT ASSIST; ABLE TO PERFORM SEVERAL GROOMING ACT WITH BIPAP TEMPORARILY REMOVED. TRANSFERS WITH MIN ASSIST. GURWINDER FALL, OTR/L [phone]
--- NOTE | 2019-08-14 10:40 | NUR ---
Rehab Note- Received call from [facility] with [facility] and stated the patient has been approved for an inpatient acute rehab stay, Auth #[id number]. F/U will be with Robby Mccracken [phone] [id number], fax [phone]. Informed IDT meeting that the patient has been approved. Will follow at this time for admit. THank you for this referral! Ericka Inman RN Clinical Liaison, [facility]
--- NOTE | 2019-08-14 11:25 | EC ---
PATIENT:TIM GARCIA DATE OF SERVICE: 07/28/19 SEX: F MEDICAL RECORD: [id number] DATE OF : [birth year] LOCATION:[facility] AGE OF PATIENT: 69 ADMISSION DATE: 07/28/19 REFERRING PHYSICIAN: INTERPRETING PHYSICIAN: MELVI DELGADILLO MD ECHOCARDIOGRAM REPORT ECHO CHARGES 5 ECHO LIMITED Date: 07/29/19 CLINICAL DIAGNOSIS: CHF/CHEST PAIN ECHOCARDIOGRAPHIC MEASUREMENTS (adult normal given) AC root (d.<3.7cm) cm LV Septum d (<1.2 cm> 1.4 cm Valve Excursion cm LV Septum (systole) 1.6 cm Left Atria (s.<4.0cm> 3.6 cm LVPW d(<1.2cm) 2.0 cm RV (d.<2.3cm) cm LVPW (sytole) 2.1 cm LV diastole(<5.6CM) 5.1 cm MV E-F(>70mm/sec) cm LV systole 3.4 cm LVOT Diameter cm MV exc.(>10mm) cm Est.ejection fraction (50-75%) % DOPPLER: LVIT cm/sec A cm/sec E cm/sec LA cm/sec RVSP mmHg LVOT cm/sec AOP1/2T m/s Asc. Ao cm/sec RVOT cm/sec RA cm/sec PA cm/sec AV Gradient Peak mmHg AV Mean mmHg AV Area cm MV Gradient Peak mmHg MV Mean mmHg MV Area cm COMMENTS: Oyster Culturist: Deep ARIZMENDI Central Office Installer: 1 Dr. Delgadillo TAPE# PACS Pericardial Effusion N DATE OF SERVICE: FINDINGS: 1. Left ventricular chamber size is within normal limits. Left ventricular systolic function is normal at 55% to 60%. 2. Left atrium, right atrium, and right ventricular chamber sizes are within normal limits. 3. Valvular structures have normal structure and motion. 4. Doppler interrogation reveals no significant valvular insufficiency or stenosis. ECHOCARDIOGRAM REPORT [id number] TIM GARCIA 5. No evidence of pericardial effusion or left ventricular thrombus. TRANSINT:[id number] Voice Confirmation ID: [id number] DOCUMENT ID: [id number] MELVI DELGADILLO MD at 1123 CC: [id number] DICTATION DATE: 07/30/19 0931 LABORATORY CHEMIST: 07/30/19 0942 ADM IN [facility] [address] [facility]
[2019-08-14 12:10] VITALS: BP 154/90
--- NOTE | 2019-08-14 12:35 | NUR ---
RECEIVED PT FROM
--- NOTE | 2019-08-14 13:50 | NUR ---
PT IS RESTING COMFORTABLY IN BED. REQUESTED CUP OF ICE, PROVIDED PROMPTLY. DENIES ANY OTHER NEEDS. WILL CONTINUE TO MONITOR.
--- NOTE | 2019-08-14 14:23 | MORECARE ---
CASE MANAGEMENT DISCHARGE SUMMARY PATIENT: TIM GARCIA UNIT: [id number] ADM DATE: 07/28/19 AGE: 69 : [birth year] SEX: F ROOM/BED: D.2237 AUTHOR: CARLOS ENRIQUE,DOC PHYSICIAN: REFERRING PHYSICIAN: MARLENI GOODMAN MD DATE OF SERVICE: 08/14/19 Discharge Plan Patient Name: TIM GARCIA Facility: [facility]:[place] : 1950 Planned Disposition: Inpatient Rehab Anticipated Discharge Date: 07/31/19 Discharge Date: Expected LOS: 3 Initial Reviewer: [email or web address] Initial Review Date: 07/29/2019 Generated: 08/14/19 3:23 pm Comments DCP- Discharge Planning Updated by [id number]: Mis Desouza on 08/14/19 1:[address] Patient Name: TIM GARCIA Encounter No: [id number] : 1950 Primary Insurance: [facility] [employer] Anticipated DC Date: 07-31-2019 Planned Disposition: Inpatient Rehab External Planned Provider: : DCP follow-up note: Patient in agreement with discharge plan. No changes to plan. Discharging to inpatient rehab today if ok with Dr. Gomez. Case management will follow and assist as needed. Mis Desouza DCP- Discharge Planning Updated by [id number]: Trista Francois on 08/05/19 6:[address] Received a copy of POA paperwork and placed it in patient chart. CM will continue to follow and assist as needed with discharge planning / needs. DCP- Discharge Planning Updated by [email or web address]: Trista Francois on 08/04/19 3:[address] Nursing notified CM that patient's niece listed on contact list Gin Rodriguez informed nursing that she was patient's POA and she did not want patient transferred. Gin is suppose to be bringing up POA paperwork to be placed on chart. CM will continue to follow and assist as needed with discharge planning / needs. DCP- Discharge Planning Updated by [id number]: Trista Francois on 08/04/19 2:[address] CM received a call back from transfer center she stated that [facility] - ICU and MED/SURG is at MAX capacity at this time. CM let charge nurse know status. CM will continue to follow and assist as needed with discharge planning / needs. DCP- Discharge Planning Updated by [id number]: Trista Francois on 08/04/19 12:[address] CM received a request from Dr. Salmon to contact transfer center because patient's son is demanding patient to be transferred. Patient is confused and unable tell CM if she would like to transfer. CM contacted transfer center and faxed records. Transfer center stated they would call back to Dr. Salmon once they have an accepting physician. CM will continue to follow and assist as needed with discharge planning/ needs. DCP- Discharge Planning Updated by [id number]: Haleigh Denise on 07/31/19 1:[address] Patient Name: TIM GARCIA Encounter No: [id number] : 1950 Primary Insurance: [facility] [employer] Anticipated DC Date: 07-31-2019 Planned Disposition: Inpatient Rehab External Planned Provider: [facility] DCP follow-up note: CM SPOKE TO CLARK OF INPATIENT REHAB, THEY PLAN TO ACCEPT PT TODAY FOR REHAB AFTER PT'S RENAL ULTRASOUND; THEY HAVE RECEIVED INSURANCE AUTHORIZATION. PT NOTIFIED, IN AGREEMENT WITH DISCHARGE TO INPATIENT REHAB. PT STATES SHE IS NOT READY TO DISCHARGE HOME DUE TO HAVING BREATHING TROUBLE BUT IS NOT HAPPY WITH HER CARE. CM EXPLAINED INPATIENT REHAB AND SERVICES IN REHAB. PT STATES SHE WILL GO AND TRY IT OUT. PT'S SON CALLED PT IN ROOM, PT ASKED CM TO SPEAK TO HER SON. SON INFORMED CM THAT HE WAS THINKING OF COMING TO TAKE PT HOME, CM EXPLAINED REHAB APPROVAL BY INSURANCE AND THAT REHAB WILL TAKE PT TODAY. PT'S SON SEEMED TO ALSO BE IN AGREEMENT AND STATES IT HIS MOTHERS CHOICE. CM SPOKE TO PT WHO IS IN AGREEMENT WITH REHAB. PT ASKED THAT THE EDUCATION SPEC NOT GIVE HER ANOTHER MED NEB TREATMENT NOW BECAUSE IT IS WEARING HER OUT. CM PROVIDED PT WITH WIRE MILL OPERATOR NUMBER TO CALL IF HER CARE WAS BAD, PT STATES THAT HER NURSE MANDI IS CARRYING THE WHOLE UNIT. CM ALSO ADVISED THAT CM WILL HAVE UNIT BAG BUILDER SEE HER REGARDING HER CARE COMPLAINTS. CM NOTIFIED UNIT NURSE ROLLER MAN GIN. SEBASTIEN ROSS NOTIFIED. PT CAN DISCHARGE TO INPATIENT REHAB ONCE RENAL ULTRASOUND IS COMPLETED. [facility] TO CONTACT MED 2 NURSE WITH ROOM NUMBER WHEN READY TO ACCEPT PT AND NURSE REPORT. Haleigh Sampson, CASE MANAGEMENT Appended by Haleigh Sampson on 07/31/2019 15:[address] RO[address] DESIGNER: CM RECEIVED MESSAGE FROM SEBASTIEN ROSS, PT IS NOT STABLE FOR DISCHARGE TO INPATIENT REHAB AT THIS TIME. CM NOTIFIED CLARK OF [facility]. HALEIGH SAMPSON, CASE MANAGEMENT DCP- Discharge Planning Updated by [id number]: Mis Desouza on 07/29/19 12:[address] Patient Name: TIM GARCIA Admission Status: ER Accout number: [id number] Admission Date: 07-28-2019 : 1950 Admission Diagnosis: Attending: CASANDRA GOODMAN Current LOS: 1 Anticipated DC Date: Planned Disposition: Inpatient Rehab Primary Insurance: [facility] [employer] Discharge Planning Comments: CM met with patient to complete initial dc planning assessment. CM educated patient on the CM role and verbal consent given by patient to complete assessment. Patient lives at home alone, States her son lives on the same property. CM discussed availability of home health, rehab services, and medical equipment. Patient states she needs to get stronger and would like a referral to inpatient rehab at [facility]. I informed her that her insurance would need to authorize her to go first. She states her second choice is [facility]. I asked her if she would consider SNF if they did not authorize inpatient rehab and she states "Let's cross that bridge later." CM will continue to follow and will assist as needed with dc plans/needs. Cargo Surveyor: Mis Desouza DCPIA - Discharge Planning Initial Assessment Updated by [id number]: Mis Desouza on 07/29/19 2:50 pm * Is the patient Alert and Oriented? Yes * How many steps to enter\\exit or inside your home? 5/0 * PCP Dr. Deal * Preadmission Environment Home Alone * ADLs Partial Dependent * Partial ADLs (Assistance needed) Ambulation * Equipment Bedside Commode Nebulizer Other Oxygen Shower Chair Walker * Other Equipment Portable oxygen * List name and contact numbers for known caregivers / representatives who currently or will assist patient after discharge: Hosea Arshad - sharita - [phone] (message phone) * Verbal permission to speak to the caregivers and representatives has been obtained from the patient. Yes * Community resources currently utilized Home Health * Please name any agencies selected above. [facility] * Additional services required to return to the preadmission environment? No * Can the patient safely return to the preadmission environment? Yes * Has this patient been hospitalized within the prior 30 days at any hospital? No Coverage Notice Reviewer: [email or web address] Naty Desouza Notice Issued Date-Time: 07/29/2019 14:56 Notice Type: Patient Choice Letter Notice Delivered To: Patient Relationship to Patient: Self Silk Snapper Name: Delivery Method: HAND - Hand Delivered Kinza Days: Prior Verbal Notification: Recipient Understood Notice: Yes Recipient Signature: Yes Med Rec Note Co-signed by Attending: Coverage Notice Comment: EMILIA for 1)[facility] inpatient rehab 2) [facility] Reviewer: [email or web address] - Haleigh Sampson Notice Issued Date-Time: 07/31/2019 14:15 Notice Type: IM Discharge Notice Notice Delivered To: Patient Relationship to Patient: Silk Snapper Name: Delivery Method: HAND - Hand Delivered Kinza Days: Prior Verbal Notification: Recipient Understood Notice: Yes Recipient Signature: Yes Med Rec Note Co-signed by Attending: Coverage Notice Comment: Reviewer: [email or web address] Naty Desouza Notice Issued Date-Time: 08/14/2019 14:09 Notice Type: IM Discharge Notice Notice Delivered To: Patient Relationship to Patient: Self Silk Snapper Name: Delivery Method: HAND - Hand Delivered Kinza Days: Prior Verbal Notification: Recipient Understood Notice: Yes Recipient Signature: Yes Med Rec Note Co-signed by Attending: Coverage Notice Comment: IMM explained, signed, given, copy placed in MR Last DP export: 08/05/19 6:55 p Patient Name: TIM GARCIA Page [phone] at 1423 All edits/amendments must be made on the electronic document DICTATION DATE: 08/14/19 1423 LAUNCH MANAGER: YOVANA 08/14/19 1423 RPT#: [id number] DC DATE: STATUS: ADM IN [facility] [address] [place] [address] END OF REPORT
--- NOTE | 2019-08-14 14:47 | NUR ---
ADMINISTERED MEDICATION AT THIS TIME, NO TROUBLE SWALLOWING. HUNG ANTIBIOTICS, NO COMMENT OF BURNING OR DISCOMFORT. PROVIDED PT WITH TOOTHBRUSH UPON REQUEST. RESTING COMFORTABLY IN BED. DENIES ANY NEEDS AT THIS TIME. WILL CONTINUE TO MONITOR.
--- NOTE | 2019-08-14 15:10 | MORECARE ---
CASE MANAGEMENT DISCHARGE SUMMARY PATIENT: TIM GARCIA UNIT: [id number] ADM DATE: 07/28/19 AGE: 69 : 54 SEX: F ROOM/BED: D.2237 AUTHOR: CARLOS ENRIQUE,DOC PHYSICIAN: REFERRING PHYSICIAN: MARLENI GOODMAN MD DATE OF SERVICE: 08/14/19 Discharge Plan Patient Name: TIM GARCIA Facility: [facility]:[place] : 1950 Planned Disposition: Inpatient Rehab Anticipated Discharge Date: 07/31/19 Discharge Date: Expected LOS: 3 Initial Reviewer: [id number] Initial Review Date: 07/29/2019 Generated: 08/14/19 4:10 pm Comments DCP- Discharge Planning Updated by [id number]: Mis Desouza on 08/14/19 2:[address] Gomez states patient should wait until Saturday to discharge to inpatient rehab, I notified Shaheed in inpatient rehab. DCP- Discharge Planning Updated by [id number]: Mis Desouza on 08/14/19 1:[address] Patient Name: TIM GARCIA Encounter No: [id number] : 1950 Primary Insurance: [facility] [employer] Anticipated DC Date: 07-31-2019 Planned Disposition: Inpatient Rehab External Planned Provider: : DCP follow-up note: Patient in agreement with discharge plan. No changes to plan. Discharging to inpatient rehab today if ok with Dr. Gomez. Case management will follow and assist as needed. Mis Desouza DCP- Discharge Planning Updated by [id number]: Trista Francois on 08/05/19 6:[address] Received a copy of POA paperwork and placed it in patient chart. CM will continue to follow and assist as needed with discharge planning / needs. DCP- Discharge Planning Updated by [id number]: Trista Francois on 08/04/19 3:[address] Nursing notified CM that patient's niece listed on contact list Gin Rodriguez informed nursing that she was patient's POA and she did not want patient transferred. Gin is suppose to be bringing up POA paperwork to be placed on chart. CM will continue to follow and assist as needed with discharge planning / needs. DCP- Discharge Planning Updated by [id number]: Trista Francois on 08/04/19 2:[address] CM received a call back from transfer center she stated that [facility] - ICU and MED/SURG is at MAX capacity at this time. CM let charge nurse know status. CM will continue to follow and assist as needed with discharge planning / needs. DCP- Discharge Planning Updated by [id number]: Trista Francois on 08/04/19 12:[address] CM received a request from Dr. Salmon to contact transfer center because patient's son is demanding patient to be transferred. Patient is confused and unable tell CM if she would like to transfer. CM contacted transfer center and faxed records. Transfer center stated they would call back to Dr. Salmon once they have an accepting physician. CM will continue to follow and assist as needed with discharge planning/ needs. DCP- Discharge Planning Updated by [id number]: Haleigh Sampson on 07/31/19 1:[address] Patient Name: TIM GARCIA Encounter No: [id number] : 1950 Primary Insurance: [facility] [employer] Anticipated DC Date: 07-31-2019 Planned Disposition: Inpatient Rehab External Planned Provider: [facility] INPATIENT REHAB DCP follow-up note: CM SPOKE TO [facility] OF INPATIENT REHAB, THEY PLAN TO ACCEPT PT TODAY FOR REHAB AFTER PT'S RENAL ULTRASOUND; THEY HAVE RECEIVED INSURANCE AUTHORIZATION. PT NOTIFIED, IN AGREEMENT WITH DISCHARGE TO INPATIENT REHAB. PT STATES SHE IS NOT READY TO DISCHARGE HOME DUE TO HAVING BREATHING TROUBLE BUT IS NOT HAPPY WITH HER CARE. CM EXPLAINED INPATIENT REHAB AND SERVICES IN REHAB. PT STATES SHE WILL GO AND TRY IT OUT. PT'S SON CALLED PT IN ROOM, PT ASKED CM TO SPEAK TO HER SON. SON INFORMED CM THAT HE WAS THINKING OF COMING TO TAKE PT HOME, CM EXPLAINED REHAB APPROVAL BY INSURANCE AND THAT REHAB WILL TAKE PT TODAY. PT'S SON SEEMED TO ALSO BE IN AGREEMENT AND STATES IT HIS MOTHERS CHOICE. CM SPOKE TO PT WHO IS IN AGREEMENT WITH REHAB. PT ASKED THAT THE WAREHOUSE GENERAL LABORER NOT GIVE HER ANOTHER MED NEB TREATMENT NOW BECAUSE IT IS WEARING HER OUT. CM PROVIDED PT WITH FOOD SERVICES MANAGER NUMBER TO CALL IF HER CARE WAS BAD, PT STATES THAT HER NURSE MANDI IS CARRYING THE WHOLE UNIT. CM ALSO ADVISED THAT CM WILL HAVE UNIT MENAGERIE SUPERINTENDENT SEE HER REGARDING HER CARE COMPLAINTS. CM NOTIFIED UNIT NURSE EDUCATION OFFICER GIN. SEBASTIEN ROSS NOTIFIED. PT CAN DISCHARGE TO INPATIENT REHAB ONCE RENAL ULTRASOUND IS COMPLETED. [facility] INPATIENT REHAB TO CONTACT MED 2 NURSE WITH ROOM NUMBER WHEN READY TO ACCEPT PT AND NURSE REPORT. Haleigh Sampson, CASE MANAGEMENT Appended by Haleigh Sampson on 07/31/2019 15:20 SWITCHBOARD CLERK: CM RECEIVED MESSAGE FROM SEBASTIEN ROSS, PT IS NOT STABLE FOR DISCHARGE TO INPATIENT REHAB AT THIS TIME. CM NOTIFIED CLARK OF [facility] INPATIENT REHAB. HALEIGH SAMPSON, CASE MANAGEMENT DCP- Discharge Planning Updated by [id number]: Mis Desouza on 07/29/19 12:[address] Patient Name: TIM GARCIA Admission Status: ER Accout number: [id number] Admission Date: 07-28-2019 : 1950 Admission Diagnosis: Attending: CASANDRA GOODMAN Current LOS: 1 Anticipated DC Date: Planned Disposition: Inpatient Rehab Primary Insurance: [facility] [employer] Discharge Planning Comments: CM met with patient to complete initial dc planning assessment. CM educated patient on the CM role and verbal consent given by patient to complete assessment. Patient lives at home alone, States her son lives on the same property. CM discussed availability of home health, rehab services, and medical equipment. Patient states she needs to get stronger and would like a referral to inpatient rehab at [facility]. I informed her that her insurance would need to authorize her to go first. She states her second choice is [facility]. I asked her if she would consider SNF if they did not authorize inpatient rehab and she states "Let's cross that bridge later." CM will continue to follow and will assist as needed with dc plans/needs. Loan Secretary: Mis Desouza DCPIA - Discharge Planning Initial Assessment Updated by [id number]: Mis Desouza on 07/29/19 2:50 pm * Is the patient Alert and Oriented? Yes * How many steps to enter\\exit or inside your home? 5/0 * PCP Dr. Deal * Preadmission Environment Home Alone * ADLs Partial Dependent * Partial ADLs (Assistance needed) Ambulation * Equipment Bedside Commode Nebulizer Other Oxygen Shower Chair Walker * Other Equipment Portable oxygen * List name and contact numbers for known caregivers / representatives who currently or will assist patient after discharge: Hosea sheriff - [phone] (message phone) * Verbal permission to speak to the caregivers and representatives has been obtained from the patient. Yes * Community resources currently utilized Home Health * Please name any agencies selected above. [facility] * Additional services required to return to the preadmission environment? No * Can the patient safely return to the preadmission environment? Yes * Has this patient been hospitalized within the prior 30 days at any hospital? No Coverage Notice Reviewer: [id number] Naty Desouza Notice Issued Date-Time: 07/29/2019 14:56 Notice Type: Patient Choice Letter Notice Delivered To: Patient Relationship to Patient: Self Process Laboratory Specialist Name: Delivery Method: HAND - Hand Delivered Kinza Days: Prior Verbal Notification: Recipient Understood Notice: Yes Recipient Signature: Yes Med Rec Note Co-signed by Attending: Coverage Notice Comment: EMILIA for 1)[facility] inpatient rehab 2) [facility] Reviewer: [id number] Naty Sampson Notice Issued Date-Time: 07/31/2019 14:15 Notice Type: IM Discharge Notice Notice Delivered To: Patient Relationship to Patient: Process Laboratory Specialist Name: Delivery Method: HAND - Hand Delivered Kinza Days: Prior Verbal Notification: Recipient Understood Notice: Yes Recipient Signature: Yes Med Rec Note Co-signed by Attending: Coverage Notice Comment: Reviewer: [id number] Desouza Notice Issued Date-Time: 08/14/2019 14:09 Notice Type: IM Discharge Notice Notice Delivered To: Patient Relationship to Patient: Self Process Laboratory Specialist Name: Delivery Method: HAND - Hand Delivered Kinza Days: Prior Verbal Notification: Recipient Understood Notice: Yes Recipient Signature: Yes Med Rec Note Co-signed by Attending: Coverage Notice Comment: IMM explained, signed, given, copy placed in MR Last DP export: 08/14/19 1:23 p Patient Name: TIM GARCIA Page [id number] at 1510 All edits/amendments must be made on the electronic document DICTATION DATE: 08/14/19 1510 GENERAL MILLING SUPERINTENDENT: YOVANA 08/14/19 151 RPT#: [id number] DC DATE: STATUS: ADM IN [facility] [address] [place] [address] END OF REPORT
--- NOTE | 2019-08-14 15:22 | NUR ---
PT IV ANTIBIOTIC INFUSION COMPLETE, DISCONNECTED PT FROM IV PUMP. RESTING COMFORTABLY IN BED. DENIES ANY NEEDS AT THIS TIME. WILL CONTINUE TO MONITOR.
--- NOTE | 2019-08-14 16:15 | NUR ---
ADMINSITERED MEDICATION NO DIFFICULTY SWALLOWING. ADMINISTERED 8 UNITS OF HUMALOG PER SLIDINNG SCALE FOR BLOOD SUGAR OF 186. DENIES ANY NEEDS. REPORT GIVEN TO NURSE.
[2019-08-14 16:35] VITALS: BP 131/89
[2019-08-14 20:00] VITALS: BP 147/93
--- NOTE | 2019-08-14 21:17 | NUR ---
LYING QUTILETY WITH NO DISTRESS NOTED. RESP EVEN AND UNALBORED. NO DISTRESS NOTED.SL TO LEFT PORT INTACT WITHOUT REDENSSS OR EDEMA NOTED. CL IN REACH
[2019-08-15] VITALS: BP 144/85
--- NOTE | 2019-08-15 02:19 | NUR ---
I have reviewed this patient and I concur with the Shift Assessment completed by the Licensed Practical Nurse today this shift.
[2019-08-15 04:00] VITALS: BP 141/73
[2019-08-15 06:33] LABS: WBC 24.9 10x3/uL (4.8-10.8)
[2019-08-15 06:34] LABS: BASOPHILS 0 % (0-2); EOSINOPHILS 0.1 % (0-7); HEMATOCRIT 32.9 % (36.0-48.0); IMMATURE GRANULOCYTES 0.4 % (0-5); LYMPHOCYTES 6.4 % (15-50); MCHC 30.4 g/dL (31.0-37.0); MCV 85.7 fL (80.0-100.0); MEAN PLATELET VOLUME 9.3 fL (7.4-10.4); MONOCYTES 2.1 % (2-11); PLATELET COUNT 190 10x3/uL (130-400); RBC 3.84 10x6/uL (4.00-5.40); RDW 16.5 % (11.5-14.5)
[2019-08-15 06:43] LABS: ANION GAP 11.9 mmol/L (8-16); CALCIUM 7.9 mg/dL (8.5-10.1); CARBON DIOXIDE 24.6 mmol/L (21.0-32.0); CREATININE - SERUM 1.4 mg/dL (0.6-1.3); POTASSIUM - SERUM 4.5 mmol/L (3.5-5.1)
--- NOTE | 2019-08-15 07:51 | NUR ---
PT RESTING IN BED WITH EYES CLOSED, BIPAP MACHINE ON. LAB CALLED AND REPORTED BLOOD GLUCOSE OF 47. PROVIDED PT WITH DIDI CRACKERS AND ORANGE JUICE TO HELP CORRECT LOW SUGAR. DENIES ANY NEEDS AT THIS TIME. WILL CONTINUE TO MONITOR.
--- NOTE | 2019-08-15 08:07 | NUR ---
PT LYING IN BED SLEEPING WITH BIPAP STILL ON, NO S/S OF DISTRESS, PT EASILY AWAKENED , CL IN REACH CONTINUE WITH PLAN OF CARE
--- NOTE | 2019-08-15 08:45 | NUR ---
GAVE MORNING MEDICATION AT THIS TIME. NO TROUBLE SWALLOWING. ASSESED BLOOD SUGAR AT THIS TIME, DID NOT REQUIRE COVERAGE AT THIS TIME. PT HAS LEFT CHEST INFUSAPORT THAT IS SALINE LOCKED. HAS A BIPAP THAT IS ON 4 HOURS AND THEN OFF 4 HOURS. PT HAS A CALDERON AND IS ABLE TO GET UP WITH A 2 PERSON ASSIST. HELPED PT FILL OUT MENU. DENIES ANY NEEDS AT THIS TIME. WILL CONTINUE TO MONITOR.
[2019-08-15 09:14] VITALS: BP 150/81
--- NOTE | 2019-08-15 11:41 | NUR ---
ADMINISTERED MEDICATION, NO TROUBLE SWALLOWING. ASSESSED BLOOD SUGAR, 120. DOES NOT REQUIRE COVERAGE PER SLIDING SCALE. PT IS UP RIGHT IN BEDSIDE CHAIR. STILL REPORTS PAIN LEVEL OF 4 IN SIDE EVEN AFTER TYLENOL. DID NOT REQUEST ANY ADDITIONAL INTERVENTION. DENIES ANY OTHER NEEDS AT THIS TIME. WILL CONTINUE TO MONITOR.
--- NOTE | 2019-08-15 11:44 | NUR ---
I have reviewed this patient and I concur with the Shift Assessment completed by the Licensed Practical Nurse today this shift.
--- NOTE | 2019-08-15 13:41 | NUR ---
PT IS RESTING COMFORTABLY IN BED WITH EYES CLOSED. BREATHING EVEN AND UNLABORED. NO S/S OF DISTRESS NOTED. WILL CONTINUE TO MONITOR.
--- NOTE | 2019-08-15 14:38 | NUR ---
ADMINSTERED MEDICATION AT THIS TIME. STARTED IV ANTIBIOTIC, DENIES ANY PAIN. DENIES ANY NEEDS AT THIS TIME. WILL CONTINUE TO MONITOR.
--- NOTE | 2019-08-15 16:08 | NUR ---
ADMINSTERED MEDICATION AT THIS TIME, NO DIFFICULTY. ASSESSED BLOOD SUGAR, 199. 2 UNITS HUMALOG PER SLIDING SCALE. DENIES ANY NEEDS AT THIS TIME. WILL CONTINUE TO MONITOR.
--- NOTE | 2019-08-15 17:16 | NUR ---
HUNG NEW IV ANTIBIOTIC. REPORTS NO PAIN. DENIES ANY NEEDS AT THIS TIME. WILL CONTINUE TO MONITOR.
--- NOTE | 2019-08-15 17:49 | NUR ---
EMPTIED PT CALDERON BAG, 550 ML. REPOSITIONED PT FOR COMFORT. MOVED TRAY OVER PT TO EAT DINNER. DENIES ANY NEEDS AT THIS TIME. WILL CONTINUE TO MONITOR.
[2019-08-15 20:34] VITALS: BP 128/79
[2019-08-16 01:13] VITALS: BP 107/63
[2019-08-16 05:08] VITALS: BP 125/73
[2019-08-16 06:19] LABS: BASOPHILS 0 % (0-2); EOSINOPHILS 0.2 % (0-7); HEMOGLOBIN 9.9 g/dL (12-16); IMMATURE GRANULOCYTES 0.3 % (0-5); MCH 26.5 pg (26.0-34.0); MCHC 30.9 g/dL (31.0-37.0); MCV 85.8 fL (80.0-100.0); MEAN PLATELET VOLUME 9.5 fL (7.4-10.4); MONOCYTES 2.4 % (2-11); NEUTROPHILS 91.1 % (40-80); PLATELET COUNT 166 10x3/uL (130-400); RBC 3.73 10x6/uL (4.00-5.40); RDW 16.5 % (11.5-14.5)
[2019-08-16 06:28] LABS: WBC 17.1 10x3/uL (4.8-10.8)
[2019-08-16 06:37] LABS: ALBUMIN 2.1 g/dL (3.4-5.0); ANION GAP 14.4 mmol/L (8-16); BILIRUBIN - TOTAL 0.41 mg/dL (0.2-1.3); CALCIUM 8.1 mg/dL (8.5-10.1); CARBON DIOXIDE 24.9 mmol/L (21.0-32.0); CREATININE - SERUM 1.5 mg/dL (0.6-1.3); POTASSIUM - SERUM 5.3 mmol/L (3.5-5.1); PROTEIN - SERUM 4.9 g/dL (6.4-8.2)
--- NOTE | 2019-08-16 07:10 | NUR ---
PT RESTING IN BED. NO SIGNS OF DISTRESS. IV TO LEFT PORT PATENT NO REDNESS OR TENDERNESS. ON 12L HIGHFLOW. HAS CALDERON NO KINKS PATENT. DENIES ANY FURTHER NEED AT THIS TIME. CALL LIGHT IN REACH, BED LOW POSITION. NO FAMILY AT BEDSIDE AT THIS TIME.
[2019-08-16 09:22] VITALS: BP 162/101
--- NOTE | 2019-08-16 13:28 | NUR ---
I have reviewed this patient and I concur with the Shift Assessment completed by the Licensed Practical Nurse today this shift.
[2019-08-16 13:57] VITALS: BP 186/117
[2019-08-16 16:42] VITALS: BP 134/93
[2019-08-16 20:00] VITALS: BP 148/61
[2019-08-17] VITALS: BP 117/71
[2019-08-17 04:00] VITALS: BP 124/76
[2019-08-17 06:39] LABS: ALBUMIN 2.1 g/dL (3.4-5.0); ANION GAP 13.9 mmol/L (8-16); BILIRUBIN - TOTAL 0.33 mg/dL (0.2-1.3); CALCIUM 7.7 mg/dL (8.5-10.1); CARBON DIOXIDE 24.8 mmol/L (21.0-32.0); CREATININE - SERUM 1.7 mg/dL (0.6-1.3); POTASSIUM - SERUM 4.7 mmol/L (3.5-5.1); PROTEIN - SERUM 4.9 g/dL (6.4-8.2)
[2019-08-17 07:17] LABS: BASOPHILS 0 % (0-2); EOSINOPHILS 0.2 % (0-7); HEMATOCRIT 31.2 % (36.0-48.0); HEMOGLOBIN 9.6 g/dL (12-16); IMMATURE GRANULOCYTES 0.4 % (0-5); LYMPHOCYTES 3.3 % (15-50); MCH 26.3 pg (26.0-34.0); MCHC 30.8 g/dL (31.0-37.0); MCV 85.5 fL (80.0-100.0); MEAN PLATELET VOLUME 9.6 fL (7.4-10.4); MONOCYTES 4.1 % (2-11); PLATELET COUNT 160 10x3/uL (130-400); RBC 3.65 10x6/uL (4.00-5.40); RDW 16.7 % (11.5-14.5); WBC 16.5 10x3/uL (4.8-10.8)
--- NOTE | 2019-08-17 08:45 | NUR ---
WEARING HER NC THIS MORNING, AT 6 LITERS. SHE SWITCHES FROM BI PAP TO HIGH FLOW NC. SHE IS EATING HER BREAKFAST. DENIES ANY PAIN.
[2019-08-17 08:55] VITALS: BP 151/88
[2019-08-17 11:51] VITALS: BP 168/83
--- NOTE | 2019-08-17 13:39 | NUR ---
Nutrition follow-up: Diet changed to renal ADA due to elevated BUN, Cr PO intake has decreased to ~25-50% of meals due to diet change Labs reviewed Wt: 146# RDN following.
[2019-08-17 15:26] VITALS: BP 136/87
[2019-08-17 16:08] LABS: AEROBE ID Final report (())
[2019-08-17 20:29] VITALS: BP 124/76
[2019-08-18 00:25] VITALS: BP 122/74
[2019-08-18 04:21] LABS: HEMATOCRIT 30.3 % (36.0-48.0); HEMOGLOBIN 9.5 g/dL (12-16); LYMPHOCYTES 4.5 % (15-50); MCH 26.5 pg (26.0-34.0); MCHC 31.4 g/dL (31.0-37.0); MCV 84.4 fL (80.0-100.0); MEAN PLATELET VOLUME 9.1 fL (7.4-10.4); PLATELET COUNT 140 10x3/uL (130-400); RBC 3.59 10x6/uL (4.00-5.40); RDW 16.7 % (11.5-14.5); WBC 12.6 10x3/uL (4.8-10.8)
[2019-08-18 04:35] LABS: ANION GAP 12.4 mmol/L (8-16); BILIRUBIN - TOTAL 0.37 mg/dL (0.2-1.3); CALCIUM 7.9 mg/dL (8.5-10.1); CARBON DIOXIDE 24.8 mmol/L (21.0-32.0); CREATININE - SERUM 1.5 mg/dL (0.6-1.3); POTASSIUM - SERUM 4.2 mmol/L (3.5-5.1); PROTEIN - SERUM 4.8 g/dL (6.4-8.2)
[2019-08-18 05:48] VITALS: BP 145/86
[2019-08-18 08:46] VITALS: BP 133/87
[2019-08-18 12:29] VITALS: BP 132/78
--- NOTE | 2019-08-18 14:33 | NUR ---
OT NOTE: BED MOB WITH MIN/MOD ASSIST; GOOD STATIC SITTING BALANCE; SIMPLE GROOMING TASKS WITH SET UP/MIN ASSIST. SIT TO STAND AND TRANSFERS WITH MIN ASSIST. PT REPORTS FEELING BETTER. GURWINDER FALL, OTR/L [phone]
[2019-08-18 17:42] VITALS: BP 144/81
--- NOTE | 2019-08-18 18:47 | NUR ---
HAS NOT VOIDED SINCE THE CALDERON WAS REMOVED. BLADDER SCANNER READS 71 CC.
[2019-08-18 20:18] VITALS: BP 134/81
[2019-08-19 00:32] VITALS: BP 163/106
[2019-08-19 03:45] VITALS: BP 185/114
[2019-08-19 05:41] LABS: HEMATOCRIT 31.9 % (36.0-48.0); LYMPHOCYTES 6.2 % (15-50); MCH 26.6 pg (26.0-34.0); MCHC 31.3 g/dL (31.0-37.0); MCV 84.8 fL (80.0-100.0); NEUTROPHILS 88.9 % (40-80); PLATELET COUNT 160 10x3/uL (130-400); RBC 3.76 10x6/uL (4.00-5.40); RDW 16.9 % (11.5-14.5); WBC 13.7 10x3/uL (4.8-10.8)
[2019-08-19 05:42] LABS: ANION GAP 16.3 mmol/L (8-16); BILIRUBIN - TOTAL 0.42 mg/dL (0.2-1.3); CALCIUM 7.9 mg/dL (8.5-10.1); CREATININE - SERUM 1.4 mg/dL (0.6-1.3); POTASSIUM - SERUM 4.3 mmol/L (3.5-5.1); PROTEIN - SERUM 4.9 g/dL (6.4-8.2)
--- NOTE | 2019-08-19 07:00 | NUR ---
ALERT AND ORIENTED. NO C/O PAIN. NO S/S OF ACUTE DISTRESS NOTED. UP WITH PHYSICAL THERAPY. ON 6L O2, NC. LEFT CHEST PORT, SL. SITE PATENT WITHOUT REDNESS OR SWELLING. DENIES ANY NEEDS AT THIS TIME. CALL LIGHT IN REACH. WILL CONTINUE TO MONITOR.
[2019-08-19 08:17] VITALS: BP 138/80
--- NOTE | 2019-08-19 10:45 | NUR ---
TITRATED PATIENT TO 5L O2, NC. O2 SAT @ 94%.
--- NOTE | 2019-08-19 10:50 | NUR ---
OT NOTE: PT WITH INCREASED EDEMA IN B UES AND LES ( GREATER IN R UE THAN L); PERFORMED AROM FOR ANKLE PUMPS, SHOULDER FLEX/EXT; ELBOW FLEX/EXT. SUPINE TO SIT WITH MOD ASSIST TODAY. STATIC SITTNG ON EOB WITHOUT SUPPORT. ABLE TO WASH FACE AND HANDS WITH CLOTH WITH SET UP; REQUIRES MAX ASSIST TO BREANN AND DOFF SOCKS; MOD ASSIST TO BREANN GOWN. TRANSFER FROM BED TO CHAIR WITH MIN ASSIST. GURWINDER FALL, OTR/L [phone]
--- NOTE | 2019-08-19 11:22 | NUR ---
LYING IN BED,WITHOUT NEEDS.
--- NOTE | 2019-08-19 11:54 | NUR ---
I have reviewed this patient and I concur with the Shift Assessment completed by the Licensed Practical Nurse today this shift.
--- NOTE | 2019-08-19 13:33 | NUR ---
TITRATED PATIENT TO 4L O2, NC PER DR. MARCANO. O2 SAT @ 92%.
[2019-08-19 14:51] VITALS: BP 137/71
[2019-08-19 18:00] VITALS: BP 142/77
--- NOTE | 2019-08-19 18:42 | NUR ---
ALERT AND ORIENTED. NO C/O PAIN. NO S/S OF ACUTE DISTRESS NOTED. DENIES ANY NEEDS ANY NEEDS AT THIS TIME. CALL LIGHT IN REACH. WILL CONTINUE TO MONITOR.
[2019-08-19 22:42] VITALS: BP 113/73
[2019-08-20 01:42] VITALS: BP 123/78
[2019-08-20 05:15] LABS: BASOPHILS 0 % (0-2); EOSINOPHILS 1.1 % (0-7); HEMATOCRIT 31.2 % (36.0-48.0); HEMOGLOBIN 9.4 g/dL (12-16); IMMATURE GRANULOCYTES 0.6 % (0-5); MCH 25.8 pg (26.0-34.0); MCHC 30.1 g/dL (31.0-37.0); MCV 85.5 fL (80.0-100.0); MEAN PLATELET VOLUME 10.2 fL (7.4-10.4); MONOCYTES 5.8 % (2-11); NEUTROPHILS 85.5 % (40-80); PLATELET COUNT 157 10x3/uL (130-400); RBC 3.65 10x6/uL (4.00-5.40); WBC 11.7 10x3/uL (4.8-10.8)
[2019-08-20 06:14] LABS: ANION GAP 14.1 mmol/L (8-16); BILIRUBIN - TOTAL 0.34 mg/dL (0.2-1.3); CALCIUM 7.8 mg/dL (8.5-10.1); CARBON DIOXIDE 23.5 mmol/L (21.0-32.0); CREATININE - SERUM 1.5 mg/dL (0.6-1.3); POTASSIUM - SERUM 4.6 mmol/L (3.5-5.1); PROTEIN - SERUM 4.8 g/dL (6.4-8.2)
[2019-08-20 06:18] VITALS: BP 132/80
[2019-08-20] MEDS ORDERED: BROVANA15 MCG/2 M INH (10:15)
[2019-08-20] MEDS ORDERED: ATROVENT 0.02%2.5 ML UPD (10:15)
[2019-08-20] MEDS ORDERED: PULMICORT0.5 MG/21 UPD (10:16)
[2019-08-20] MEDS ORDERED: SINGULAIR10 MG PO (10:16)
[2019-08-20] MEDS ORDERED: TESSALON PERLE100 MG PO (10:16)
[2019-08-20] MEDS ORDERED: MIRALAX17 GM PO (10:17)
[2019-08-20] MEDS ORDERED: MERREM 1 GM/NS 11 G1 IV (10:18)
[2019-08-20] MEDS ORDERED: PREDNISONE20 MG PO (10:18)
--- NOTE | 2019-08-20 11:07 | NUR ---
OT NOTE: HOLD PER NURSING DUE TO DECREASED O2 SATS AT RESTING. GURWINDER FALL, OTR/L
[2019-08-20 12:25] VITALS: BP 142/84
--- NOTE | 2019-08-20 19:08 | MORECARE ---
CASE MANAGEMENT DISCHARGE SUMMARY PATIENT: TIM GARCIA UNIT: [id number] ADM DATE: 07/28/19 AGE: 69 : 54 SEX: F ROOM/BED: D.2237 AUTHOR: CARLOS ENRIQUE,DOC PHYSICIAN: REFERRING PHYSICIAN: MARLENI GOODMAN MD DATE OF SERVICE: 08/20/19 Discharge Plan Patient Name: TIM GARCIA Facility: [facility]:[place] : 1950 Planned Disposition: Inpatient Rehab Anticipated Discharge Date: 07/31/19 Discharge Date: 08/20/2019 Expected LOS: 3 Initial Reviewer: [id number] Initial Review Date: 07/29/2019 Generated: 08/20/19 8:07 pm Comments DCP- Discharge Planning Updated by [email or web address]: Mis Desouza on 08/14/19 2:[address] Gomez states patient should wait until Saturday to discharge to inpatient rehab, I notified Shaheed in inpatient rehab. DCP- Discharge Planning Updated by [id number]: Mis Desouza on 08/14/19 1:[address] Patient Name: TIM GARCIA Encounter No: [id number] : 1950 Primary Insurance: [facility] MEDIC[employer] SOLUTIONS Anticipated DC Date: 07-31-2019 Planned Disposition: Inpatient Rehab External Planned Provider: : DCP follow-up note: Patient in agreement with discharge plan. No changes to plan. Discharging to inpatient rehab today if ok with Dr. Gomez. Case management will follow and assist as needed. Mis Desouza DCP- Discharge Planning Updated by [id number]: Trista Francois on 08/05/19 6:[address] Received a copy of POA paperwork and placed it in patient chart. CM will continue to follow and assist as needed with discharge planning / needs. DCP- Discharge Planning Updated by [email or web address]: Trista Francois on 08/04/19 3:[address] Nursing notified CM that patient's niece listed on contact list Gin Rodriguez informed nursing that she was patient's POA and she did not want patient transferred. Gin is suppose to be bringing up POA paperwork to be placed on chart. CM will continue to follow and assist as needed with discharge planning / needs. DCP- Discharge Planning Updated by [email or web address]: Trista Francois on 08/04/19 2:[address] CM received a call back from transfer center she stated that [facility] - ICU and MED/SURG is at MAX capacity at this time. CM let charge nurse know status. CM will continue to follow and assist as needed with discharge planning / needs. DCP- Discharge Planning Updated by [email or web address]: Trista Francois on 08/04/19 12:[address] CM received a request from Dr. Salmon to contact transfer center because patient's son is demanding patient to be transferred. Patient is confused and unable tell CM if she would like to transfer. CM contacted transfer center and faxed records. Transfer center stated they would call back to Dr. Salmon once they have an accepting physician. CM will continue to follow and assist as needed with discharge planning/ needs. DCP- Discharge Planning Updated by [id number]: Haleigh Sampson on 07/31/19 1:[address] Patient Name: TIM GARCIA Encounter No: [id number] : 1950 Primary Insurance: [facility] MEDIC[employer] SOLUTIONS Anticipated DC Date: 07-31-2019 Planned Disposition: Inpatient Rehab External Planned Provider: [facility] INPATIENT REHAB DCP follow-up note: CM SPOKE TO [facility] OF INPATIENT REHAB, THEY PLAN TO ACCEPT PT TODAY FOR REHAB AFTER PT'S RENAL ULTRASOUND; THEY HAVE RECEIVED INSURANCE AUTHORIZATION. PT NOTIFIED, IN AGREEMENT WITH DISCHARGE TO INPATIENT REHAB. PT STATES SHE IS NOT READY TO DISCHARGE HOME DUE TO HAVING BREATHING TROUBLE BUT IS NOT HAPPY WITH HER CARE. CM EXPLAINED INPATIENT REHAB AND SERVICES IN REHAB. PT STATES SHE WILL GO AND TRY IT OUT. PT'S SON CALLED PT IN ROOM, PT ASKED CM TO SPEAK TO HER SON. SON INFORMED CM THAT HE WAS THINKING OF COMING TO TAKE PT HOME, CM EXPLAINED REHAB APPROVAL BY INSURANCE AND THAT REHAB WILL TAKE PT TODAY. PT'S SON SEEMED TO ALSO BE IN AGREEMENT AND STATES IT HIS MOTHERS CHOICE. CM SPOKE TO PT WHO IS IN AGREEMENT WITH REHAB. PT ASKED THAT THE SCALE SHOOTER NOT GIVE HER ANOTHER MED NEB TREATMENT NOW BECAUSE IT IS WEARING HER OUT. CM PROVIDED PT WITH GIVER NUMBER TO CALL IF HER CARE WAS BAD, PT STATES THAT HER NURSE MANDI IS CARRYING THE WHOLE UNIT. CM ALSO ADVISED THAT CM WILL HAVE UNIT PRELOAD SUPERVISOR SEE HER REGARDING HER CARE COMPLAINTS. CM NOTIFIED UNIT NURSE FEEDER ASSOCIATE GIN. SEBASTIEN ROSS NOTIFIED. PT CAN DISCHARGE TO INPATIENT REHAB ONCE RENAL ULTRASOUND IS COMPLETED. [facility] INPATIENT REHAB TO CONTACT MED 2 NURSE WITH ROOM NUMBER WHEN READY TO ACCEPT PT AND NURSE REPORT. Haleigh Sampson, CASE MANAGEMENT Appended by Haleigh Sampson on 07/31/2019 15:20 GAS WELDING MACHINE OPERATOR: CM RECEIVED MESSAGE FROM SEBASTIEN ROSS, PT IS NOT STABLE FOR DISCHARGE TO INPATIENT REHAB AT THIS TIME. CM NOTIFIED CL[facility] OF [facility] INPATIENT REHAB. HALEIGH SAMPSON, CASE MANAGEMENT DCP- Discharge Planning Updated by [id number]: Mis Desouza on 07/29/19 12:[address] Patient Name: TIM GARCIA Admission Status: ER Accout number: [id number] Admission Date: 07-28-2019 : 1950 Admission Diagnosis: Attending: CASANDRA GOODMAN Current LOS: 1 Anticipated DC Date: Planned Disposition: Inpatient Rehab Primary Insurance: [facility] MEDIC[employer] SOLUTIONS Discharge Planning Comments: CM met with patient to complete initial dc planning assessment. CM educated patient on the CM role and verbal consent given by patient to complete assessment. Patient lives at home alone, States her son lives on the same property. CM discussed availability of home health, rehab services, and medical equipment. Patient states she needs to get stronger and would like a referral to inpatient rehab at [facility]. I informed her that her insurance would need to authorize her to go first. [facility] I asked her if she would consider SNF if they did not authorize inpatient rehab and she states "Let's cross that bridge later." CM will continue to follow and will assist as needed with dc plans/needs. Monotypist: Mis Desouza DCPIA - Discharge Planning Initial Assessment Updated by [id number]: Mis Desouza on 07/29/19 2:50 pm * Is the patient Alert and Oriented? Yes * How many steps to enter\\exit or inside your home? 5/0 * PCP Dr. Deal * Preadmission Environment Home Alone * ADLs Partial Dependent * Partial ADLs (Assistance needed) Ambulation * Equipment Bedside Commode Nebulizer Other Oxygen Shower Chair Walker * Other Equipment Portable oxygen * List name and contact numbers for known caregivers / representatives who currently or will assist patient after discharge: Hosea sheriff - [phone] (message phone) * Verbal permission to speak to the caregivers and representatives has been obtained from the patient. Yes * Community resources currently utilized Home Health * Please name any agencies selected above. [facility] * Additional services required to return to the preadmission environment? No * Can the patient safely return to the preadmission environment? Yes * Has this patient been hospitalized within the prior 30 days at any hospital? No Coverage Notice Reviewer: [id number] Naty Desouza Notice Issued Date-Time: 07/29/2019 14:56 Notice Type: Patient Choice Letter Notice Delivered To: Patient Relationship to Patient: Self Cytology Teacher Name: Delivery Method: HAND - Hand Delivered Kinza Days: Prior Verbal Notification: Recipient Understood Notice: Yes Recipient Signature: Yes Med Rec Note Co-signed by Attending: Coverage Notice Comment: EMILIA for 1)[facility] inpatient rehab 2) [facility] Reviewer: [id number] Naty Sampson Notice Issued Date-Time: 07/31/2019 14:15 Notice Type: IM Discharge Notice Notice Delivered To: Patient Relationship to Patient: Cytology Teacher Name: Delivery Method: HAND - Hand Delivered Kinza Days: Prior Verbal Notification: Recipient Understood Notice: Yes Recipient Signature: Yes Med Rec Note Co-signed by Attending: Coverage Notice Comment: Reviewer: [email or web address] Naty Desouza Notice Issued Date-Time: 08/14/2019 14:09 Notice Type: IM Discharge Notice Notice Delivered To: Patient Relationship to Patient: Self Cytology Teacher Name: Delivery Method: HAND - Hand Delivered Kinza Days: Prior Verbal Notification: Recipient Understood Notice: Yes Recipient Signature: Yes Med Rec Note Co-signed by Attending: Coverage Notice Comment: IMM explained, signed, given, copy placed in MR Reviewer: [email or web address] Naty Francois Notice Issued Date-Time: 08/20/2019 13:00 Notice Type: IM Discharge Notice Notice Delivered To: Patient Relationship to Patient: Self Cytology Teacher Name: Delivery Method: HAND - Hand Delivered Kinza Days: Prior Verbal Notification: Recipient Understood Notice: Yes Recipient Signature: Yes Med Rec Note Co-signed by Attending: Coverage Notice Comment: Last DP export: 08/14/19 2:10 p Patient Name: TIM GARCIA Page [id number] at 1908 All edits/amendments must be made on the electronic document DICTATION DATE: 08/20/191906 ASSISTANT IN NURSING: YOVANA 08/20/191906 RPT#: [id number] DC DATE:08/20/19 STATUS: DIS IN [facility] [address] [place] [address] END OF REPORT
--- NOTE | 2019-08-20 19:14 | MORECARE ---
CASE MANAGEMENT DISCHARGE SUMMARY PATIENT: TIM GARCIA UNIT: [id number] ADM DATE: 07/28/19 AGE: 69 : [birth year] SEX: F ROOM/BED: D.2237 AUTHOR: JG MONACO PHYSICIAN: REFERRING PHYSICIAN: MARLENI GOODMAN MD DATE OF SERVICE: 08/20/19 Discharge Plan Patient Name: TIM GARCIA Facility: [facility] : 1950 Planned Disposition: Inpatient Rehab Anticipated Discharge Date: 07/31/19 Discharge Date: 08/20/2019 Expected LOS: 3 Initial Reviewer: [email or web address] Initial Review Date: 07/29/2019 Generated: 08/20/19 8:14 pm Comments DCP- Discharge Planning Updated by [id number]: Trista Francois on 08/20/19 6:[address] Patient Name: TIM GARCIA Encounter No: [id number] : 1950 Primary Insurance: [employer] Anticipated DC Date: 07-31-2019 Planned Disposition: Inpatient Rehab External Planned Provider: : Isabel/Rolan NIEVES SIGNED 08/20/19 @ 1300 DCP follow-up note: Patient and family in agreement with discharge plan. No changes to plan. Case management will follow and assist as needed. Trista Francois DCP- Discharge Planning Updated by [id number]: Mis Desouza on 08/14/19 2:[address] Gomez states patient should wait until Saturday to discharge to inpatient rehab, I notified Shaheed in inpatient rehab. DCP- Discharge Planning Updated by [id number]: Mis Desouza on 08/14/19 1:[address] Patient Name: TIM GARCIA Encounter No: [id number] : 1950 Primary Insurance: [employer] Anticipated DC Date: 07-31-2019 Planned Disposition: Inpatient Rehab External Planned Provider: : DCP follow-up note: Patient in agreement with discharge plan. No changes to plan. Discharging to inpatient rehab today if ok with Dr. Gomez. Case management will follow and assist as needed. Mis Desouza DCP- Discharge Planning Updated by [email or web address]: Trista Francois on 08/05/19 6:[address] Received a copy of POA paperwork and placed it in patient chart. CM will continue to follow and assist as needed with discharge planning / needs. DCP- Discharge Planning Updated by [email or web address]: Trista Francois on 08/04/19 3:[address] Nursing notified CM that patient's niece listed on contact list Gin Rodriguez informed nursing that she was patient's POA and she did not want patient transferred. Gin is suppose to be bringing up POA paperwork to be placed on chart. CM will continue to follow and assist as needed with discharge planning / needs. DCP- Discharge Planning Updated by [email or web address]: Trista Francois on 08/04/19 2:[address] CM received a call back from transfer center she stated that [facility] - ICU and MED/SURG is at MAX capacity at this time. CM let charge nurse know status. CM will continue to follow and assist as needed with discharge planning / needs. DCP- Discharge Planning Updated by [email or web address]: Trista Francois on 08/04/19 12:[address] CM received a request from Dr. Salmon to contact transfer center because patient's son is demanding patient to be transferred. Patient is confused and unable tell CM if she would like to transfer. CM contacted transfer center and faxed records. Transfer center stated they would call back to Dr. Salmon once they have an accepting physician. CM will continue to follow and assist as needed with discharge planning/ needs. DCP- Discharge Planning Updated by [id number]: Haleigh Sampson on 07/31/19 1:[address] Patient Name: TIM GARCIA Encounter No: [id number] : 1950 Primary Insurance: [facility] MEDIC[facility] SOLUTIONS Anticipated DC Date: 07-31-2019 Planned Disposition: Inpatient Rehab External Planned Provider: [facility] DCP follow-up note: CM SPOKE TO CLARK OF INPATIENT REHAB, THEY PLAN TO ACCEPT PT TODAY FOR REHAB AFTER PT'S RENAL ULTRASOUND; THEY HAVE RECEIVED INSURANCE AUTHORIZATION. PT NOTIFIED, IN AGREEMENT WITH DISCHARGE TO INPATIENT REHAB. PT STATES SHE IS NOT READY TO DISCHARGE HOME DUE TO HAVING BREATHING TROUBLE BUT IS NOT HAPPY WITH HER CARE. CM EXPLAINED INPATIENT REHAB AND SERVICES IN REHAB. PT STATES SHE WILL GO AND TRY IT OUT. PT'S SON CALLED PT IN ROOM, PT ASKED CM TO SPEAK TO HER SON. SON INFORMED CM THAT HE WAS THINKING OF COMING TO TAKE PT HOME, CM EXPLAINED REHAB APPROVAL BY INSURANCE AND THAT REHAB WILL TAKE PT TODAY. PT'S SON SEEMED TO ALSO BE IN AGREEMENT AND STATES IT HIS MOTHERS CHOICE. CM SPOKE TO PT WHO IS IN AGREEMENT WITH REHAB. PT ASKED THAT THE TEMPLATE REPRODUCTION TECHNICIAN NOT GIVE HER ANOTHER MED NEB TREATMENT NOW BECAUSE IT IS WEARING HER OUT. CM PROVIDED PT WITH SPRING FORMER NUMBER TO CALL IF HER CARE WAS BAD, PT STATES THAT HER NURSE MANDI IS CARRYING THE WHOLE UNIT. CM ALSO ADVISED THAT CM WILL HAVE UNIT CREDIT SPECIALIST SEE HER REGARDING HER CARE COMPLAINTS. CM NOTIFIED UNIT NURSE SHRINK PIT SUPERVISOR GIN. SEBASTIEN ROSS NOTIFIED. PT CAN DISCHARGE TO INPATIENT REHAB ONCE RENAL ULTRASOUND IS COMPLETED. [facility] TO CONTACT MED 2 NURSE WITH ROOM NUMBER WHEN READY TO ACCEPT PT AND NURSE REPORT. Haleigh Sampson, CASE MANAGEMENT Appended by Haleigh Sampson on 07/31/2019 15:20 ARTIST'S MANAGER: CM RECEIVED MESSAGE FROM SEBASTIEN ROSS, PT IS NOT STABLE FOR DISCHARGE TO INPATIENT REHAB AT THIS TIME. CM NOTIFIED [facility] OF [facility]. HALEIGH SAMPSON, CASE MANAGEMENT DCP- Discharge Planning Updated by [id number]: Mis Desouza on 07/29/19 12:[address] Patient Name: TIM GARCIA Admission Status: ER Accout number: [id number] Admission Date: 07-28-2019 : 1950 Admission Diagnosis: Attending: CASANDRA GOODMAN Current LOS: 1 Anticipated DC Date: Planned Disposition: Inpatient Rehab Primary Insurance: [facility] MEDICARE SOLUTIONS Discharge Planning Comments: CM met with patient to complete initial dc planning assessment. CM educated patient on the CM role and verbal consent given by patient to complete assessment. Patient lives at home alone, States her son lives on the same property. CM discussed availability of home health, rehab services, and medical equipment. Patient states she needs to get stronger and would like a referral to inpatient rehab at [facility]. I informed her that her insurance would need to authorize her to go first. She states her second choice is [facility]. I asked her if she would consider SNF if they did not authorize inpatient rehab and she states "Let's cross that bridge later." CM will continue to follow and will assist as needed with dc plans/needs. Salon Professional: Mis Desouza DCPIA - Discharge Planning Initial Assessment Updated by [id number]: Mis Desouza on 07/29/19 2:50 pm * Is the patient Alert and Oriented? Yes * How many steps to enter\\exit or inside your home? 5/0 * PCP Dr. Deal * Preadmission Environment Home Alone * ADLs Partial Dependent * Partial ADLs (Assistance needed) Ambulation * Equipment Bedside Commode Nebulizer Other Oxygen Shower Chair Walker * Other Equipment Portable oxygen * List name and contact numbers for known caregivers / representatives who currently or will assist patient after discharge: [facility] - [phone] (message phone) * Verbal permission to speak to the caregivers and representatives has been obtained from the patient. Yes * Community resources currently utilized Home Health * Please name any agencies selected above. Marcelina [facility] * Additional services required to return to the preadmission environment? No * Can the patient safely return to the preadmission environment? Yes * Has this patient been hospitalized within the prior 30 days at any hospital? No Coverage Notice Reviewer: [email or web address] - Trista Francois Notice Issued Date-Time: 08/20/2019 13:00 Notice Type: IM Discharge Notice Notice Delivered To: Patient Relationship to Patient: Self Bellhop Service Captain Name: Delivery Method: HAND - Hand Delivered Kinza Days: Prior Verbal Notification: Recipient Understood Notice: Yes Recipient Signature: Yes Med Rec Note Co-signed by Attending: Coverage Notice Comment: Reviewer: [id number] - Mis Desouza Notice Issued Date-Time: 08/14/2019 14:09 Notice Type: IM Discharge Notice Notice Delivered To: Patient Relationship to Patient: Self Bellhop Service Captain Name: Delivery Method: HAND - Hand Delivered Kinza Days: Prior Verbal Notification: Recipient Understood Notice: Yes Recipient Signature: Yes Med Rec Note Co-signed by Attending: Coverage Notice Comment: IMM explained, signed, given, copy placed in MR Reviewer: [id number] - Haleigh Sampson Notice Issued Date-Time: 07/31/2019 14:15 Notice Type: IM Discharge Notice Notice Delivered To: Patient Relationship to Patient: Bellhop Service Captain Name: Delivery Method: HAND - Hand Delivered Kinza Days: Prior Verbal Notification: Recipient Understood Notice: Yes Recipient Signature: Yes Med Rec Note Co-signed by Attending: Coverage Notice Comment: Reviewer: [email or web address] Naty Desouza Notice Issued Date-Time: 07/29/2019 14:56 Notice Type: Patient Choice Letter Notice Delivered To: Patient Relationship to Patient: Self Bellhop Service Captain Name: Delivery Method: HAND - Hand Delivered Kinza Days: Prior Verbal Notification: Recipient Understood Notice: Yes Recipient Signature: Yes Med Rec Note Co-signed by Attending: Coverage Notice Comment: EMILIA for 1)[facility] inpatient rehab 2) [facility] DP export: 08/20/19 6:08 p Patient Name: TIM GARCIA Page [id number] at 1914 All edits/amendments must be made on the electronic document DICTATION DATE: 08/20/191913 WAREHOUSE TEAM MEMBER: YOVANA 08/20/191913 RPT#: [id number] DC DATE:08/20/19 STATUS: DIS IN [facility] [address] [place] [address] END OF REPORT
== END 2019-08-20 16:31 | DRG 177 ==
LOC: D.ER 14:39 → D.M2 18:15 → D.ICU 18:15 → D.MS 18:15 → D.M2 07-29 12:39 → D.ICU 08-02 13:16 → D.MS 08-12 15:11
PROVIDERS: Family Medicine; Internal Medicine Nephrology; Internal Medicine Pulmonary Disease; ADMIT Emergency Medicine; ATTEND Emergency Medicine
PROC: 0B9J8ZX Drainage of Left Lower Lung Lobe, Via Natural or Artificial Opening Endoscopic, Diagnostic (ICD-10-PCS; principal; 2019-08-03)
PROC: 0B9F8ZX Drainage of Right Lower Lung Lobe, Via Natural or Artificial Opening Endoscopic, Diagnostic (ICD-10-PCS; 2019-08-03)
DX: J15.6 Pneumonia due to other Gram-negative bacteria (principal); I50.31 Acute diastolic (congestive) heart failure; J96.22 Acute and chronic respiratory failure with hypercapnia; J96.21 Acute and chronic respiratory failure with hypoxia; I13.0 Hypertensive heart and chronic kidney disease with heart failure and stage 1 through stage 4 chronic kidney disease, or unspecified chronic kidney disease; C34.92 Malignant neoplasm of unspecified part of left bronchus or lung; J44.0 Chronic obstructive pulmonary disease with (acute) lower respiratory infection; J44.1 Chronic obstructive pulmonary disease with (acute) exacerbation; E87.1 Hypo-osmolality and hyponatremia; J98.11 Atelectasis; B37.0 Candidal stomatitis; N17.9 Acute kidney failure, unspecified; B37.49 Other urogenital candidiasis; N39.0 Urinary tract infection, site not specified; E11.65 Type 2 diabetes mellitus with hyperglycemia; E78.5 Hyperlipidemia, unspecified; I25.10 Atherosclerotic heart disease of native coronary artery without angina pectoris; E11.22 Type 2 diabetes mellitus with diabetic chronic kidney disease; N18.9 Chronic kidney disease, unspecified; I48.0 Paroxysmal atrial fibrillation; D63.1 Anemia in chronic kidney disease; Z87.891 Personal history of nicotine dependence; B37.9 Candidiasis, unspecified; F41.9 Anxiety disorder, unspecified; R53.81 Other malaise; I48.91 Unspecified atrial fibrillation; Z95.0 Presence of cardiac pacemaker

== ENCOUNTER 2019-08-20 16:15 | Inpatient (IN) | payer MEDICARE ==
[~2019-08-20] VITALS: Ht 170.2 cm; Wt 50.8 kg
[~2019-08-20 16:15] MED LIST changes: +ATROVENT 0.02%2.5 ML UPD; +BROVANA15 MCG/2 M INH; +CATAPRES0.1 MG PO; +ELIQUIS2.5 MG PO; +GLUCOTROL XL 1010 MG PO; +INDERAL LA160 MG PO; +LYRICA100 MG PO; +MERREM 1 GM/NS 11 G1 IV; +MIRALAX17 GM PO; +ONGLYZA5 MG PO; +PREDNISONE20 MG PO; +PRISTIQ100 MG PO; +PULMICORT0.5 MG/21 UPD; +SINGULAIR10 MG PO; +TESSALON PERLE100 MG PO; +XANAX0.5 MG PO
[2019-08-20 18:38] VITALS: BP 131/77
--- NOTE | 2019-08-20 19:19 | NUR ---
GREETED PATIENT AND INTRODUCED MYSELF HER NURSE. ORIENTATED HER TO UNIT AND SURROUNDINGS. RESPIRATIONS EVEN. NO S/S OF DISTRESS. O2 AT 4L IN USE VIA NC. CALL LIGHT WITHIN REACH LAYING ON PATIENTS CHEST. DENIES ANY NEEDS AT THIS TIME.
[2019-08-20 22:06] VITALS: BP 131/77; BMI 17.5
--- NOTE | 2019-08-21 00:49 | NUR ---
PT RESTING QUIETLY WITH EYES CLOSED. RESPIRATIONS EVEN. NO S/S OF DISTRESS. BIPAP IN USE. CALL LIGHT WITHIN REACH ON PATIENTS RIGHT SIDE.
--- NOTE | 2019-08-21 06:00 | NUR ---
PATIENTS FSBS 55. GAVE PT 240 ML OF ORANGE JUICE, ONE [place]ILLA ICE CREAM AND DIDI CRACKERS AND PEANUT BUTTER.
--- NOTE | 2019-08-21 06:34 | NUR ---
RECHECKED PTS. FSBS - 84 AFTER INTERVENTIONS TO RAISE.
[2019-08-21 06:49] LABS: BASOPHILS 0 % (0-2); EOSINOPHILS 1.8 % (0-7); HEMATOCRIT 31.7 % (36.0-48.0); HEMOGLOBIN 9.6 g/dL (12-16); IMMATURE GRANULOCYTES 0.7 % (0-5); LYMPHOCYTES 8.3 % (15-50); MCH 25.8 pg (26.0-34.0); MCHC 30.3 g/dL (31.0-37.0); MCV 85.2 fL (80.0-100.0); MEAN PLATELET VOLUME 10.3 fL (7.4-10.4); MONOCYTES 5.9 % (2-11); NEUTROPHILS 83.3 % (40-80); PLATELET COUNT 147 10x3/uL (130-400); RBC 3.72 10x6/uL (4.00-5.40); WBC 10.7 10x3/uL (4.8-10.8)
[2019-08-21 06:59] LABS: ANION GAP 10.1 mmol/L (8-16); CARBON DIOXIDE 25.1 mmol/L (21.0-32.0); CREATININE - SERUM 1.5 mg/dL (0.6-1.3); POTASSIUM - SERUM 4.2 mmol/L (3.5-5.1)
[2019-08-21 08:02] VITALS: BP 131/80
--- NOTE | 2019-08-21 13:00 | NUR ---
SITTING UP IN WC IN ROOM. JUST FINISHED LUNCH. HER HEAD LEANS TO THE RIGHT AND SHE CAN STRAIGHTEN IT UPON REQUEST BUT IT WILL RELAX TO LEANING TO RIGHT AGAIN. DENIES INCREASED SOB. EDEMA NOTED TO BLE. CALL LIGHT IN REACH
[2019-08-21 13:21] VITALS: Ht 170.2 cm; Wt 50.8 kg
--- NOTE | 2019-08-21 19:37 | NUR ---
AWAKE AND ALERT. RESTING IN BED WATCHING TV WITH RESPIRAITONS UNLABORED. NO ACUTE DISTRESS NOTED. GENERALIZED EDEMA NOTED. O2/5L ON PER HF. CALL LIGHT IN REACH.
[2019-08-21 20:00] VITALS: BP 115/76
--- NOTE | 2019-08-22 01:59 | NUR ---
RESTING IN BED WITH RESPIRATIONS UNLABORED. NO DISTRESS NOTED.
--- NOTE | 2019-08-22 07:39 | NUR ---
RESTING QUIETLY IN BED. CALL LIGHT IN REACH. SIDE RAILS X2 UP. NO S/S DISTRESS OR NEEDS.
[2019-08-22 08:21] VITALS: BP 130/50
--- NOTE | 2019-08-22 17:48 | NUR ---
NO INSULIN GIVEN. SHE DID NOT EAT SUPPER
--- NOTE | 2019-08-22 18:40 | NUR ---
LAYING DOWN IN BED WATCHING TV. DENIES NEEDS OR C/O. CALL LIGHT IN REACH
--- NOTE | 2019-08-22 19:15 | NUR ---
PT LYING IN BED WATCHING TV. CL IN REACH. DENIES NEEDS OR PAIN AT THIS TIME. BED IN LOW SIDE RAILS X2. RESP EVEN AND UNLABORED. A/O X4. O2 ON 5L HIGH FLOW. LEFT PORT INTACT. PACEMAKER TO LEFT CHEST. WILL CONTINUE TO MONITOR.
--- NOTE | 2019-08-23 01:14 | NUR ---
I have reviewed this patient and I concur with the Shift Assessment completed by the Licensed Practical Nurse today this shift.
[2019-08-23 09:23] VITALS: BP 127/85
--- NOTE | 2019-08-23 19:19 | NUR ---
PT LYING IN BED WATCHING TV. BIPAP ON AT THIS TIME. BED IN LOW SIDE RAILS X2. RESP EVEN AND UNLABORED. LUNGS DIMINISHED. BOWEL ACTIVE X4. LEFT PORT INTACT SL AT THIS TIME. WILL CONTINUE TO MONITOR.
--- NOTE | 2019-08-24 00:54 | NUR ---
I have reviewed this patient and I concur with the Shift Assessment completed by the Licensed Practical Nurse today this shift.
[2019-08-24 05:45] LABS: ANION GAP 12.7 mmol/L (8-16); CALCIUM 7.6 mg/dL (8.5-10.1); CARBON DIOXIDE 23.2 mmol/L (21.0-32.0); CREATININE - SERUM 1.2 mg/dL (0.6-1.3); POTASSIUM - SERUM 4.9 mmol/L (3.5-5.1)
[2019-08-24 05:46] LABS: BASOPHILS 0 % (0-2); EOSINOPHILS 0.7 % (0-7); HEMATOCRIT 30.2 % (36.0-48.0); IMMATURE GRANULOCYTES 0.7 % (0-5); LYMPHOCYTES 7.3 % (15-50); MCH 26.1 pg (26.0-34.0); MCHC 29.8 g/dL (31.0-37.0); MCV 87.5 fL (80.0-100.0); MEAN PLATELET VOLUME 10.9 fL (7.4-10.4); MONOCYTES 5.1 % (2-11); NEUTROPHILS 86.2 % (40-80); PLATELET COUNT 127 10x3/uL (130-400); RBC 3.45 10x6/uL (4.00-5.40); RDW 17.8 % (11.5-14.5); WBC 8.9 10x3/uL (4.8-10.8)
--- NOTE | 2019-08-24 08:00 | NUR ---
SITTING UP IN BED FOR BREAKFAST, TREMORS NOTED TO BUE. IS RICARDO X4. IS VERY WEAK AND FRAIL. OXYGEN IN PLACE. CALL LIGHT IN REACH
[2019-08-24 08:20] VITALS: BP 145/86
--- NOTE | 2019-08-24 13:56 | NUR ---
Nutrition follow-up: Diet changed to consistent CHO with Glucerna Shake TID 2/2 pts renal function stable at this time PO intqake ~50% of meals; pt has been refusing some meals with low glucose thats needed treatment Labs reviewed WT: 112# If po intake does not improve recommend changing diet order to regular as tolerated. RDN following.
--- NOTE | 2019-08-24 16:35 | NUR ---
VISITING WITH DR. RICARDO, NEUROLOGIST IN HER ROOM.
--- NOTE | 2019-08-24 19:20 | NUR ---
GREETED PATIENT AND INTRODUCED MYSELF HER NURSE. PATIENT IS LAYING IN BED RESTING AT THIS TIME. O2 AT 5L IN USE VIA NC. RESPIRATIONS EVEN. NO S/S OF DISTRESS. PATIENT IS REQUESTING TO BE PUT ON HER BIPAP, RESPIRATORY CONTACTED. CALL LIGHT WITHIN REACH ON LEFT SIDE.
[2019-08-24 19:49] VITALS: BP 136/83
--- NOTE | 2019-08-24 23:42 | NUR ---
PT RESTING QUIETLY WITH EYES CLOSED. RESPIRATIONS EVEN. NO S/S OF DISTRESS. BIPAP IN USE. CALL LIGHT WITHIN REACH ON PATIENTS LEFT SIDE.
--- NOTE | 2019-08-25 03:03 | NUR ---
PT RESTING QUIETLY WITH EYES CLOSED. RESPIRATIONS EVEN. NO S/S OF DISTRESS. BIPAP IN USE. CALL LIGHT WITHIN REACH ON PATIENTS RIGHT SIDE.
[2019-08-25 08:00] VITALS: BP 154/80
--- NOTE | 2019-08-25 08:00 | NUR ---
SHIFT ASSMT COMPLETED.
--- NOTE | 2019-08-25 16:00 | NUR ---
SITTING UP IN WC.CL IN REACH.
--- NOTE | 2019-08-25 19:15 | NUR ---
GREETED PATIENT AND INTROUDCED MYSELF HER NURSE. PATIENT IS CURRENTLY LAYING IN BED WATCHING TV AT THIS TIME. O2 AT 5L IN USE VIA NC. RESPIRATIONS EVEN. NO S/S OF DISTRESS. BEDSIDE SHIFT REPORT COMPLETED FROM OFF GOING NURSE. PATIENT DENIES ANY FURTHER NEEDS AT THIS TIME. CALL LIGHT WITHIN REACH ON RIGHT SIDE OF PATIENT.
[2019-08-25 19:33] VITALS: BP 174/88
--- NOTE | 2019-08-25 23:42 | NUR ---
PT AWAKE AND EATING SNACK. RESPIRATIONS EVEN. NO S/S OF DISTRESS. O2 AT 5L IN USE. CALL LIGHT WITHIN REACH ON RIGHT SIDE OF PATIENT.
[2019-08-26 06:53] LABS: BASOPHILS 0 % (0-2); HEMATOCRIT 30.1 % (36.0-48.0); HEMOGLOBIN 9.1 g/dL (12-16); IMMATURE GRANULOCYTES 0.5 % (0-5); LYMPHOCYTES 6.7 % (15-50); MCH 26.3 pg (26.0-34.0); MCHC 30.2 g/dL (31.0-37.0); MEAN PLATELET VOLUME 9.7 fL (7.4-10.4); NEUTROPHILS 85.8 % (40-80); PLATELET COUNT 108 10x3/uL (130-400); RBC 3.46 10x6/uL (4.00-5.40); WBC 7.3 10x3/uL (4.8-10.8)
[2019-08-26 07:15] LABS: CALCIUM 7.9 mg/dL (8.5-10.1); CARBON DIOXIDE 24.9 mmol/L (21.0-32.0); CREATININE - SERUM 1.4 mg/dL (0.6-1.3); POTASSIUM - SERUM 4.9 mmol/L (3.5-5.1)
[2019-08-26 07:35] VITALS: BP 131/75
--- NOTE | 2019-08-26 08:00 | NUR ---
SHIFT ASSMT COMPLETED.
--- NOTE | 2019-08-26 09:39 | NUR ---
PATIENT ADMITTED TO REHAB FROM ACUTE FLOOR. HER PCP IS DR. GONZALEZ. DME AT HOME IS A BEDSIDE COMMODE, O2, NEBULIZER, SHOWER CHAIR AND A WALKER. 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 DISCHARGE PLANS ARE FOR HER TO RETURN TO HER HOME. WILL CONTINUE TO FOLLOW WITH PATIENT.
--- NOTE | 2019-08-26 10:25 | NUR ---
CLINICAL UPDATES FAXED TO ARMANDO SCALES AT [phone], AUTH. # [id number] WITH CONFORMATION RECIEVED
--- NOTE | 2019-08-26 19:56 | NUR ---
PT IN BED BIPAP ON, RT IN ROOM, NO NEEDS NOTED, FALL PRECAUTIONS IN PLACE, FLUIDS/CALL LIGHT WITHIN REACH
--- NOTE | 2019-08-26 23:01 | NUR ---
PT ASLEEP, BIPAP ON WORKING PROPERLY, AROUSES EASILY TO VOICE, FALL PRECAUTIONS IN PLACE, FLUIDS/CALL LIGHTS WITHIN REACH, HAD SNACK PEANUT BUTTER/DIDI CRACKERS GAVE 2 UNITS OF HUMALOG BS 215, PT TENDS TO DROP SHARPLY OVERNIGHT
--- NOTE | 2019-08-27 04:47 | NUR ---
PT ASLEEP FALL PRECAUTIONS IN PLACE, FLUIDS/CALL LIGHT WITHIN REACH
--- NOTE | 2019-08-27 07:50 | NUR ---
RESTING QUIETLY WITH EYES CLOSED, RESP UNLABORED WITH BIPAP ON. AWOKE EASILY TO HER NAME. BIPAP REMOVED AND PLACED ON N/C 02 AT 4.5 L/M. ASSISTED UP IN BED FOR BREAKFAST. A/A/OX4. DENIES ANY PAIN OR DISCOMFORT AT THIS TIME AND VOICES NO REQUESTS. SIDERAILS UP X 2, CALL LIGHT IN REACH AND BED IN LOW LOCKED POSITION. WILL CONTINUE POC.
[2019-08-27 07:58] VITALS: BP 113/68
--- NOTE | 2019-08-27 12:30 | NUR ---
STATES SHE IS NAUSEATED AND REQUESTED MED. MEDICATED WITH ZOFRAN 4MG ODT. NO OTHER REQUESTS.
--- NOTE | 2019-08-27 12:45 | NUR ---
WHEN PT WAS IN THERAPY THEY PLACED AZUL HOSE ON HER ARMS DUE TO THE SWELLING. LEFT ARM NOW WITH WEEPING EDEMA.
--- NOTE | 2019-08-27 15:54 | NUR ---
STATES HER NAUSEA BEEN RELIEVED. SHE STARTED BELCHING SOME AND IT SEEMED TO HELP ALSO.
--- NOTE | 2019-08-27 19:22 | NUR ---
PT LYING IN BED. CL IN REACH. DENIES NEEDS AT THIS TIME. BED IN LOW SIDE RAILS X2. RESP EVEN AND UNLABORED.O2 ON 5L VIA HF. A/O X4. LUNGS DIMINISHED. BOWEL ACTIVE X4. HEELS FLOATED BY PILLOW. WILL CONTINUE TO MONITOR.
--- NOTE | 2019-08-28 00:24 | NUR ---
I have reviewed this patient and I concur with the Shift Assessment completed by the Licensed Practical Nurse today this shift.
[2019-08-28 05:48] LABS: CARBON DIOXIDE 27.3 mmol/L (21.0-32.0); CREATININE - SERUM 1.4 mg/dL (0.6-1.3); POTASSIUM - SERUM 5.3 mmol/L (3.5-5.1)
[2019-08-28 06:27] LABS: HEMATOCRIT 28.5 % (36.0-48.0); HEMOGLOBIN 8.9 g/dL (12-16); LYMPHOCYTES 9.4 % (15-50); MCH 27.4 pg (26.0-34.0); MCHC 31.2 g/dL (31.0-37.0); MCV 87.7 fL (80.0-100.0); MEAN PLATELET VOLUME 9.5 fL (7.4-10.4); NEUTROPHILS 79.1 % (40-80); PLATELET COUNT 90 10x3/uL (130-400); RBC 3.25 10x6/uL (4.00-5.40); RDW 18.6 % (11.5-14.5); WBC 6.2 10x3/uL (4.8-10.8)
[2019-08-28 07:01] LABS: PLATELET ESTIMATE NORMAL
[2019-08-28 07:38] VITALS: BP 120/69
--- NOTE | 2019-08-28 13:44 | NUR ---
LAYING DOWN IN BED. IS WEAKER AND MORE FRAIL TODAY. KEEPS HEAD LEANING TO THE RIGHT, ALMOST ON HER SHOULDER. IS CONT OF B/B. 3-4+ EDEMA NOTED TO BLE, COMPRESSION HOSE TO RUE TO HELP REDUCE SWELLING. CALL LIGHT IN REACH
--- NOTE | 2019-08-28 20:00 | NUR ---
PATIENT RECEIVED SITTING UP IN BED. ASSESSMENT & VITAL SIGNS DONE. BED LOW. ALARM ON. CALL LIGHT WITHIN REACH. WILL CONITNUE TO MONITOR.
[2019-08-28 21:45] VITALS: BP 131/78
--- NOTE | 2019-08-29 04:34 | NUR ---
PATIENT EYES CLOSED. BIPAP CONTINUES. BED LOW. CALL LIGHT WITHIN REACH. WILL CONTINUE TO MONITOR.
[2019-08-29 07:43] LABS: ANION GAP 9.3 mmol/L (8-16); CALCIUM 7.9 mg/dL (8.5-10.1); CARBON DIOXIDE 27.1 mmol/L (21.0-32.0); CREATININE - SERUM 1.4 mg/dL (0.6-1.3); POTASSIUM - SERUM 5.4 mmol/L (3.5-5.1)
[2019-08-29 08:00] VITALS: BP 92/56
--- NOTE | 2019-08-29 08:00 | NUR ---
SHIFT ASSMT COMPLETED.BREAKFAST SET UP GIVEN.TAKEN TO BATHROOM PT UNABLE TO STAND OR BARE WT ON LEGS AT ALL.CALLED FOR KERWIN TO ASSIST IN TRANSFER TO COMMODE.RETURNED TO BED.DID NOT WANT TO SET UP IN CHAIR FOR BREAKFAST.WAS ABLE TO BARE WT ON LEGS MUCH BETTER WITH 2 PERSON ASSIST.CL GIVEN.
[2019-08-29 20:00] VITALS: BP 105/48
--- NOTE | 2019-08-29 20:00 | NUR ---
PATIENT RECEIVED SITTING UP IN BED. BIPAP ON. ASSESSMENT & VITAL SIGNS DONE. NO C/O PAIN OR DISTRESS. BED LOW. ALARM ON. CALL LIGHT WITHIN REACH. WILL CONTINUE TO MONITOR.
--- NOTE | 2019-08-30 00:23 | NUR ---
PATIENT USED CALL LIGHT FOR ASSIST. THIS NURSE WENT TO ROOM. PATIENT NEEDED BED HE. HAD VOID & BM. BED LOW. BIPAP CONTINUES. BED LOW. CALL LIGHT WITHIN REACH. WILL CONTINUE TO MONITOR.
--- NOTE | 2019-08-30 02:42 | NUR ---
PATIENT ASSIST ONTO BED HE. VOID ONLY. PATIENT GIVEN DIDI CRACKERS, PEANUT BUTTER, & 5% MILK FOR SNACK. BED LOW. CALL LIGHT WITHIN REACH. WILL CONTINUE TO MONITOR.
[2019-08-30 08:00] VITALS: BP 136/82
--- NOTE | 2019-08-30 08:00 | NUR ---
SHIFT ASSMT COMPLETED.BREAKFAST GIVEN.CL IN REACH.
--- NOTE | 2019-08-30 16:00 | NUR ---
RESTING QUIETLY.HAD SOFT BROWN BM X2.
--- NOTE | 2019-08-30 19:09 | NUR ---
GREETED PATIENT AND INTRODUCED MYSELF HER NURSE. PATIENT IS RESTING QUIETLY WATCHING TV AT THIS TIME. RESPIRATIONS EVEN. NO S/S OF DISTRESS. O2 AT 4L IN USE VIA NC. CALL LIGHT IN REACH. DENIES ANY NEEDS AT THIS TIME.
[2019-08-30 20:00] VITALS: BP 124/77
--- NOTE | 2019-08-30 20:31 | NUR ---
RECHECKED PTS. FSBS. CURRENT FSBS - 123. WCTM.
--- NOTE | 2019-08-30 20:31 | NUR ---
PATIENTS FSBS WAS 64. GAVE PATIENT 240 OZ OF ORANGE JUICE, 1 MILK, PEANUT BUTTER AND DIDI CRACKERS. WCTM.
--- NOTE | 2019-08-31 03:24 | NUR ---
PT RESTING QUIETLY WITH EYES CLOSED. RESPIRATIONS EVEN. NO S/S OF DISTRESS. BIPAP IN USE. CALL LIGHT IN REACH.
[2019-08-31 06:48] LABS: BASOPHILS 0.2 % (0-2); EOSINOPHILS 1.5 % (0-7); LYMPHOCYTES 13.3 % (15-50); MCH 26.6 pg (26.0-34.0); MCV 91.7 fL (80.0-100.0); MEAN PLATELET VOLUME 11.6 fL (7.4-10.4); MONOCYTES 10.4 % (2-11); NEUTROPHILS 70.6 % (40-80); PLATELET COUNT 93 10x3/uL (130-400); RBC 3.38 10x6/uL (4.00-5.40); RDW 19.6 % (11.5-14.5); WBC 4.1 10x3/uL (4.8-10.8)
[2019-08-31 06:59] LABS: ANION GAP 9.3 mmol/L (8-16); CARBON DIOXIDE 28.7 mmol/L (21.0-32.0); CREATININE - SERUM 1.5 mg/dL (0.6-1.3)
[2019-08-31 07:18] LABS: PLATELET ESTIMATE DECREASED
[2019-08-31 07:54] VITALS: BP 142/92
--- NOTE | 2019-08-31 14:06 | NUR ---
WORKING WITH THERAPY AT PRESENT
--- NOTE | 2019-08-31 19:00 | NUR ---
GREETED PATIENT AND INTRODUCED MYSELF HER NURSE. PATIENT IS CURRENTLY LAYING IN BED WATCHING TV. RESPIRATIONS EVEN. NO S/S OF DISTRESS. ASSISTED PATIENT WITH BIPAP TO IMPROVE BREATHING. PATIENT DENIES ANY FURTHER NEEDS. CALL LIGHT IN REACH.
[2019-08-31 19:45] VITALS: BP 132/74
--- NOTE | 2019-09-01 01:58 | NUR ---
PATIENT RESTING QUIETLY WITH EYES CLOSED. RESPIRATIONS EVEN. NO S/S OF DISTRESS. BIPAP IN USE. CALL LIGHT IN REACH.
[2019-09-01 08:00] VITALS: BP 99/58
--- NOTE | 2019-09-01 13:18 | NUR ---
Nutrition follow-up: Diet: consistent CHO with Glucerna Shake TID PO Intake 25-50% of meals Labs reviewed +BM Wt: 111# PO intake poor to fair at meals; pt eating snacks RDN following.
[2019-09-01 20:00] VITALS: BP 92/52
--- NOTE | 2019-09-01 20:00 | NUR ---
PATIENT RECEIVED SITTING UP IN BED. ASSESSMENT & VITAL SIGNS DONE. 02 CONTINUES. NO C/O PAIN OR DISTRESS. ALARM ON. BED LOW. CALL LIGHT WITHIN REACH. WILL CONTINUE TO MONITOR.
--- NOTE | 2019-09-02 02:48 | NUR ---
PATIENT USED CALL LIGHT FOR ASSIST. PATIENT REQUEST FOR BED HE. NO URINE OR BM AT THIS TIME. BIPAP CONTINUES. PATIENT PILLOW UNDER RIGHT SIDE PER PATIENT REQUEST. BED LOW. CALL LIGHT WITHIN REACH. WILL CONTINUE TO MONITOR.
--- NOTE | 2019-09-02 03:53 | NUR ---
I have reviewed this patient and I concur with the Shift Assessment completed by the Licensed Practical Nurse today this shift.
[2019-09-02 07:24] LABS: HEMATOCRIT 32.2 % (36.0-48.0); HEMOGLOBIN 9.6 g/dL (12-16); MCHC 29.8 g/dL (31.0-37.0); MCV 90.7 fL (80.0-100.0); MEAN PLATELET VOLUME 10.8 fL (7.4-10.4); PLATELET COUNT 89 10x3/uL (130-400); RBC 3.55 10x6/uL (4.00-5.40); RDW 20.1 % (11.5-14.5)
[2019-09-02 07:28] LABS: ANION GAP 11.9 mmol/L (8-16); CALCIUM 7.9 mg/dL (8.5-10.1); CARBON DIOXIDE 26.9 mmol/L (21.0-32.0); CREATININE - SERUM 1.5 mg/dL (0.6-1.3); POTASSIUM - SERUM 4.8 mmol/L (3.5-5.1)
--- NOTE | 2019-09-02 08:00 | NUR ---
SHIFT ASSMT COMPLETED.
[2019-09-02 08:18] LABS: BASOPHILS 3 % (0-2); EOSINOPHILS 2 % (0-7); LYMPHOCYTES 14 % (15-50); MONOCYTES 9 % (2-11); NEUTROPHILS 60 % (40-80); PLATELET ESTIMATE DECREASED
[2019-09-02 08:19] LABS: ANISOCYTOSIS OCC; POIKILOCYTOSIS OCC
[2019-09-02 08:56] VITALS: BP 144/78
--- NOTE | 2019-09-02 14:05 | NUR ---
CARE TEAM MEETING: PATIENT HAS HAD A DECLINE IN THERAPY AND TEAM RECCOMENDS PATIENT NEEDS TO DSICHARGE TO SNF. CLINICAL UPDATES HAVE BEEN FAXED TO ARMANDO SCALES AT [facility] WITH CONFORMATION RECIEVED AND REFERRAL HAS BEEN FAXED TO [facility]. WILL CONTINUE TO FOLLOW WITH PATIENT.
--- NOTE | 2019-09-02 19:45 | NUR ---
PT IN BED, HEELS FLOATED, BIPAP ON, FALL PRECAUTIONS IN PLACE, NO NEEDS NOTED, FLUIDS/CALL LIGHT WITHIN REACH
[2019-09-03 01:48] VITALS: BP 131/89
--- NOTE | 2019-09-03 04:21 | NUR ---
pt has called five times within the last 2 hours for the bedpan without any urine produced
--- NOTE | 2019-09-03 08:00 | NUR ---
SHIFT ASSMT COMPLETED.
[2019-09-03 08:18] VITALS: BP 141/95
--- NOTE | 2019-09-03 12:00 | NUR ---
SITTING UP EATING LUNCH.
--- NOTE | 2019-09-03 19:40 | NUR ---
PT IN BED, PUT BIPAP ON, NO NEEDS NOTED, FALL PRECAUTIONS IN PLACE, FLUIDS/CALL LIGHT WITHIN REACH
[2019-09-04 00:07] VITALS: BP 127/75
--- NOTE | 2019-09-04 00:45 | NUR ---
PT ON BED HE, NO OTHER NEEDS NOTED,FALL PRECAUTIONS IN PLACE, FLUIDS/CALL LIGHT WITHIN REACH
[2019-09-04 08:00] VITALS: BP 136/80
--- NOTE | 2019-09-04 08:00 | NUR ---
LAYING IN BED WITH BIPAP IN PLACE. DENIES PAIN OR HUNGER. LUNG SOUNDS ARE WET TO ALL LOBES. PT APPETITE IS POOR AND SHE IS WEAKER.
--- NOTE | 2019-09-04 10:25 | NUR ---
[facility] DOES NOT EXCEPT PATIENT INSURANCE. REFERRAL FAXED TO [facility]. WILL CONTINUE TO FOLLOW WITH PATIENT.
--- NOTE | 2019-09-04 14:12 | RHP ---
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 HISTORY OF PRESENT ILLNESS: The patient is admitted secondary to COPD myopathy. She is a 69-year-old female patient who has got a history of lung cancer, status post chemo. She got COPD, she has got diabetes, hypertension, coronary artery disease and history of depression. She presented on 07/28/2019 with dyspnea, dyspnea on exertion and a D-dimer of 2.84. She was admitted with congestive heart failure, COPD and lung cancer. She is seen by pulmonary and also by her primary doctor upon admission. The patient has been followed throughout her hospital stay with OT, PT and speech therapy, but speech therapy did sign off on 07/30/2019. She had been on 2 liters of nasal cannula. She desaturated down at times to 79% during any exertion. She is on BiPAP. She is being monitored closely for intake and output and clearance for UTI and acute kidney injury. She is on supplemental O2. She has got fingerstick blood sugars and these need to be followed closely since she is on IV steroids. She is on IV antibiotics, electrolyte protocol, has proximal muscle weakness, balance deficits. She has got decreased activity tolerance. She has got a risk for falls. She has got low endurance, unsteady on her gait and balance. She has got inability to care for herself. She actually lives alone, but her son does live next door and checks on her frequently. She was completely independent with her ADLs and mobility prior to this using a rolling walker. Now, she is max assist for ADLs, mod to max assist for mobility. She and her family would like for her to return back home at her prior level of functioning. COMORBIDITIES: Include COPD, debility, decreased mobility, decreased in physical functioning, weakness, dyspnea, diabetes, got a history in the past of AFib with rapid ventricular response. She is an ex-smoker. She has got oral candidiasis at times, UTI, thrush. PAST MEDICAL HISTORY: Significant for cataracts, glaucoma, diabetes, hypertension, got a history of stents and angioplasty in the past, pacemaker placement, COPD, atrial fib, depression, anxiety, tobacco use. PAST SURGICAL HISTORY: Includes hysterectomy and stents times 3. ALLERGIES: No known drug allergies. CURRENT MEDICATIONS: Now include Tylenol 650 mg every 6 hours p.r.n. She is on a tapering dose of Deltasone. She is on Onglyza 5 mg daily, propranolol LA 160 mg daily, Zestril 20 mg daily. She is on Pristiq 100 mg daily, Abilify 20 mg daily, glipizide 10 mg daily, Protonix 80 mg daily. She is on Lyrica 100 mg b.i.d., MiraLax 17 g in 8 ounces of water daily, Singulair 10 mg at bedtime, Tessalon Perles 100 mg t.i.d., Eliquis 2.5 mg b.i.d., Brovana 15 mcg b.i.d., budesonide 0.5 mg b.i.d., clonidine 0.1 mg every 6 hours p.r.n. She is on Atrovent every 6 hours, Xanax 0.5 mg every 8 hours p.r.n. She is on a glucose per protocol. She is on Merrem 1 g every 12 hours and low resistant sliding scale with insulin. HABITS: Does have a distant history in the past of tobacco use. HISTORY AND PHYSICAL [id number] TIM GARCIA FAMILY HISTORY: Noncontributory. SOCIAL HISTORY: The patient hopes to return back home and get back to her prior level of functioning. Once again, does have her son who lives next door to check on her frequently. REVIEW OF SYSTEMS: GENERAL: Does complain of weakness and fatigue. HEENT: Denies cold, cough, or congestion. CARDIOVASCULAR: Denies any chest pain. LUNGS: Does complain of shortness of breath. PHYSICAL EXAMINATION: VITAL SIGNS: Stable. Her blood pressure is 131/80. Her sat is 94%, respirations 21, pulse 76. GENERAL: A thin elderly female, in no acute distress upon exam. HEENT: Normocephalic and atraumatic. Mucosa moist. NECK: Supple. No lymphadenopathy. LUNGS: Clear in upper gill with decreased breath sounds in the bases. HEART: Irregular rate and rhythm. ABDOMEN: Soft, benign, and nondistended. Positive bowel sounds times 4. EXTREMITIES: No clubbing, cyanosis or edema. She does have changes consistent with peripheral vascular disease. NEUROLOGIC: She does have proximal muscle weakness. LABORATORY DATA: White count 10.7, H&H of 9.6 and 31.7 and platelet count is 147. Her sodium is 137, potassium 4.2, BUN and creatinine of 55 and 1.5 and blood sugar is noted to be 70. ASSESSMENT: This is a 69-year-old female patient admitted to rehab with a working diagnosis of chronic obstructive pulmonary disease induced myopathy. The patient has potential to make improvement. We instituted the following multidisciplinary therapies including, but not limited to physical, occupational, respiratory, speech, nutritional services, prosthetics and orthotics. Given her complex medical condition and risks for more complications, rehabilitation services cannot be provided at a low level of care such as nursing home facility. PLAN: 1. Admit to [facility] for intensive inpatient therapy to include the following disciplines: A. Physical therapy to improve gait, all transfer skills and bed mobility to a modified independent level. B. Occupational therapy to improve activities of daily living. C. Case management to assist with discharge planning and placement options. D. Nutrition to assist with nutritional needs. E. Rehabilitation nursing to assist in monitoring the patient's underlying medical conditions and to assist with any type of bowel or bladder management. 2. The patient's current medication and medical care will be continued. 3. The patient will be placed on standard fall precautions. 4. The patient estimated length of stay is approximately 7-10 days. 5. We will continue to taper on her Deltasone at this time. We will watch her blood sugars closely. We will work on getting her back ambulatory again and back home. HISTORY AND PHYSICAL [id number] TIM GARCIA TRANSINT:[id number] Voice Confirmation ID: [id number] DOCUMENT ID: [id number] ELSY notes whether there has been none or any medical/functional change since admission: - No change since prescreen. ELSY attests patient continues to be appropriate for IRF: - Continues to be appropriate. MARLENI GOODMAN MD at 1412 CC: [id number] DICTATION DATE: 08/21/19 1100 SURVEYING CREW RODMAN: 08/21/19 1203 ADM IN [place] [id number] [place] [address]
--- NOTE | 2019-09-04 14:58 | NUR ---
PATIENT HAS BEEN ACCPETED TO [facility] AND WILL DISCHARGE THERE ON 09/07/19. WILL CONTINUE TO FOLLOW WITH PATIENT.
--- NOTE | 2019-09-04 17:52 | NUR ---
DID NOT EAT SUPPER. NO INSULIN GIVEN. HAS HAD HARDER TIME BREATHING TODAY. HAS WORN BIPAP MORE TODAY. NOT COUGHING MUCH TODAY AND C/O INCREASED FATIGUE. CALL LIGHT IN REACH
--- NOTE | 2019-09-04 20:00 | NUR ---
PATIENT RECEIVED LAYING IN BED. BIPAP ON. ASSESSMENT & VITAL SIGNS DONE. NO C/O PAIN. BED LOW. ALARM ON. CALL LIGHT WITHIN REACH. WILL CONTINUE TO MONITOR.
[2019-09-04 20:46] VITALS: BP 120/62
--- NOTE | 2019-09-04 21:24 | NUR ---
PATIENT FSBS 75. PATIENT ATE PUDDING CUP. WILL CONTINUE TO MONITOR.
--- NOTE | 2019-09-05 03:59 | NUR ---
PATIENT EYES CLOSED. CONTINUES ON BIPAP. BED LOW. ALARM ON. CALL LIGHT WITHIN REACH. WILL CONTINUE TO MONITOR.
--- NOTE | 2019-09-05 04:23 | NUR ---
I have reviewed this patient and I concur with the Shift Assessment completed by the Licensed Practical Nurse today this shift.
[2019-09-05 10:15] VITALS: BP 113/76
[2019-09-05 19:42] VITALS: BP 126/81
--- NOTE | 2019-09-05 20:00 | NUR ---
PATIENT RECEIVED SITTING UP IN BED. BIPAP OFF. 02@4.5L NC PLACED ON PATIENT. ASSESSMENT & VITAL SIGNS DONE. BED LOW. ALARM ON. CALL LIGHT WITHIN REACH. WILL CONTINUE TO MONITOR.
--- NOTE | 2019-09-05 22:46 | NUR ---
I have reviewed this patient and I concur with the Shift Assessment completed by the Licensed Practical Nurse today this shift.
--- NOTE | 2019-09-06 02:53 | NUR ---
PATIENT EYES CLOSED. RESPIRATIONS 18 & EVEN. BIPAP IN USE. LEGS & RIGHT ARM ELEVATED. BED LOW. ALARM ON. CALL LIGHT WITHIN REACH. WILL CONTINUE TO MONITOR.
[2019-09-06 08:00] VITALS: BP 138/87
--- NOTE | 2019-09-06 09:10 | NUR ---
PT UNABLE TO VOID. BLADDER DISTENDED. 16F F/C PLACED. RETURN WAS 1300 ML. SHE STATES SHE COULD NOT VOID MUCH AT ALL LAST PM AND WAS UNCOMFORTABLE. SHE IS WEAK AND FRAIL. WEARS BIPAP MOST OF TIME. ON OXYGEN 5L NC. APPETITE AND ORAL INTAKE VERY POOR. RT FOOT 4+ PITTING EDEMA NOTED. RT FOOT DROP ALSO NOTED. BUE HAVE 3-4+ EDEMA IN ODD PLACES LIKE HER ELBOW AND FORE ARM BUT NOT HER WRIST. CALL LIGHT AND SUCTION WAND IN HAND. SIDE RAILS UP X2, BED IN LOWEST POSITION.
--- NOTE | 2019-09-06 14:48 | NUR ---
RESTING QUIETLY AT PRESENT. HAS BEEN RESTLESS AND ANXIOUS TODAY. HAS KEPT PULLING OXYGEN OFF AND PUTTING IT ON AND PUTTING ON AND TAKING OFF BIPAP ALSO. XANAX GIVEN AT PT REQUEST. STILL HAS MEPILEX ON BUTTOCKS. RT FOOT HAS 4+ EDEMA AND PRONOUNCED FOOT DROP. HE IS NOT LEANING HER HEAD MUCH TO THE RIGHT TODAY BEFORE. APPETITE STILL POOR. ORAL INTAKE POOR. BUE ARE EDEMATIOUS. TOTAL CARE FOR ALL TASKS. CALL LIGHT IN REACH. HEAD OF BED ELEVATED 70 DEGREES.
--- NOTE | 2019-09-06 18:05 | NUR ---
ATE VERY LITTLE SUPPER. DENIES BEING HUNGERY. LUNGS SOUND WET TO EACH LOBE. PRODUCTIVE COUGH NOTED OF DARK BROWN SPUTUM. HAS YAUNKER FOR SUCTION IN HAND. F/C PATENT WITH CLOUDY URINE NOTED. IS ON HIGH TEJINDER OXYGEN AT 4.5L.
--- NOTE | 2019-09-06 21:30 | NUR ---
PRN NORCO AND XANAX REQESTED AND GIVEN, PT IN BED, NO OTHER NEEDS NOTED, FLUIDS/CALL LIGHT WITHIN REACH
--- NOTE | 2019-09-06 21:40 | NUR ---
PT IN BED, BIPAP ON AT 4L, NO NEEDS NOTED, FALL PRECAUTIONS IN PLACE, DAYSHIFT PLACED CALDERON DUE TO ANURIA REPORTED 1300CC OUT, CALDERON REMAINS IN PLACE AT THIS TIME, REPOSITIONED PT TO RT SIDE, FLUIDS/CALL LIGHT WITHIN REACH
--- NOTE | 2019-09-06 22:30 | NUR ---
PT REQUESTED REPOSITIONING, TUCKED PT TO LFT SIDE, FLUIDS/CALL LIGHT WITHIN REACH
--- NOTE | 2019-09-06 23:30 | NUR ---
PT REQUESTED TO BE REPOSITIONED, THIS RN AND THE MED-II RN PULLED PT UP IN BED, FLUIDS/CALL LIGHT WITHIN REACH
--- NOTE | 2019-09-07 00:11 | NUR ---
PTS BLOOD SUGAR WAS 86, GAVE 2 CHOCOLATE PUDDINGS AND A GLUCERNA, FLUIDS/CALL LIGHT WITHIN REACH REPOSITION PT IN BED, PT CONTINUES TO LEAN TO ONE SIDE
[2019-09-07 01:10] VITALS: BP 93/57
[2019-09-07 05:19] LABS: BASOPHILS 0.2 % (0-2); EOSINOPHILS 0.4 % (0-7); HEMATOCRIT 30.8 % (36.0-48.0); HEMOGLOBIN 9.2 g/dL (12-16); IMMATURE GRANULOCYTES 2.3 % (0-5); LYMPHOCYTES 16.4 % (15-50); MCH 26.8 pg (26.0-34.0); MCHC 29.9 g/dL (31.0-37.0); MCV 89.8 fL (80.0-100.0); MEAN PLATELET VOLUME 10.9 fL (7.4-10.4); MONOCYTES 12.5 % (2-11); NEUTROPHILS 68.2 % (40-80); PLATELET COUNT 94 10x3/uL (130-400); RBC 3.43 10x6/uL (4.00-5.40); RDW 20.6 % (11.5-14.5); WBC 5.5 10x3/uL (4.8-10.8)
[2019-09-07 05:28] LABS: ANION GAP 12.4 mmol/L (8-16); CALCIUM 7.9 mg/dL (8.5-10.1); CARBON DIOXIDE 28.8 mmol/L (21.0-32.0); CREATININE - SERUM 1.5 mg/dL (0.6-1.3); POTASSIUM - SERUM 4.2 mmol/L (3.5-5.1)
--- NOTE | 2019-09-07 07:55 | NUR ---
RESTING QUIETLY IN BED. WEARING BIPAP. F/C DRAINING CLOUDY URINE. CALL LIGHT IN REACH
[2019-09-07 08:10] VITALS: BP 116/67
[2019-09-07 09:31] LABS: PLATELET ESTIMATE DECREASED
--- NOTE | 2019-09-07 10:49 | NUR ---
BIPAP SETTINGS: 14/7 (14-INSPIRATORY) (7-EXPIRATORY) 10 BACK UP RATE 40% FIO2
--- NOTE | 2019-09-07 11:08 | NUR ---
PATIENT DISCHARGING TO [facility] AND WILL TRANSPORT THERE VIA FACILITY [facility]AN. NO HOME HEALTH NEEDED AT THIS TIME, FACILITY WILL ARRANGE FOR BIPAP. SETTING FAXED TO FACILITY.AN APPOINTMENT WITH WILL BE MADE AT TIME OF DISCHARGE FROM FACILITY. PATIENT CHOICE FORM AND IMFM FORMS SIGNED, EXPLAINED AND ONE GIVEN TO PATIENT AND ONE FILED IN CHART. DSICHARGE INSTRUCTIONS FAXED TO PCP, SNF, PATIENT INSURANCE , ARMANDO SCALES, AUTH.#[id number], FAXED TO , WITH CONFORMATION RECIEVED
--- NOTE | 2019-09-07 12:04 | NUR ---
Pt's sacral area is non-blanchable red. It is being protected with mepilex sacral dressing. She is able to turn/reposition herself and is trying to stay on her side while in bed. Wound care will continue monitoring.
--- NOTE | 2019-09-07 13:26 | NUR ---
NH SMOKING TOBACCO PACKER HAND JUST CAME AFTER PT. HE TOOK HER, PAPERWORK AND ALL PER PERSONAL BELONGINGS WITH HIM. REPORT HAS BEEN CALLED TO FRANCINE GAVIRIA LPN AT [facility].
== END 2019-09-07 13:27 | DRG 92 ==
LOC: D.REHAB 16:15
PROVIDERS: ADMIT Emergency Medicine; ATTEND Emergency Medicine
DX: G72.89 Other specified myopathies (principal); N39.0 Urinary tract infection, site not specified; N17.9 Acute kidney failure, unspecified; J44.1 Chronic obstructive pulmonary disease with (acute) exacerbation; R53.81 Other malaise; R53.1 Weakness; R06.02 Shortness of breath; B37.9 Candidiasis, unspecified; I50.9 Heart failure, unspecified; E11.65 Type 2 diabetes mellitus with hyperglycemia; G25.0 Essential tremor; G24.9 Dystonia, unspecified; E78.5 Hyperlipidemia, unspecified; Z87.891 Personal history of nicotine dependence; Z85.118 Personal history of other malignant neoplasm of bronchus and lung; Z95.0 Presence of cardiac pacemaker